=== PATIENT | male | born 1960 | race Caucasian/White ===

== ENCOUNTER 2024-06-15 07:51 | Emergency (ER) | payer MEDICARE, MEDICAID, SELFPAY ==
[2024-06-15 07:53] VITALS: BMI 23.3
[2024-06-15 08:02] VITALS: BP 114/80; PULSE 67; RESP 18; TEMP 36.6; O2SAT 97
--- NOTE | 2024-06-15 08:26 | XR_ITS ---
Examination: CT abdomen with intravenous contrast CT pelvis with intravenous contrast 2-D coronal reconstructions 2-D sagittal reconstructions Date and time of exam:June 15, 2024 1040 hours INDICATIONS: Generalized abdominal pain with diarrhea rectal pain beginning 7 weeks ago. CTDI: vol (mGy) 5.26 DLP: (mGycm) 286 Technique: Multiple axial sections of the abdomen and pelvis have been obtained. 64 slice high-resolution scanner used. 3 mm axial sections have been obtained, post intravenous injection 30 cc [id number] 2-D sagittal, coronal reconstructions obtained. Low dose protocols were performed. One or more of the following dose reduction techniques were used; automated exposure control, adjustment of the mA and/or KV according to patient size, use of iterative reconstruction technique. Findings: 11 mm left lobe liver cyst Gallbladder wall appears minimally thickened Spleen is not enlarged No pancreatic mass 21 mm indeterminate right adrenal nodule Abdominal aortic calcification no aneurysmal dilatation No renal or ureteral calculi, no hydronephrosis Normal appendix No bowel obstruction Colonic diverticulosis Transverse prostate dimension 5.1 cm No diverticulitis Urinary bladder intact Significant osteopenia with advanced disc narrowing L4-L5, L5-S1 Thickening the rectal wall, differential would include proctitis, early rectal tumor not excluded IMPRESSION: 21 mm indeterminate right adrenal nodule, not visualized on the 2012 CT examination Recommend MRI abdomen adrenal glands follow-up, pre and postcontrast to exclude primary or metastatic right adrenal gland tumor Moderate prostatomegaly Thickening of the rectal wall, differential would include early rectal tumor, clinical correlation advised
--- NOTE | 2024-06-15 08:28 | PD.EDRME ---
Rapid Medical Screening Exam E Arrival date/time: 06/15/24 07:51 64-year-old male presents to the emergency department with complaints of watery diarrhea, rectal pain that radiates into his testicles reports is feeling weak. I have greeted and performed a focused initial assessment of this patient. Initial appropriate labs ordered at this time. A comprehensive ED assessment and evaluation of the patient and analysis of all test and completion of medical decision making process will be conducted by additional ED provider. Chief Complaint: General Adult/Misc Complain Time Seen by Provider: 06/15/24 08:04 Vital signs: Vital Signs Temperature 97.9 F 06/15/24 08:02 Pulse Rate 67 06/15/24 08:02 Respiratory Rate 18 06/15/24 08:02 Blood Pressure 114/80 06/15/24 08:02 Pulse Oximetry (%) 97 06/15/24 08:02 Oxygen Delivery Method Room Air 06/15/24 08:02
[2024-06-15 08:44] LABS: Basophils # (Auto) 0.1 Thou/mm3 (0.0-0.2); Basophils % (Auto) 0 % (0-2.5); Eosinophils # (Auto) 0.1 Thou/mm3 (0.0-0.5); Eosinophils % (Auto) 0 % (0-10); Hematocrit 39.7 % (41.0-53.0); Hemoglobin 14.2 g/dL (13.5-16.0); Immature Granulocytes % (Auto) 1 % (0-0); Immature Granulocytes Auto 0.21 Thou/mm3 (0.00-0.00); Lymphocytes # (Auto) 2.2 Thou/mm3 (1.0-4.8); Lymphocytes % (Auto) 9 % (10-50); Mean Corpuscular HGB Conc 35.8 g/dl (31.0-37.0); Mean Corpuscular Hemoglobin 32.1 pg (25.0-35.0); Mean Corpuscular Volume 90 fL (80-100); Monocytes # (Auto) 1.3 Thou/mm3 (0.0-0.8); Monocytes % (Auto) 5 % (0-12); Neutrophils # (Auto) 21.1 Thou/mm3 (1.8-7.7); Neutrophils % (Auto) 85 % (37-80); Nucleated Red Blood Cell % 0 /100 WBC (0); Platelet Count 390 Thou/mm3 (140-440); RDW Standard Deviation 44.4 fL (35.1-43.9); Red Blood Count 4.43 Miln/mm3 (4.50-5.90)
[2024-06-15 09:01] LABS: Alanine Aminotransferase 20 U/L (10-49); Albumin, Serum 4.9 gm/dL (3.4-4.8); Albumin/Globulin Ratio 1.6 (1.2-2.2); Alkaline Phosphatase 183 U/L (46-116); Anion Gap 12 (7-16); Aspartate Amino Transferase 25 U/L (0-34); BUN/Creatinine Ratio 23 Ratio (12-20); Bilirubin,Total 0.7 mg/dL (0.3-1.2); Blood Urea Nitrogen 32 mg/dL (9-23); Calcium 10.5 mg/dL (8.3-10.6); Calcium (Corrected) 10.5 mg/dL (8.5-10.1); Carbon Dioxide 23.4 mMol/L (20.0-31.0); Chloride 96 mMol/L (98-107); Creatinine (Component) 1.4 mg/dL (0.6-1.3); Estimated Creatinine Clearance 46.4 mL/min (>60); Globulin 3.1 gm/dL (2.3-3.5); Glucose 129 mg/dL (74-106); Lipase 35 U/L (12-53); Osmolality,Calculated 271 (275-295); Potassium 3.5 mMol/L (3.4-5.1); Sodium 131 mMol/L (136-145); eGFR 56 See Note
[2024-06-15 09:03] VITALS: BP 94/67; PULSE 88; RESP 17; TEMP 36.5; O2SAT 100
--- NOTE | 2024-06-15 09:21 | PC.NURSE ---
Pt sent from [facility], states ====
--- NOTE | 2024-06-15 09:22 | PC.NURSE ---
Pt comes from [facility] with chronic hemorrhoid issues for about 7 months. States that the pain now radiates to the penis, to the point that he has to sit in warm water to urinate, Pt states that he did originally have constipation issues, but for several days no has had diarrhea. Also states decrease in appetite with n/v. Complains of muscle cramping as well
[2024-06-15 09:23] LABS: Prothrombin Time 10.8 Seconds (9.0-12.2)
--- NOTE | 2024-06-15 09:26 | PD.EDNV ---
Nausea/Vomit./Diarrhea-RME/HPI General Chief complaint: General Adult/Misc Complain Stated complaint: Hemorrhoids flare up Time Seen by Provider: 06/15/24 08:04 Arrival date/time: 06/15/24 07:51 RME / HPI RME / HPI Narrative: 06/15/24 07:51 64-year-old male presents to the emergency department with complaints of watery diarrhea, rectal pain that radiates into his testicles reports is feeling weak. I have greeted and performed a focused initial assessment of this patient. Initial appropriate labs ordered at this time. A comprehensive ED assessment and evaluation of the patient and analysis of all test and completion of medical decision making process will be conducted by additional ED provider. --------- Main ED Evaluation: Patient is a 64-year-old male with past medical history of hypertension, hyperlipidemia, and glaucoma who presents to the ED on 06/15/2024 due to worsening watery diarrhea, rectal pain radiating to the penis and testicles, and feeling generalized weakness for the last 2 weeks. Patient reports these issues started about 7 months ago but have been worsening and increasing in frequency. Patient also noted prior history of constipation and has a prescription for docusate but states he has not been taking it. Yesterday he had about 10 episodes of diarrhea, and sometimes he notes yellow discharge from the rectum. Patient reports the rectal pain is constant, rated about 9/10, worse with bowel movements, better with warm water baths and proctozone hemorrhoid cream. Patient also reports difficulty urinating unless he is in sitting in a warm bath but denies dysuria, frequency, or hematuria. He reports some abdominal cramping with bowel movements but the worst pain is rectal. He denies any hematochezia or melena. He reports intermittent episodes of nausea and vomiting, last episode of vomiting 2 weeks ago. He reports decrease in appetite but is unsure if he has had any weight loss. He denies any recent antibiotic usage. MD complaint: diarrhea Onset (ago): month(s) Description of Diarrhea: water and mucous Associated Abdominal Pain: No Location of pain: other (rectum) Radiation: other (penis and scrotum) Severity: severe Consistency: intermittent Relieving factors: rest and other (warm bath) Exacerbating factors: bowel movement Associated symptoms: loss of appetite, malaise, nausea/vomiting and weakness Related Data Home Medications ?Medication ?Instructions ?Recorded ?Confirmed latanoprost 0.005 % eye drops 1 drp ophthalmic (eye) QPM 03/09/18 06/23/24 timolol maleate 0.5 % eye drops 1 drp ophthalmic (eye) BID 03/09/18 08/02/18 atorvastatin 40 mg tablet 40 mg PO QDAY 06/23/24 06/23/24 brimonidine 0.15 % eye drops 1 drp ophthalmic (eye) Q8H 06/23/24 06/23/24 docusate sodium 100 mg capsule 100 mg PO QDAY 06/23/24 06/23/24 hydrochlorothiazide 25 mg tablet 25 mg PO QDAY 06/23/24 06/23/24 hydrocortisone 2.5 % topical cream 06/23/24 with perineal applicator (Proctozone-HC) losartan 100 mg tablet 100 mg PO QDAY 06/23/24 06/23/24 Previous Rx's ?Medication ?Instructions ?Recorded guaifenesin 100 mg/5 mL oral liquid 200 mg (10 mL) PO Q4H PRN cold 05/11/18 symptoms #237 mL loratadine 10 mg capsule (Claritin 10 mg PO QDAY #10 caps 05/11/18 Liqui-Gel) loperamide 2 mg capsule 2 mg PO Q6H PRN loose stool #30 06/15/24 caps Allergies Allergy/AdvReac Type Severity Reaction Status Date / Time No Known Allergies Allergy Verified 06/22/24 08:48 Review of Systems Review of Systems Systems Reviewed: All systems reviewed, normal except as documented Constitutional Constitutional: Reports chills, Reports fever(s), Reports poor appetite and Reports lethargy Past Medical History Past Medical History Comments PMH COMMENT: Past Medical History: Hypertension, hyperlipidemia, glaucoma Family History: Significant for cancers in maternal side aunts and uncles, mother from lung cancer Surgical History: Cataract removal, stent for glaucoma Social History: Current smoker 1 PPD since age 16 (48 pack years), occasional current alcohol use (one drink every couple months), denies recreational drug use Current Medications: Losartan 100 mg qday, hydrochlorothiazide 25 mg qday, atorvastatin 40 mg qday, docusate 100 mg prn, brimonidine tartrate 0.15% 1 drop q8h, latanoprost 0.005% 1 drop qday (Source: Patient medication bottles) Allergies: No known drug allergies ED Exam Narrative Physical exam: Physical Exam General: Awake and in no acute distress. Conversational and non-toxic appearing, appears older than age. HEENT: Normocephalic, atraumatic, mucous membranes moist. Exotropia of the eyes present. Patient is partially blind. Heart: Regular rate and rhythm, no murmurs. Lungs: Clear to auscultation with no wheezing or crackles. Abdomen: Soft, nondistended, nontender, positive bowel sounds. ?No guarding or rebound tenderness. /Rectal: Perineum is mildly erythematous but without firmness, fluctuance, or tenderness. There is one external hemorrhoid present in the anal opening. Normal anal spincter tone. Prostate is mildly enlarged but smooth without nodules nor tenderness. No stool, mucous, or blood was noted on exam. Neurologic: Alert and oriented x3, no gross neurological deficit, and patient able to move all 4 extremities. Extremities: No edema. Skin: No rash or ecchymoses. Course Quality Measures none Orders Category Date Time Status CT Screening NOW Care 06/15/24 08:26 Completed Consult Immigration Paralegal NOW Care 06/15/24 09:37 Completed NPO STAT Care 06/15/24 08:26 Completed Consult to Gastroenterology Stat Cons 06/15/24 15:[address] abdomen pelvis w con Stat Exams 06/15/24 08:26 Completed CBC Stat Lab 06/15/24 08:30 Completed Calprotectin, Stool* Stat Lab 06/15/24 15:53 Completed Clostridium Difficile PCR Stat Lab 06/15/24 11:30 Completed Comprehensive Metabolic Panel Stat Lab 06/15/24 08:30 Completed Lipase Stat Lab 06/15/24 08:30 Completed Magnesium Stat Lab 06/15/24 08:30 Completed Prothrombin Time with INR Stat Lab 06/15/24 08:30 Completed Stool Culture Stat Lab 06/15/24 11:30 Completed Stool for WBCs Stat Lab 06/15/24 11:30 Completed Urinalysis Stat Lab 06/15/24 11:52 Completed Urine Culture Stat Lab 06/15/24 11:52 Completed Sodium Chloride 0.9% 1000 ml [Ns] 1,000 ml Med 06/15/24 09:56 Discontinued IV 999 mls/hr Vital Signs Vital signs: Vital Signs Temperature 97.9 F 06/15/24 08:02 Pulse Rate 67 06/15/24 08:02 Respiratory Rate 18 06/15/24 08:02 Blood Pressure 114/80 06/15/24 08:02 Pulse Oximetry (%) 97 06/15/24 08:02 Oxygen Delivery Method Room Air 06/15/24 08:02 Nausea/Vomiting/Diarrhea MDM Narrative MDM Narrative:: Patient presents with a chronic to subacute chronicity of watery diarrhea and rectal pain. He endorses history of hemorrhoids and past history of using hemorrhoid ointment as prescribed by his primary care at [facility]. The pain has been worsening and spreading according to the patient to the penis and the testicles. Labs reveal leukocytosis of 25.0 with neutrophilic shift, electrolyte abnormalities including sodium 131, chloride 96, and elevated BUN 32, creatinine 1.4. Patient does not have known CKD according to the patient. Calcium also is slightly elevated at 10.5. At this point differentials may include inflammatory bowel disease, irritible bowel syndrome, malignancy, gastroenteritis, C. diff infection, Juan's gangrene, external hemorrhoids, colitis. BRITTANY may be prerenal secondary to dehydration secondary to bowel losses. A CT abdomen/pelvis with contrast is pending at this time. Update: CT showed 21 mm indeterminate right adrenal nodule, moderate prostatomegaly, thickening of the rectal wall. Patient was informed of results. Consulted with Timothy, and ultimately we decided patient could have workup and be scheduled outpatient for colonoscopy. Patient was comfortable with this plan, informed of all findings on CT, given copy of report and stated he would schedule a follow up with his primary in the next week. Patient data External records reviewed:: [facility] previous records Clinical information provided by:: patient Social determinants that could affect healthcare access:: other (specify) (patient is partially blind and cannot drive) Patient has the following chronic illnesses:: As above How is presenting disease/condition affected by chronic disease/condition?: uneffected by Evaluation data The following diagnostics were reviewed and interpreted by me:: lab results and radiology exam(s) Lab and/or radiology exams considered but not ordered:: Ordered Interpretation Summary: Labs reveal leukocytosis of 25.0 with neutrophilic shift, electrolyte abnormalities including sodium 131, chloride 96, and elevated BUN 32, creatinine 1.4. Patient does not have known CKD according to the patient. Calcium also is slightly elevated at 10.5. ------- CT abdomen with intravenous contrast CT pelvis with intravenous contrast Findings: 11 mm left lobe liver cyst Gallbladder wall appears minimally thickened Spleen is not enlarged No pancreatic mass 21 mm indeterminate right adrenal nodule Abdominal aortic calcification no aneurysmal dilatation No renal or ureteral calculi, no hydronephrosis Normal appendix No bowel obstruction Colonic diverticulosis Transverse prostate dimension 5.1 cm No diverticulitis Urinary bladder intact Significant osteopenia with advanced disc narrowing L4-L5, L5-S1 Thickening the rectal wall, differential would include proctitis, early rectal tumor not excluded IMPRESSION: 21 mm indeterminate right adrenal nodule, not visualized on the 2012 CT examination Recommend MRI abdomen adrenal glands follow-up, pre and postcontrast to exclude primary or metastatic right adrenal gland tumor Moderate prostatomegaly Thickening of the rectal wall, differential would include early rectal tumor, clinical correlation advised ------- Medications / Prescriptions Medications / Prescriptions considered but not ordered:: Given Medication administrations:: Medication Administration History Discontinued Medications Sodium Chloride (Ns) 1,000 mls @ 999 mls/hr IV .Q1H1M ONE Stop: 06/15/24 10:56 Last Infusion: 06/15/24 11:06 Dose: Infused Documented By: Admin: 06/15/24 10:05 Dose: 999 mls/hr Documented By: CS Given Consultations Consultation(s) initiated? (list below): No Consultation #1 (Physician, Specialty, Details): Gastroenterology on-call, Dr. Aguirre 12:07 Stated he was currently in with a patient, will call back 15:38 Discussed patient's presentation, examination, and findings - recommends C. diff studies, fecal calprotectin, ANCA, starting GoLytely prep for colonoscopy tomorrow. 17:[address] Aguirre, as the patient is stable and presenting issues are more chronic, he may get colonoscopy outpatient. Patient may call Dr. Aguirre's office to schedule an appointment. Diagnosis Nausea Differential Diagnosis: traveler's diarrhea, food poisoning, clostridium difficile infection and dehydration Most likely diagnosis given after review of the tests above:: Irritable bowel disease Admission Indicated Admission indicated?: not indicated Admission Request Was there a request for admission?: No Disposition Plan Disposition Plan: Discharge Discharge Attestation Discharge Attestation: The patient and all family members were given an opportunity to ask questions and understood the discharge instructions. Discharge instructions specifically effects, indications for sooner follow up or return to the emergency department, and the expected course of current diagnosis. Patient condition: Stable Discharge Plan Plan Patient Disposition: HOME (Self Care) Patient condition on transfer: Stable Prescriptions/Referrals Prescriptions/Med Rec: New loperamide 2 mg capsule 2 mg PO Q6H PRN (Reason: loose stool) Qty: 30 0RF No Action loratadine [Claritin Liqui-Gel] 10 mg capsule 10 mg PO QDAY Qty: 10 0RF guaifenesin 100 mg/5 mL liquid 200 mg PO Q4H PRN (Reason: cold symptoms) Qty: 237 0RF latanoprost 0.005 % Drops 1 drp OPHTHALMIC (EYE) QPM timolol maleate 0.5 % Drops 1 drp OPHTHALMIC (EYE) BID brimonidine 0.15 % drops 1 drp OPHTHALMIC (EYE) Q8H Patient Comments: INSTILL 1 DROP INTO BOTH EYES EVERY 8 HOURS FOR 30 DAYS hydrochlorothiazide 25 mg tablet 25 mg PO QDAY atorvastatin 40 mg tablet 40 mg PO QDAY losartan 100 mg tablet 100 mg PO QDAY docusate sodium 100 mg capsule 100 mg PO QDAY hydrocortisone [Proctozone-HC] 2.5 % cream with perineal applicator Referrals: Obdulia Aguirre MD [Physician] - In 1 week No Primary/Family,Physician [Primary Care Provider] - In 1 week Problem List Clinical Impression: Diarrhea, Pain in rectum Patient/Caregiver Discharge Instructions Discharge Activity: activity as tolerated and resume usual activities Education Materials: Low-Fiber Diet, Treating Diarrhea, Self-Care for Vomiting and Diarrhea, Anatomy of the Digestive System, ED Diarrhea, Unknown Cause Additional Instructions: You will need a colonoscopy procedure to further investigate your diarrhea and rectal pain. CT scan findings showed that there is some enlargement of your prostate, thickening of the rectum which needs to be investigated further, and a 2 cm nodule on the right adrenal gland (above the kidney) which may need further investigation as well. Please bring these results to your primary doctor. Your primary doctor should also review the results of the stool studies done here at the hospital after they have resulted in a few days. Please make an appointment for Dr. Aguirre's office: [address] [place] [address] If unable to make a direct appointment, please call your primary doctor's office and schedule an appointment as soon as possible and ask for a referral. You should also ask for a referral to see a Urologist for the problems with urinating. Print Language: Northern Irish Stand Alone Forms: Julee Award Info., Patient Portal Info Letter Attestation Attestation The patient was seen by the PGY 2. I, the supervising physician, also encountered and examined the patient and remained present during the entire ER visit. With the PGY 2 we formulated the encounter, workup, management, treatment, and medical decision making. I agree with the plan and documentation. On my encounter patient notes that he has been told he has hemorrhoids and has had intermittent diarrhea with occasional blood that he describes as nonpainful. He denies anterior abdominal pain as well. I was present also as a food and beverage attendant with the PGY 2 rectal exam where it notes little to no pain around the rectal verge area, nor with palpation of the prostate so overall clinically very well-appearing. Laboratory testing is otherwise unremarkable, but it is significant for a mildly elevated leukocytosis at 20,000, and a creatinine of 1.4. Patient has no baseline labs to compare to, he is clinically well-appearing, I do not feel that these are likely to be acute findings. As this firmness or this mass on the CT appears to be painless on exam, this raises concerns for a malignancy. I do not feel that this is a proctitis or an infectious/inflammatory process as he has minimal to almost no pain on exam. Case discussed with the GI specialist and we do agree he is appropriate for outpatient colonoscopy.
[2024-06-15] MEDS: SODIUM CHLORIDE 0.9% 1000 ML 1,000 ML 999 ML IV (10:05)
[2024-06-15 10:10] VITALS: BP 90/67; PULSE 83; RESP 21; TEMP 36.5; O2SAT 100
[2024-06-15 12:00] VITALS: BP 94/67; PULSE 79; RESP 19; TEMP 36.7; O2SAT 99
[2024-06-15 13:04] LABS: Collection Type, Urine Catheter; Squamous Epithelial Cell,Urine 0 /hpf (0-5)
[2024-06-15 13:18] LABS: Bilirubin,Urine Negative (Negative); Blood,Urine Negative (Negative); Clarity,Urine Clear (Clear/Hazy); Color,Urine Lt-Yellow (Lt Yel-Yel); Glucose, Urine Negative (Negative); Hyaline Casts,Urine < 1 /hpf (0-1); Ketones,Urine Negative (Negative); Leukocyte Esterase,Urine Negative (Negative); Nitrite,Urine Negative (Negative); Protein,Urine Negative (Neg - Trace); RBC,Urine 1 /hpf (0-3); Specific Gravity,Urine 1.011 (1.001-1.035); Urobilinogen,Urine Negative mg/dL (0.0-1.0); WBC,Urine 2 /hpf (0-5)
[2024-06-15 13:18] LABS: Stool for WBCs None Seen (Negative)
[2024-06-15 13:57] VITALS: BP 104/71; PULSE 78; RESP 20; TEMP 36.8; O2SAT 99
[2024-06-15 16:11] VITALS: BP 113/64; PULSE 68; RESP 20; TEMP 36.4; O2SAT 100
[2024-06-15 17:28] LABS: Clostridium Difficile PCR Negative (Negative)
--- NOTE | 2024-06-15 18:34 | PC.NURSE ---
Miguel called for pt to self pay per charge nurse
[2024-06-23 06:24] LABS: Calprotectin, Stool* 166 mcg/g
== END 2024-06-15 18:11 | disposition home or self-care (01) ==
PROVIDERS: Nurse Practitioner Primary Care; Student in an Organized Health Care Education/Training Program; Emergency Provider Emergency Medicine
DX: K62.89 Other specified diseases of anus and rectum (principal); E27.8 Other specified disorders of adrenal gland; K64.4 Residual hemorrhoidal skin tags; R19.7 Diarrhea, unspecified; N40.0 Benign prostatic hyperplasia without lower urinary tract symptoms; D72.829 Elevated white blood cell count, unspecified; R79.89 Other specified abnormal findings of blood chemistry; R94.4 Abnormal results of kidney function studies; E87.8 Other disorders of electrolyte and fluid balance, not elsewhere classified
CPT/HCPCS: 36415; 74177; 80053; 81001; 83690; 83735; 83993; 85025; 85610; 86021; 86036; 87015; 87045; 87046; 87086; 87205; 87493; 87899; 96360; 99285; A4649; J7030; Q9967

== ENCOUNTER 2024-06-22 08:45 | Inpatient (IN) | payer MEDICARE, MEDICAID, SELFPAY ==
[2024-06-22] VITALS (9 sets, daily range): BP systolic 97–124; BP diastolic 56–62; PULSE 70–122; RESP 16–100; TEMP 35.4–36.7; O2SAT 98–100; BMI 20.8
--- NOTE | 2024-06-22 09:05 | EDNOTE_ITS ---
ED GI Bleed RME/HPI General Chief complaint: GI Bleed Stated complaint: RECTAL MASS CAUSING SEPSIS CRITERIA PER [facility] Time Seen by Provider: 06/22/24 08:58 Arrival date/time: 06/22/24 08:45 RME / HPI RME / HPI Narrative: 64 year old male with history of hypertension, hyperlipidemia presents to the ED sent from PCP at [facility] for evaluation of rectal mass and rule out sepsis. Patient states he had a CT performed on 06/15/2024 and on follow-up appointment today was told there was rectal wall thickening and advised to come for further evaluation. Patient additionally reported diarrhea with no blood on/off for 2 months. Related Data Home Medications ?Medication ?Instructions ?Recorded ?Confirmed latanoprost 0.005 % eye drops 1 drp ophthalmic (eye) Q PM 03/09/18 08/02/18 timolol maleate 0.5 % eye drops 1 drp ophthalmic (eye) BID 03/09/18 08/02/18 Previous Rx's ?Medication ?Instructions ?Recorded guaifenesin 100 mg/5 mL oral liquid 200 mg (10 mL) PO Q4H PRN cold 05/11/18 symptoms #237 mL loratadine 10 mg capsule (Claritin 10 mg PO QDAY #10 c aps 05/11/18 Liqui-Gel) loperamide 2 mg capsule 2 mg PO Q6H PRN loose stool #30 06/15/24 caps Allergies Allergy/AdvReac Type Severity Reaction Status Date / Time No Known Allergies Allergy Verified 06/22/24 08:48 Review of Systems Review of Systems Narrative Review of Systems: Constitutional: DENIES; Fevers Eyes: DENIES; Loss of vision Head/Ear/Nose: DENIES; Loss of hearing Throat: DENIES; Dysphagia Cardiovascular: DENIES; Chest pain, dyspnea or syncope Respiratory: DENIES; Shortness of breath Gastrointestinal: SEE HPI +diarrhea, rectal pain DENIES; Rectal bleeding or melena. Genitourinary: DENIES; Dysuria (painful or difficult urination) Musculoskeletal: DENIES; Arthralgia (pain in a joint),; Skin: DENIES; Rash Neurological: DENIES; Loss of function or movement Psychiatric: DENIES; recent major life stressor, emotional problem, illicit drug use or abuse Endocrinology: DENIES; Weight change Hematologic/Lymphatic: DENIES; Abnormal bruising Allergic/Immunologic: DENIES; Urticaria (hives) Past Medical History Past Medical History CARDIAC: Positive Cardiac Disorders (HTN) and Hypertension RESPIRATORY: Positive Bronchitis GASTROINTESTINAL: Positive Gastrointestinal Disorders and Hemorrhoids ENT: Positive Cataracts and Glaucoma OTHER HISTORY: Positive Chicken Pox, Measles and Mumps Family History FAMILY HISTORY: Positive Family Cancer (Many types on mom's side) Social History SMOKING STATUS: Heavy (> 1 pack/day) ED Exam Narrative Physical exam: Physical Exam: General: The vital signs were reviewed. Patient is hypotensive and tachycardic on arrival. The patient is non-toxic, in no apparent distress and appears healthy with a patent airway, no respiratory distress and has no apparent circulatory problems. Head & Scalp: Normocephalic, atraumatic. Face: Appears normal and is without lesions, deformity. Ears: Left external pinna appears normal. Right external pinna appears normal. Eyes: The sclera is anicteric. No obvious photophobia. The Left and Right Orbit/Lid/Conjunctiva appears normal without swelling, discoloration or injection. Nose: The nose is without deformity, discharge or tenderness; Throat: Appears normal. The mucous membranes are pink and moist without exudates, redness or mass seen. The tongue appears normal. Neck: The neck is supple and no apparent mass or adenopathy. Chest: The chest wall is normal in size and symmetry and has no chest wall tenderness or crepitus. The patient displays normal ventilator effort without retractions, accessory muscle use and has adequate air movement bilaterally with no wheezes and no rales. Cardiovascular: Regular rate and rhythm; No murmurs, rubs, or gallops; Gastrointestinal: The abdomen appears normal. No obvious hernias or mass. The abdomen is soft and benign, non-distended, with no pain, no guarding and no rebound tenderness. Bowel sounds are present and normal sounding. No CVA tenderness. Genitourinary: Rectal exam was done with some minimal hematochezia and he is got an obvious posterior rectal mass probably for 4 cm in length by 2 cm wide Back/Spine: Normal Spektor nontender Extremities/Musculoskeletal/lymphatic: The bilateral upper and lower extremities are warm. There is no evidence of arterial insufficiency. There is no evidence of venous insufficiency/edema. The patient spontaneously moves bilateral upper and lower extremities with no pain and no limitation of movement. There is no apparent, injury or trauma. Skin: The skin is warm, dry and intact. No rashes. No petechia. No purpura. No abnormal bruising. The color is appropriate with no cyanosis. Mental status/Psychiatric: Mental status is appropriate for age. The patient has no apparent delusions, visual hallucinations, no apparent audible hallucinations. The patient has no apparent suicidal thoughts/ideation and no apparent homicidal thoughts/ideation. Neurological: The patient is awake, alert, interactive, cordial, cooperative and is oriented to name and situation. The patient follows commands and answers historical question with no impairment. There is no visual disturbance apparent. The pupils are equal and reactive bilaterally with normal eye movements and no diplopia The bilateral upper and lower extremities have normal strength, normal range of motion and normal functioning. The gait, station and balance appear not tested due to acuity Course Quality Measures none Orders Category Date Time Status Admit to Inpatient Status Routine Admission 06/22/24 14:45 Active Patient Condition Routine Admission 06/22/24 14:45 Ordered Insert IV NOW Care 06/22/24 09:06 Active Insert IV NOW Care 06/22/24 09:06 Active Notify provider NEEDED Care 06/22/24 14:45 Active Occult Blood,Stool (Nursing) NOW Care 06/22/24 09:12 Active Sequential Compression Device QSHIFT Care 06/22/24 14:45 Active Consult to Gastroenterology Routine Cons 06/22/24 14:51 Ordered Diet Clear Liquid Diet 06/22/24 Dinner Active XR chest 1V portable Stat Exams 06/22/24 09:06 Completed A1C [Glycohemoglobin w (eAG)] AM DRAW Lab 06/23/24 05:00 Ordered Blood Culture (Lab) Stat Lab 06/22/24 10:23 Received CBC AM DRAW Lab 06/23/24 05:00 Ordered CBC AM DRAW Lab 06/24/24 05:00 Ordered CBC AM DRAW Lab 06/25/24 05:00 Ordered CBC Stat Lab 06/22/24 09:30 Completed CEA [Carcinoembryonic Antigen] Routine Lab 06/22/24 15:55 Completed Comprehensive Metabolic Panel AM DRAW Lab 06/23/24 05:00 Ordered Comprehensive Metabolic Panel AM DRAW Lab 06/24/24 05:00 Ordered Comprehensive Metabolic Panel AM DRAW Lab 06/25/24 05:00 Ordered Comprehensive Metabolic Panel Stat Lab 06/22/24 09:30 Completed Lactate (Lactic Acid) Stat Lab 06/22/24 09:30 Completed Lipase Stat Lab 06/22/24 09:30 Completed Lipid Panel AM DRAW Lab 06/23/24 05:00 Ordered Magnesium AM DRAW Lab 06/23/24 05:00 Ordered Magnesium AM DRAW Lab 06/24/24 05:00 Ordered Magnesium AM DRAW Lab 06/25/24 05:00 Ordered Prothrombin Time with INR Stat Lab 06/22/24 09:30 Completed Thyroid Stimulating Hormone AM DRAW Lab 06/23/24 05:00 Ordered Type and Screen Stat Lab 06/22/24 10:16 Completed Urinalysis Stat Lab 06/22/24 09:55 Completed Urinalysis, C/S if Indicated Stat Lab 06/22/24 09:55 Completed Venous Blood Gas Stat Lab 06/22/24 09:30 Completed Acetaminophen Tab [Tylenol Tab] Med 06/22/24 14:45 Active 650 mg PO Q6H PRN HYDROcodone*/APAP 5/325 [Spade 5/325] Med 06/22/24 14:45 Active 1 tab PO Q4HR PRN NA ROBERTSON/NAHCO3/DANNI/PEG (Golytely) [Golytely] Med 06/22/24 14:45 Discontinued 4,000 ml PO X1 ONE Ondansetron Inj [Zofran Inj] Med 06/22/24 14:45 Active 4 mg IV Q6H PRN Pantoprazole [Protonix] Med 06/22/24 15:00 Active 40 mg PO QDAY Sodium Chloride 0.9% 1000 ml [Ns] 1,000 ml Med 06/22/24 09:15 Active IV 100 mls/hr Sodium Chloride 0.9% 1000 ml [Ns] 1,000 ml Med 06/22/24 09:06 Discontinued IV 999 mls/hr Code Status Routine Oth 06/22/24 14:45 Ordered Oxygen Delivery PRN RT 06/22/24 14:45 Active Vital Signs Vital signs: Vital Signs Temperature 97.9 F 06/22/24 09:00 Pulse Rate 122 H 06/22/24 09:00 Respiratory Rate 18 06/22/24 09:00 Blood Pressure 97/62 06/22/24 09:00 Pulse Oximetry (%) 98 06/22/24 09:00 Oxygen Delivery Method Room Air 06/22/24 09:00 Pulse ox is 98% on room air which is adequate. GI Bleed MDM Narrative MDM Narrative:: Patient is a 64-year-old gentleman who comes in sent by the clinic concerned that he might be septic. Patient arrived tachycardic and hypotensive he had some hematochezia on my rectal exam and he has an obvious rectal mass. He was in no pain. He got a liter of fluid and his vital signs normalized. His white count was 20.3 thousand. And since he was tachycardic a septic alert was called. Bicarb Absorbase CO2 was 19 slightly low BUN is bumped at 45 and creatinine is 1.9 consistent with acute kidney injury lactic acid was urinalysis came back essentially negative. Chest x-ray was unremarkable there are some chronic changes possibly some lower interstitial stuff. Because the patient initially presents as sepsis and got fluids. Because of multiple abnormalities mentioned above the hospitalist was called and they will admit the patient to start this out further hydrate him to get his kidney function hopefully to return to baseline and then Dr. Aguirre will be involved and presumably get biopsies. While the patient may have met sepsis criteria there is actually no source and I believe he is dehydration only. Therefore no antibiotics were given while in the emergency department. Vital signs normalized after 1 L so the full 30 cc/kg bolus was not given since his lactic a feliz was only 1.9. Hospitalist were aware of all this and admitted the patient Patient data External records reviewed:: [facility] previous records (I reviewed ED visit on 06/15/2024 ) Clinical information provided by:: patient Social determinants that could affect healthcare access:: none Patient has the following chronic illnesses:: hypertension, hyperlipidemia How is presenting disease/condition affected by chronic disease/condition?: uneffected by Evaluation data The following diagnostics were reviewed and interpreted by me:: lab results and radiology exam(s) Lab and/or radiology exams considered but not ordered:: None Interpretation Summary: Ordering Physician: Robert Williamson MD Date of Service: 06/22/24 Procedure(s): XR chest 1V portable Accession Number(s): [id number] cc: Robert Williamson MD; Garth Landis MD; NO PRIMARY/FAMILY,PHYSICIAN~ Examination: AP chest single view Technique one AP portable upright chest single view Exam date and time: June 22, 2024 1026 hrs. Indications: Fever today Findings: Marked accentuation interstitial markings at the lung bases Normal heart size No pulmonary edema Prominent osteopenia Impression: Basilar bronchitis versus early bibasilar bronchopneumonia, clinical correlation advised Dictated By: Garth Landis MD Signed By: <Electronically signed by Garth Landis MD in OV> 06/22/24 1038 Medications / Prescriptions Medications or Prescriptions considered but not ordered:: None Medication administrations:: Medication Administration History Acetaminophen (Acetaminophen 325 Mg Tablet) 650 mg PO Q6H PRN PRN Reason: pain and Fever >100.4 Stop: 07/22/24 14:44 Hydrocodone Bitart/Acetaminophen (Hydrocodone/Apap 5/325 Tablet) 1 tab PO Q4HR PRN PRN Reason: PAIN SCALE 4-10(Mod-Sev Stop: 06/27/24 14:44 Sodium Chloride (Ns) 1,000 mls @ 100 mls/hr IV .Q10H ERINN Stop: 07/22/24 09:14 Last Admin: 06/22/24 09:49 Dose: 100 mls/hr Documented By: SAIMA Ondansetron HCl (Ondansetron Inj 2 Mg/Ml Inj 2 Ml) 4 mg IV Q6H PRN; Protocol PRN Reason: NAUSEA OR VOMITING Stop: 07/22/24 14:44 Pantoprazole Sodium (Pantoprazole 40 Mg Tablet) 40 mg PO QDAY ERINN Stop: 07/22/24 14:59 Last Admin: 06/22/24 15:19 Dose: 40 mg Documented By: CS Discontinued Medications Sodium Chloride (Ns) 1,000 mls @ 999 mls/hr IV .Q1H1M ONE Stop: 06/22/24 10:06 Last Infusion: 06/22/24 10:49 Dose: Infused Documented By: Admin: 06/22/24 09:48 Dose: 999 mls/hr Documented By: SAIMA Nicotine (Nicotine Patch 14 Mg/24 Hr Patch.Td24) 14 mg TOP X1 ONE Stop: 06/22/24 15:14 Last Admin: 06/22/24 16:20 Dose: 14 mg Documented By: SAIMA Polyethylene Glycol/Electrolytes (Na Robertson/Nahco3/Danni/Peg (Golytely) 4,000 Ml Btl) 4,000 ml PO X1 ONE Stop: 06/22/24 14:46 Last Admin: 06/22/24 18:30 Dose: 4,000 ml Documented By: HUGO Potassium Chloride (Potassium Chloride 20 Meq Tabcr) 40 meq PO X1 ONE Stop: 06/22/24 15:09 Last Admin: 06/22/24 15:19 Dose: 40 meq Documented By: SAIMA See above Consultations Consultation(s) initiated? (list below): Yes Consultation #1 (Physician, Specialty, Details): I spoke with hospitalist team regarding admission. Discussed patients PMHx, HPI, ED course, exam findings, labs, and radiology results. The hospitalist agree to accept the patient for admission. Diagnosis GI bleed differential diagnosis: hemorrhoids, esophageal varices, Upper gastrointestinal hemorrhage, Lower gastrointestinal hemorrhage and hematochezia Most likely diagnosis given after review of the tests above:: Rectal mass Leukocytosis Admission Indicated Admission indicated?: indicated Admission Request Was there a request for admission?: Yes Admission Attestation Admission request attestation: Discussed case with [] from Hospitalist service regarding admission. Discussed patients ED course, exam findings, labs, and radiology results. The Hospitalist [agrees,declines] to accept the patient for admission. Disposition Plan Disposition Plan: Admit Critical Care Time Critical Care Time Critical Care Time: Yes Total Critical Care Time (min.): 45 Attestation: Hematochezia hypotension tachycardia which responded to fluids and normal lactic acid does not require significant fluid hydration or resuscitation. Nonetheless patient required more attention to address 2 things upfront. The high probability of sudden, clinically significant deterioration in the patient's condition required the highest level of my preparedness to intervene urgently. The services I provided to this patient were to treat and/or prevent clinically significant deterioration. Services included the following: chart data review, reviewing nursing notes and/or old charts, documentation time, insurance healthcare consultant collaboration regarding findings and treatment options, medication orders and management, direct patient care, vital sign assessments and ordering, interpreting and reviewing diagnostic studies and lab tests. Aggregate critical care time includes only time during which I was engaged in work directly related to the patient's care, as described above, whether at bedside or elsewhere in the Emergency Department. It did not include time spent performing other reported procedures or the services of residents, students, nurses or physician assistants. Discharge Plan Plan Patient Disposition: Admit Acute Care w/in Hospital Disposition Comment: Hospitalist to admit Problem List Clinical Impression: Rectal mass, Leukocytosis, Hematochezia, Acute kidney injury
[2024-06-22 09:47] LABS: Lactate (Lactic Acid) 1.9 mMol/L (0.4-2.0)
[2024-06-22 09:48] LABS: Base Excess, Venous -7 (-3-3); Basophils # (Auto) 0.1 Thou/mm3 (0.0-0.2); Basophils % (Auto) 0 % (0-2.5); Eosinophils # (Auto) 0.1 Thou/mm3 (0.0-0.5); Eosinophils % (Auto) 0 % (0-10); Hematocrit 37.9 % (41.0-53.0); Hemoglobin 13.4 g/dL (13.5-16.0); Immature Granulocytes % (Auto) 1 % (0-0); Immature Granulocytes Auto 0.22 Thou/mm3 (0.00-0.00); Lymphocytes # (Auto) 1.7 Thou/mm3 (1.0-4.8); Lymphocytes % (Auto) 9 % (10-50); Mean Corpuscular HGB Conc 35.4 g/dl (31.0-37.0); Mean Corpuscular Hemoglobin 31.8 pg (25.0-35.0); Mean Corpuscular Volume 90 fL (80-100); Monocytes # (Auto) 0.9 Thou/mm3 (0.0-0.8); Monocytes % (Auto) 5 % (0-12); Neutrophils # (Auto) 17.4 Thou/mm3 (1.8-7.7); Neutrophils % (Auto) 85 % (37-80); Nucleated Red Blood Cell % 0 /100 WBC (0); O2 Saturation, Venous 66 % (96-97); PCO2, Venous 38 mmHg (36-56); PO2, Venous 36 mmHg (15-58); Platelet Count 432 Thou/mm3 (140-440); RDW Standard Deviation 44.4 fL (35.1-43.9); Red Blood Count 4.21 Miln/mm3 (4.50-5.90); White Blood Count 20.3 Thou/mm3 (3.8-10.6); pH, Venous 7.31 (7.33-7.66)
[2024-06-22] MEDS: SODIUM CHLORIDE 0.9% 1000 ML 1,000 ML 999 ML IV (09:48)
[2024-06-22] MEDS: SODIUM CHLORIDE 0.9% 1000 ML 1,000 ML 100 ML IV ×2 (09:49→22:41)
[2024-06-22 10:04] LABS: Collection Type, Urine Catheter; Squamous Epithelial Cell,Urine 0 /hpf (0-5)
[2024-06-22 10:10] LABS: Alanine Aminotransferase 22 U/L (10-49); Albumin, Serum 4.7 gm/dL (3.4-4.8); Albumin/Globulin Ratio 1.7 (1.2-2.2); Alkaline Phosphatase 153 U/L (46-116); Anion Gap 15 (7-16); Aspartate Amino Transferase 25 U/L (0-34); BUN/Creatinine Ratio 24 Ratio (12-20); Bilirubin,Total 0.5 mg/dL (0.3-1.2); Blood Urea Nitrogen 45 mg/dL (9-23); Calcium 9.7 mg/dL (8.3-10.6); Calcium (Corrected) 9.7 mg/dL (8.5-10.1); Chloride 97 mMol/L (98-107); Creatinine (Component) 1.9 mg/dL (0.6-1.3); Globulin 2.8 gm/dL (2.3-3.5); Glucose 107 mg/dL (74-106); Lipase 38 U/L (12-53); Osmolality,Calculated 274 (275-295); Potassium 3.1 mMol/L (3.4-5.1); Sodium 131 mMol/L (136-145); Total Protein 7.5 gm/dL (5.7-8.2); eGFR 39 See Note
[2024-06-22 10:12] LABS: Bacteria,Urine Rare; Bilirubin,Urine Negative (Negative); Blood,Urine Negative (Negative); Clarity,Urine Clear (Clear/Hazy); Color,Urine Yellow (Lt Yel-Yel); Culture Indicated,Urine Not Indicated; Glucose, Urine Negative (Negative); Hyaline Casts,Urine 2 /hpf (0-1); Ketones,Urine Negative (Negative); Leukocyte Esterase,Urine Negative (Negative); Nitrite,Urine Negative (Negative); Protein,Urine Negative (Neg - Trace); RBC,Urine < 1 /hpf (0-3); Specific Gravity,Urine 1.017 (1.001-1.035); Urobilinogen,Urine Negative mg/dL (0.0-1.0); WBC,Urine 1 /hpf (0-5)
--- NOTE | 2024-06-22 14:51 | ESHP_ITS ---
<Statement entered by Mark Sharif MD - 06/24/24 07:52> I reviewed above note and agree with findings and plans. I have also personally examined the patient with medicine team and went over assessment and plan with medical team including technology internship and resident physician. <Statement entered by Paloma Lee MD - 06/22/24 16:39> I discussed with and supervised my co-resident involved in the care of this patient. I agree with the assessment and plan as documented above. Patient is a 64 year old male with PMH of HTN, chronic smoker, who presents to the ER from his PCP for diarrhea x2 months and rectal wall thickening seen on CT. In the ER, patient had a palpable mass felt in the rectum. Denies history of colonoscopy. Patient to be admitted for intractable diarrhea with rectal mass with suspicion for colorectal cancer. GI Dr. Aguirre was consulted who plans to do colonoscopy. Paloma Lee MD PGY-3 Documentation for date of: 06/22/24 HPI History of Present Illness Chief complaint: diarrhea and concern for malignancy History of present illness: 64-year-old male with past medical history of hypertension, hyperlipidemia, glaucoma, and active smoker was admitted to the hospital on 06/22/2024 after coming to the ED with complaints of diarrhea and sent by his primary care physician due to rectal wall thickening seen on abdomen CT on 06/15/2024. On assessment patient stated that he has had diarrhea for around 2 months, but has not noticed any blood. He stated that his diarrhea is yellowish and he has been having rectal pain on and off for this time as well. Patient denied any history of cancer or any history of colon cancer in his family. He also mentioned that he has never had a colonoscopy. Patient did mention that he came in last week to the ER due to similar symptoms and he stated that he was discharged and when he went to his primary care physician they told to come back to the ER since his abdomen/pelvis CT that showed that he had thickening at the rectal wall. He mentioned that he has felt weak and dizzy, but has not had any syncopal episodes throughout the symptoms as well. Otherwise patient states he smokes pack of cigarettes per day and has some mild shortness of breath with cough, but no other complaints at this time. ED course: Initially came in tachycardic, normotensive, and afebrile. Initial labs were relevant for leukocytosis (12.3), hyponatremia (131), hypokalemia (3.9), anion gap metabolic acidosis (bicarb 19), BRITTANY (BUN 45 and creatinine 1.9), and UA was positive for bacteria. Initial imaging included chest x-ray which shows some bronchitis versus bronchopneumonia. Of note patient was seen in the ER on 06/15/2024 in which she came with similar symptoms and abdomen/pelvis CT was ordered. Abdomen/pelvis CT did show patient had thickening of the rectal wall, moderate prostatomegaly, 21 mm indeterminate right adrenal nodule, and 11 mm left lobe liver cyst. PMH: As above Social Hx: Admits smoking (1 pack/day), denies any illicit drugs, social drinking FMH: Mom had lung cancer with metastasis to bones, father did not have any cancer or colon cancer Medications: States he takes some high blood pressure medication, but does not know the name will order medication reconciliation. Allergies: NKDA Review of Systems Review of Systems Narrative Review of Systems: Constitutional: Denies sweats, Denies weight loss/gain, Denies fever, Denies chills. HEENT: Denies hearing loss, Denies ear pain, Denies postnasal drip, Denies double vision, Denies blurry vision. Respiratory: Admits shortness of breath, Denies cough, Denies wheezing. Cardiovascular: Denies chest pain, Denies palpitations, Denies sudden loss of consciousness. GI: Denies blood in stool, Denies constipation, Admits diarrhea, Denies abdominal pain, Denies difficulty swallowing, Denies nausea or vomit. : Denies urinary incontinence, Denies pain while urinating, Denies increased urinary frequency. MSK: Denies joint pain, Denies joint swelling, Denies numbness. Skin: Denies rash, Denies itching, Denies easy bruising. Neuro: Denies headaches, Denies dizziness, Denies seizures. Past Medical History Past Medical History CARDIAC: Positive Cardiac Disorders (HTN) and Hypertension RESPIRATORY: Positive Bronchitis GASTROINTESTINAL: Positive Gastrointestinal Disorders and Hemorrhoids ENT: Positive Cataracts and Glaucoma OTHER HISTORY: Positive Chicken Pox, Measles and Mumps Family History FAMILY HISTORY: Positive Family Cancer (Many types on mom's side) Social History SMOKING STATUS: Heavy (> 1 pack/day) Exam Vital Signs Temp Pulse Resp BP Pulse Ox O2 Del Method 97.4 F 77 18 101/60 100 Room Air 06/22/24 14:49 06/22/24 14:49 06/22/24 14:49 06/22/24 14:49 06/22/24 14:49 06/22/24 14:49 Narrative Exam General: A/O x3, no acute distress Eyes: R Eye deviation from prior surgery, R eye loss of vision, L eye vision grossly intact. Ears: No ear pain, no ear discharge, Hearing grossly intact. Nose: No nasal discharge. Mouth/Throat: Moist mucous membranes, no redness, no lesions. Neck: Neck supple, non-tender, no cervical lymphadenopathy. Lungs: Mild wheezing, No accessory muscle use. Cardio: Normal S1/S2, regular rhythm, no murmurs, no JVD Abdomen: Soft, non-tender, no palpable masses, peristalsis present, no guarding or rebound. Extremities: Symmetrical, no significant deformities, no peripheral edema , non-tender, peripheral pulses presents. Rectal: Nodular texture Skin: No rashes, no lesions, warm to touch. Molting in DONNELL UE with cyanosis in DONNELL hands and feet. Neuro: No focal neurological deficits. motor and sensory intact Psych: Cooperative, appropriate mood and effect. Results: Labs 06/22/24 09:30 06/22/24 09:30 Labs: Short CBC 06/22/24 Range/Units 09:30 WBC 20.3 H (3.8-10.6) Thou/mm3 Hgb 13.4 L (13.5-16.0) g/dL Hct 37.9 L (41.0-53.0) % Plt Count 432 D (140-440) Thou/mm3 BMP 06/22/24 09:30 Sodium 131 L Potassium 3.1 L Chloride 97 L Carbon Dioxide 19.0 L BUN 45 H Creatinine 1.9 H Glucose 107 H Calcium 9.7 Liver Function 06/22/24 Range/Units 09:30 Total Bilirubin 0.5 (0.3-1.2) mg/dL AST 25 (0-34) U/L ALT 22 (10-49) U/L Alkaline Phosphatase 153 H (46-116) U/L Albumin 4.7 (3.4-4.8) gm/dL Urine 02/27/25 Range/Units 09:55 Urine Color Yellow (Lt Yel-Yel) Urine Clarity Clear (Clear/Hazy) Urine pH 5.0 (5.0-7.0) Ur Specific [place] 1.017 (1.001-1.035) Urine Protein Negative (Neg - Trace) Urine Glucose (UA) Negative (Negative) ABG Interpretation ABG results: 06/22/24 09:30 VBG pH 7.31 L VBG pCO2 38 VBG pO2 36 VBG Base Excess -7 L Quality Measures Quality Measures none Medications Home Medications and Allergies Home Medications ?Medication ?Instructions ?Recorded ?Confirmed ?Type latanoprost 0.005 % eye drops 1 drp ophthalmic (eye) Q PM 03/09/18 08/02/18 History timolol maleate 0.5 % eye drops 1 drp ophthalmic (eye) BID 03/09/18 08/02/18 History Allergies Allergy/AdvReac Type Severity Reaction Status Date / Time No Known Allergies Allergy Verified 06/22/24 08:48 Visit Medications Acetaminophen (Acetaminophen 325 Mg Tablet) 650 mg PO Q6H PRN PRN Reason: pain and Fever >100.4 Stop: 07/22/24 14:44 Hydrocodone Bitart/Acetaminophen (Hydrocodone/Apap 5/325 Tablet) 1 tab PO Q4HR PRN PRN Reason: PAIN SCALE 4-10(Mod-Sev Stop: 06/27/24 14:44 Sodium Chloride (Ns) 1,000 mls @ 100 mls/hr IV .Q10H [facility] Stop: 07/22/24 09:14 Last Admin: 06/22/24 09:49 Dose: 100 mls/hr Ondansetron HCl (Ondansetron Inj 2 Mg/Ml Inj 2 Ml) 4 mg IV Q6H PRN; Protocol PRN Reason: NAUSEA OR VOMITING Stop: 07/22/24 14:44 Pantoprazole Sodium (Pantoprazole 40 Mg Tablet) 40 mg PO QDAY [facility] Stop: 07/22/24 14:59 Polyethylene Glycol/Electrolytes (Na Barone/Nahco3/Levy/Peg (Golytely) 4,000 Ml Btl) 4,000 ml PO X1 ONE Stop: 06/22/24 14:46 Discontinued Medications Sodium Chloride (Ns) 1,000 mls @ 999 mls/hr IV .Q1H1M ONE Stop: 06/22/24 10:06 Last Admin: 06/22/24 09:48 Dose: 999 mls/hr Assessment & Plan Plan 64-year-old male with past medical history of hypertension, hyperlipidemia, glaucoma, and active smoker was admitted to the hospital on 06/22/2024 for intractable diarrhea and further GI workup due to concern for malignancy. #Intractable diarrhea #Rectal pain #Thickened rectal wall #Concern for malignancy #Active smoker ?Patient came in with complaints of diarrhea for the past 2 months along with on and off rectal pain ? Patient has never had a colonoscopy before ? Patient is an active smoker therefore has increased risk for malignancy ? Abdomen/pelvis CT on 06/15/2024 that showed rectal wall thickening ? On digital rectal exam patient was noticed to have nodular texture Plan: ? Started GoLytely ? CEA ordered ? Clear liquid diets -Nicotine patch ? GI consulted, appreciate recommendations ? Will continue to monitor #SIRS 2 out of 4 #Tachycardia #Leukocytosis ? Patient came in with leukocytes of 20.3 and tachycardia for heart rate 122 ? This is most likely reactive in the setting of possible malignancy ? Patient not have any fevers and there is very low suspicion for active pneumonia at this time. ?Lactic acid was within normal limits Plan: ? Will continue to monitor and decide if patient may need antibiotics. #Electrolyte imbalance #Hyponatremia #Hypokalemia ? Patient is sodium was 131 and potassium was 3.1 on admission ?Most likely in the setting of GI loss Plan: ? potassium 40 mEq x 1 ?IV fluids were given by the ER ? Will replete as necessary #High anion gap metabolic acidosis ? Anion gap 15 and bicarb 19 ? Could be due to uremia vs RTA Plan: ? Will continue monitor for now #Bacteriuria ? UA was positive for bacteria ? Patient does not have any urinary symptoms therefore will not require treatment at this time Disposition: Patient admitted [facility] for possible malignancy of colon, continue clear liquid and golytely for colonoscopy Diet: clear liquid GI prophylaxis: protonix DVT prophylaxis: SCDs Code:Full Case disclosed with Attending Dr. Sharif and My senior Dr. Lee PGY3. Ambrose Sanford PGY1
[2024-06-22] MEDS: PANTOPRAZOLE 40 MG TABLET PO (15:19)
[2024-06-22] MEDS: POTASSIUM CHLORIDE 20 mEq TABCR 40 MEQ PO (15:19)
--- NOTE | 2024-06-22 15:46 | PC.CC ---
Patient is a 64 year-old male who presents to the hospital for intractable diarrhea. Lenka BETANCOURT made [id number] contact with patient. ASW introduced self, role, and reason for visit. Patient appeared alert and oriented to self, location, and situation. Patient was pleasant and engaged in initial assessment. Patient reports he lives home alone. Patient reports his mother Jessica has and no longer has a next of kin as he has no family or friends. Patient reports he is legally blind and has been having a difficult time ambulating as he has been weak. In addition, patient has been having difficulty completing his ADLs as he has generalized weakness. Patient receives primary care at [facility] in [facility]. Upond discharge patient would like to go to a SNF as he is not able to care for himself. administrative services assistant to follow up with any discharge needs.
[2024-06-22] MEDS: NICOTINE PATCH 14 MG/24 HR PATCH.TD24 TOP (16:20)
[2024-06-22 16:52] LABS: Carcinoembryonic Antigen 156.4 ng/mL (0.0-5.0)
[2024-06-22] MEDS: NA SU/NAHCO3/KC/PEG (Golytely) 4,000 ML BTL 4000 ML PO (18:30)
[2024-06-22] MEDS: HYDROcodone/APAP 5/325 TABLET 1 TAB PO (20:08)
--- NOTE | 2024-06-22 22:46 | PD.IMCONS ---
HPI Data of Consult Requesting Physician: Mark Sharif MD Primary Care Provider: Physician No Primary/Family Consult Narrative Reason for consult: Diarrhea abnormal CTAP History of present illness: 64 years old male was sent by the primary care physician from [facility] for abnormal CT scan of the abdomen pelvis which showed rectal wall thickening as well patient's chronic persistent diarrhea for the last 2 months On my history patient has about 10-15 stools a day loose yellowish stools but no blood On chest x-ray patient also has bibasilar bronchopneumonia He also smokes Patient never had a colonoscopy Patient does have a history of essential hypertension hyperlipidemia glaucoma cc:: cc: Mark Sharif MD Review of Systems Review of Systems Systems Reviewed: All systems reviewed, normal except as documented Past Medical History Surgical History OTHER SURGICAL HX: As in the history of present illness Meds Home Medications and Allergies Home Medications ?Medication ?Instructions ?Recorded ?Confirmed ?Type latanoprost 0.005 % eye drops 1 drp ophthalmic (eye) QPM 03/09/18 08/02/18 History timolol maleate 0.5 % eye drops 1 drp ophthalmic (eye) BID 03/09/18 08/02/18 History Allergies Allergy/AdvReac Type Severity Reaction Status Date / Time No Known Allergies Allergy Verified 06/22/24 08:48 Exam Vital Signs Temp Pulse Resp BP Pulse Ox O2 Del Method 98.0 F 76 16 124/62 99 Room Air 06/22/24 18:26 06/22/24 18:26 06/22/24 18:26 06/22/24 18:26 06/22/24 18:26 06/22/24 18:26 Constitutional Comments: Alert oriented Routine Respiratory Exam Comments: Normal to auscultation Routine Abdominal Exam Comments: Soft nontender positive bowel sounds Results Labs 06/22/24 09:30 06/22/24 09:30 Labs: Short CBC 06/22/24 Range/Units 09:30 WBC 20.3 H (3.8-10.6) Thou/mm3 Hgb 13.4 L (13.5-16.0) g/dL Hct 37.9 L (41.0-53.0) % Plt Count 432 D (140-440) Thou/mm3 BMP 06/22/24 09:30 Sodium 131 L Potassium 3.1 L Chloride 97 L Carbon Dioxide 19.0 L BUN 45 H Creatinine 1.9 H Glucose 107 H Calcium 9.7 Liver Function 06/22/24 Range/Units 09:30 Total Bilirubin 0.5 (0.3-1.2) mg/dL AST 25 (0-34) U/L ALT 22 (10-49) U/L Alkaline Phosphatase 153 H (46-116) U/L Albumin 4.7 (3.4-4.8) gm/dL Urine 06/22/24 Range/Units 09:55 Urine Color Yellow (Lt Yel-Yel) Urine Clarity Clear (Clear/Hazy) Urine pH 5.0 (5.0-7.0) Ur Specific [place] 1.017 (1.001-1.035) Urine Protein Negative (Neg - Trace) Urine Glucose (UA) Negative (Negative) ABG Interpretation ABG results: 06/22/24 09:30 VBG pH 7.31 L VBG pCO2 38 VBG pO2 36 VBG Base Excess -7 L Assessment and Plan Additional Assessment & Plan Additional Plan: Chronic persistent diarrhea with abnormal CT scan of the abdomen pelvis showing thickening of the rectal wall Plan Complete diarrhea panel including culture and sensitivity Gram stain Giardia antigen and stool for C. difficile by PCR GoLytely prep Consent obtained for fiberoptic colonoscopy with possible biopsy possible therapeutic intervention under intravenous moderate sedation Will follow the patient Other medical problems include Essential hypertension Hyperlipidemia Glaucoma Thank you very much for the opportunity to participate in the care of this patient
[2024-06-23] VITALS (24 sets, daily range): BP systolic 87–141; BP diastolic 51–93; PULSE 51–79; RESP 7–99; TEMP 36.1–36.6; O2SAT 94–100
[2024-06-23 00:53] LABS: Stool for WBCs 3+ (Negative)
[2024-06-23 06:58] LABS: Basophils % (Auto) 0 % (0-2.5); Eosinophils # (Auto) 0.1 Thou/mm3 (0.0-0.5); Eosinophils % (Auto) 1 % (0-10); Hematocrit 36.1 % (41.0-53.0); Hemoglobin 12.4 g/dL (13.5-16.0); Immature Granulocytes % (Auto) 1 % (0-0); Immature Granulocytes Auto 0.13 Thou/mm3 (0.00-0.00); Lymphocytes # (Auto) 1.9 Thou/mm3 (1.0-4.8); Lymphocytes % (Auto) 14 % (10-50); Mean Corpuscular HGB Conc 34.3 g/dl (31.0-37.0); Mean Corpuscular Hemoglobin 31.9 pg (25.0-35.0); Mean Corpuscular Volume 93 fL (80-100); Monocytes # (Auto) 0.7 Thou/mm3 (0.0-0.8); Monocytes % (Auto) 5 % (0-12); Neutrophils # (Auto) 10.8 Thou/mm3 (1.8-7.7); Neutrophils % (Auto) 79 % (37-80); Nucleated Red Blood Cell % 0 /100 WBC (0); Platelet Count 412 Thou/mm3 (140-440); RDW Standard Deviation 46.4 fL (35.1-43.9); Red Blood Count 3.89 Miln/mm3 (4.50-5.90); White Blood Count 13.8 Thou/mm3 (3.8-10.6)
[2024-06-23 07:28] LABS: Alanine Aminotransferase 20 U/L (10-49); Albumin, Serum 4.3 gm/dL (3.4-4.8); Albumin/Globulin Ratio 1.7 (1.2-2.2); Alkaline Phosphatase 139 U/L (46-116); Anion Gap 12 (7-16); Aspartate Amino Transferase 25 U/L (0-34); BUN/Creatinine Ratio 29 Ratio (12-20); Bilirubin,Total 0.5 mg/dL (0.3-1.2); Blood Urea Nitrogen 26 mg/dL (9-23); C-Reactive Protein < 0.4 mg/dL (0.0-0.9); Calcium 9.4 mg/dL (8.3-10.6); Calcium (Corrected) 9.4 mg/dL (8.5-10.1); Carbon Dioxide 20.6 mMol/L (20.0-31.0); Chloride 105 mMol/L (98-107); Cholesterol 90 mg/dL (132-200); Creatinine (Component) 0.9 mg/dL (0.6-1.3); Estimated Creatinine Clearance 66.7 mL/min (>60); Globulin 2.5 gm/dL (2.3-3.5); Glucose 80 mg/dL (74-106); HDL Cholesterol 30 mg/dL (40-60); LDL Cholesterol,Calculated 44 mg/dL (0-130); Magnesium 1.9 mg/dL (1.6-2.6); Osmolality,Calculated 279 (275-295); Potassium 3.4 mMol/L (3.4-5.1); Sodium 138 mMol/L (136-145); Thyroid Stimulating Hormone 4.95 uIU/mL (0.55-4.78); Total Protein 6.8 gm/dL (5.7-8.2); Triglycerides 82 mg/dL (30-150); eGFR > 60 See Note
[2024-06-23 07:47] LABS: Glucose Estimated Average 126 mg/dL (80-131)
[2024-06-23 09:00] LABS: Free T4 (Free Thyroxine) 1.28 ng/dL (0.89-1.76)
[2024-06-23] MEDS: SODIUM CHLORIDE 0.9% 1000 ML 1,000 ML 100 ML IV (09:10)
[2024-06-23] MEDS: PANTOPRAZOLE 40 MG TABLET PO (09:10)
[2024-06-23 09:48] LABS: Clostridium Difficile PCR Negative (Negative)
--- NOTE | 2024-06-23 09:56 | ESPR_ITS ---
<Statement entered by Mark Sharif MD - 06/25/24 13:24> I reviewed above note and agree with findings and plans. I have also personally examined the patient with medicine team and went over assessment and plan with medical team including email marketing intern and resident physician. Documentation for date of: 06/23/24 Subjective Subjective Interval history: Patient is seen at bedside this morning. No overnight events. GI specialist ordered some stool studies and will do colonoscopy likely today if patient is clear. Patient's hemoglobin stable and WBCs are downtrending. Patient CEA was elevated at 156.4 and TSH was also elevated at 4.95, but free T4 WNL. Patient has no other complaint at this time. Exam Vital Signs Temp Pulse Resp BP Pulse Ox O2 Del Method 97.0 F 71 18 141/85 H 100 Room Air 06/23/24 07:42 06/23/24 07:42 06/23/24 07:42 06/23/24 07:42 06/23/24 07:42 06/23/24 07:42 Narrative Exam General: A/O x3, no acute distress Eyes: R Eye deviation from prior surgery, R eye loss of vision, L eye vision grossly intact. Ears: No ear pain, no ear discharge, Hearing grossly intact. Nose: No nasal discharge. Mouth/Throat: Moist mucous membranes, no redness, no lesions. Neck: Neck supple, non-tender, no cervical lymphadenopathy. Lungs: Mild wheezing still present, No accessory muscle use. Cardio: Normal S1/S2, regular rhythm, no murmurs, no JVD Abdomen: Soft, non-tender, no palpable masses, peristalsis present, no guarding or rebound. Extremities: Symmetrical, no significant deformities, no peripheral edema , non-tender, peripheral pulses presents. Rectal: Nodular texture Skin: No rashes, no lesions, warm to touch. Molting in DONNELL UE with cyanosis in DONNELL hands and feet noted again. Neuro: No focal neurological deficits. motor and sensory intact Psych: Cooperative, appropriate mood and effect. Objective Labs 06/23/24 05:50 06/23/24 05:50 Labs: Laboratory Results - last 24 hr 06/22/24 06/22/24 06/22/24 09:30 09:55 10:16 WBC RBC Hgb Hct MCV MCH MCHC RDW Std Deviation Plt Count Neut % (Auto) Lymph % (Auto) [place] % (Auto) Eos % (Auto) Baso % (Auto) Neut # (Auto) Lymph # (Auto) [place] # (Auto) Eos # (Auto) Baso # (Auto) Immature Gran # (Auto) Absolute Nucleated RBC Immature Gran % Nucleated RBC % PT 11.0 INR 1.0 VBG pH 7.31 L VBG pCO2 38 VBG pO2 36 VBG O2 Sat (Cas) 66 L VBG Base Excess -7 L Sodium 131 L Potassium 3.1 L Chloride 97 L Carbon Dioxide 19.0 L Anion Gap 15 BUN 45 H Creatinine 1.9 H Estim Creat Clear Calc Not Performed. eGFR 39 L BUN/Creatinine Ratio 24 H Glucose [address] Glu mg/dL Hemoglobin A1c Calculated Osmolality 274 L Lactic Acid 1.9 Calcium 9.7 Corrected Calcium 9.7 Magnesium Total Bilirubin 0.5 AST 25 ALT 22 Alkaline Phosphatase 153 H C-Reactive Prot, Quant Total Protein 7.5 Albumin 4.7 Globulin 2.8 Albumin/Globulin Ratio 1.7 Triglycerides Cholesterol LDL Cholesterol, Calc HDL Cholesterol Cholesterol/HDL Ratio Lipase 38 Carcinoembryonic Ag TSH Free T4 Ur Collection Type Catheter Urine Color Yellow Urine Clarity Clear Urine pH 5.0 Ur Specific [place] 1.017 Urine Protein Negative Urine Glucose (UA) Negative Urine Ketones Negative Urine Blood Negative Urine Nitrite Negative Urine Bilirubin Negative Urine Urobilinogen (Auto) Negative Ur Leukocyte Esterase Negative Urine RBC < 1 Urine WBC 1 Ur Squamous Epith Cells 0 Urine Bacteria Rare Hyaline Casts 2 H Ur Culture Indicated? Not Indicated Stool for White Cells Stl C. diff Tox B Gene Blood Type O Positive Antibody Screen NEGATIVE Blood Bank Wristband ID Yes 06/22/24 06/22/24 06/23/24 15:55 23:38 05:50 WBC 13.8 H D RBC 3.89 L Hgb 12.4 L Hct 36.1 L MCV 93 MCH 31.9 MCHC 34.3 RDW Std Deviation 46.4 H Plt Count 412 Neut % (Auto) 79 Lymph % (Auto) 14 [place] % (Auto) 5 Eos % (Auto) 1 Baso % (Auto) 0 Neut # (Auto) 10.8 H Lymph # (Auto) 1.9 [place] # (Auto) 0.7 Eos # (Auto) 0.1 Baso # (Auto) 0.0 Immature Gran # (Auto) 0.13 H Absolute Nucleated RBC 0.00 Immature Gran % 1 H Nucleated RBC % 0 PT INR VBG pH VBG pCO2 VBG pO2 VBG O2 Sat (Cas) VBG Base Excess Sodium 138 Potassium 3.4 Chloride 105 Carbon Dioxide 20.6 Anion Gap 12 BUN 26 H Creatinine 0.9 D Estim Creat Clear Calc 66.7 eGFR > 60 BUN/Creatinine Ratio [address] Glucose [address] Glu mg/dL 126 Hemoglobin A1c 6.0 Calculated Osmolality 279 Lactic Acid Calcium 9.4 Corrected Calcium 9.4 Magnesium 1.9 Total Bilirubin 0.5 AST 25 ALT 20 Alkaline Phosphatase 139 H C-Reactive Prot, Quant < 0.4 Total Protein 6.8 Albumin 4.3 Globulin 2.5 Albumin/Globulin Ratio 1.7 Triglycerides 82 Cholesterol 90 L LDL Cholesterol, Calc 44 HDL Cholesterol 30 L Cholesterol/HDL Ratio 3.0 L Lipase Carcinoembryonic Ag 156.4 H TSH 4.95 H Free T4 1.28 Ur Collection Type Urine Color Urine Clarity Urine pH Ur Specific [place] Urine Protein Urine Glucose (UA) Urine Ketones Urine Blood Urine Nitrite Urine Bilirubin Urine Urobilinogen (Auto) Ur Leukocyte Esterase Urine RBC Urine WBC Ur Squamous Epith Cells Urine Bacteria Hyaline Casts Ur Culture Indicated? Stool for White Cells 3+ A Stl C. diff Tox B Gene Negative Blood Type Antibody Screen Blood Bank Wristband ID ABG Interpretation ABG results: 06/22/24 09:30 VBG pH 7.31 L VBG pCO2 38 VBG pO2 36 VBG Base Excess -7 L Quality Measures Quality Measures none Assessment & Plan Assessment Current Active Medications: Generic Name Dose Route Start Last Admin Trade Name Yairq PRN Reason Stop Dose Admin Acetaminophen 650 mg 06/22/24 14:45 Acetaminophen 325 Mg Tablet PO 07/22/24 14:44 Q6H PRN pain and Fever >100.4 Hydrocodone Bitart/Acetaminophen 1 tab 06/22/24 14:45 06/22/24 20:08 Hydrocodone/Apap 5/325 Tablet PO 06/27/24 14:44 1 tab Q4HR PRN Administration PAIN SCALE 4-10(Mod-Sev Albuterol/Ipratropium 3 ml 06/23/24 08:24 Albuterol/Ipratropium (Duoneb) Rt Mamta 3 Ml Nebu INH 07/23/24 08:23 Q2HR PRN SHORTNESS OF BREATH OR WHEEZE Sodium Chloride 1,000 mls @ 100 mls/hr 02/27/25 09:15 06/23/24 09:10 Ns IV 07/22/24 09:14 100 mls/hr .Q10H ERINN Administration Ondansetron HCl 4 mg 06/22/24 14:45 Ondansetron Inj 2 Mg/Ml Inj 2 Ml IV 07/22/24 14:44 Q6H PRN NAUSEA OR VOMITING Protocol Pantoprazole Sodium 40 mg 06/22/24 15:00 06/23/24 09:10 Pantoprazole 40 Mg Tablet PO 07/22/24 14:59 40 mg QDAY ERINN Administration Plan 64-year-old male with past medical history of hypertension, hyperlipidemia, glaucoma, and active smoker was admitted to the hospital on 06/22/2024 for intractable diarrhea and further GI workup due to concern for malignancy. #Intractable diarrhea #Rectal pain #Thickened rectal wall #Concern for malignancy #Active smoker ?Patient came in with complaints of diarrhea for the past 2 months along with on and off rectal pain ? Patient has never had a colonoscopy before ? Patient is an active smoker therefore has increased risk for malignancy ? Abdomen/pelvis CT on 06/15/2024 that showed rectal wall thickening ? On digital rectal exam patient was noticed to have nodular texture ? CEA 156.4 Plan: ? Clear liquid diets - Duonebs as needed -Nicotine patch qday -Stool studies pending including C. Diff ? GI consulted, appreciate recommendations ? Will continue to monitor #SIRS 2 out of 4 #Tachycardia, resolved #Leukocytosis, improving ? Patient came in with leukocytes of 20.3 and tachycardia for heart rate 122 ? This is most likely reactive in the setting of possible malignancy ? Patient not have any fevers and there is very low suspicion for active pneumonia at this time. ?Lactic acid was within normal limits Plan: ? Will continue to monitor and decide if patient may need antibiotics. #Bacteriuria ? UA was positive for bacteria ? Patient does not have any urinary symptoms therefore will not require treatment at this time #Electrolyte imbalance #Hyponatremia, resolved #Hypokalemia, resolved #High anion gap metabolic acidosis, resolved Disposition: Pending colonoscopy, F/U on stool studies Diet: clear liquid GI prophylaxis: protonix DVT prophylaxis: SCDs Code:Full Case disclosed with Attending Dr. Chante Sanford PGY1
[2024-06-23] MEDS: NICOTINE PATCH 14 MG/24 HR PATCH.TD24 TOP (10:18)
--- NOTE | 2024-06-23 11:00 | PC.SS ---
SS met pt at bedside to provide choices of SNF: [facility], [facility], and [facility] accepted. [facility] and [facility] are considering. Per pt he would like to go to [facility]. SS updated Katja who stated rthey can accept him on Wednesday when his 3 midnights are up.
[2024-06-23] MEDS: HYDROcodone/APAP 5/325 TABLET 1 TAB PO (11:29)
[2024-06-23 12:09] LABS: Sed Rate (ESR) 22 mm/hr (0-20)
--- NOTE | 2024-06-23 13:19 | PC.SS ---
PASRR completed and downloaded, pt meets LVL 1.
--- NOTE | 2024-06-23 14:52 | PC.SS ---
RAMY received a call from TOMASZ Grace in regards to pt request for SS. SS went to meet pt at bedside with RN Student David, pt expressed concern with paying his rent. SS contacted Katja at [facility] to inquire if they would be able to accomadate helping him get to bank and pay rent by the . Per Katja they will make sure he gets his rent paid by the . SS updated pt, he expressed gratitude. SS informed him his 3 Midnights will be up Wednesday so he can DC to his choice of [facility] as long as medically clear Wednesday the .
--- NOTE | 2024-06-23 19:32 | SUR.PHASEI ---
1919: report received from OR via [facility]. report received from TOMASZ Martin. pt sleepy but arousable when called his name. no s/s of pain or discomfort. no s/s of resp. distress or discomfort.
--- NOTE | 2024-06-23 19:53 | SUR.PHASEI ---
report given to TOMASZ Thurman
--- NOTE | 2024-06-23 20:22 | SUR.PHASEI ---
1954: pt transferred back to room via [facility]. pt alert and oriented x3. no s/s of pain or discomfort. no s/s of resp. distress or discomfort.
[2024-06-23] MEDS: ATORVASTATIN CALCIUM 20 MG TABLET 40 MG PO (21:45)
[2024-06-24] VITALS (8 sets, daily range): BP systolic 97–123; BP diastolic 54–68; PULSE 58–76; RESP 17–97; TEMP 36.1–37; O2SAT 95–98; BMI 20.9
[2024-06-24] MEDS: SODIUM CHLORIDE 0.9% 1000 ML 1,000 ML 100 ML IV (01:05)
[2024-06-24 05:20] LABS: Basophils # (Auto) 0.1 Thou/mm3 (0.0-0.2); Basophils % (Auto) 0 % (0-2.5); Eosinophils # (Auto) 0.1 Thou/mm3 (0.0-0.5); Eosinophils % (Auto) 1 % (0-10); Hematocrit 31.5 % (41.0-53.0); Hemoglobin 10.6 g/dL (13.5-16.0); Immature Granulocytes % (Auto) 1 % (0-0); Immature Granulocytes Auto 0.12 Thou/mm3 (0.00-0.00); Lymphocytes % (Auto) 14 % (10-50); Mean Corpuscular HGB Conc 33.7 g/dl (31.0-37.0); Mean Corpuscular Hemoglobin 31.2 pg (25.0-35.0); Mean Corpuscular Volume 93 fL (80-100); Monocytes # (Auto) 0.8 Thou/mm3 (0.0-0.8); Monocytes % (Auto) 6 % (0-12); Neutrophils # (Auto) 11.1 Thou/mm3 (1.8-7.7); Neutrophils % (Auto) 78 % (37-80); Nucleated Red Blood Cell % 0 /100 WBC (0); Platelet Count 313 Thou/mm3 (140-440); RDW Standard Deviation 46.9 fL (35.1-43.9); White Blood Count 14.3 Thou/mm3 (3.8-10.6)
[2024-06-24] MEDS: HYDROcodone/APAP 5/325 TABLET 1 TAB PO ×2 (05:29→16:45)
[2024-06-24 06:28] LABS: Alanine Aminotransferase 14 U/L (10-49); Albumin, Serum 3.2 gm/dL (3.4-4.8); Albumin/Globulin Ratio 1.6 (1.2-2.2); Alkaline Phosphatase 105 U/L (46-116); Anion Gap 10 (7-16); Aspartate Amino Transferase 19 U/L (0-34); BUN/Creatinine Ratio 15 Ratio (12-20); Bilirubin,Total 0.4 mg/dL (0.3-1.2); Blood Urea Nitrogen 12 mg/dL (9-23); Calcium 8.5 mg/dL (8.3-10.6); Calcium (Corrected) 9.1 mg/dL (8.5-10.1); Carbon Dioxide 21.2 mMol/L (20.0-31.0); Chloride 112 mMol/L (98-107); Creatinine (Component) 0.8 mg/dL (0.6-1.3); Estimated Creatinine Clearance 75.1 mL/min (>60); Glucose 72 mg/dL (74-106); Magnesium 1.7 mg/dL (1.6-2.6); Osmolality,Calculated 283 (275-295); Potassium 3.4 mMol/L (3.4-5.1); Sodium 143 mMol/L (136-145); Total Protein 5.2 gm/dL (5.7-8.2); eGFR > 60 See Note
--- NOTE | 2024-06-24 08:07 | PC.NURSE ---
Md been notified for the pt. BP of 91/57 first reading anbd the second reading 97/58 with the HR 57. Pt. seems comfortable and eatinmg breakfast at this time. No new orders yet. will continue monitor pt.
--- NOTE | 2024-06-24 08:08 | EKG_ITS ---
[facility] Test Date: 2024-06-24 Pat Name: LILIAN NARAYAN [facility] Gender[facility] Educational Coordinator: GLEN : 1960 Requested By: Daniel Mcgowan Order Number: [id number] Reading MD: Daniel Mcgowan Measurements Intervals [place] Rate: 66 P: 74 ND: 138 QRS: 5 QRSD: 96 T: 22 QT: 393 QTc: 414 Interpretive Statements SINUS RHYTHM No previous ECG available for comparison /store/S0/[id number]/[id number]
[2024-06-24] MEDS: POTASSIUM CHLORIDE 20 mEq TABCR 40 MEQ PO (09:06)
[2024-06-24] MEDS: PANTOPRAZOLE 40 MG TABLET PO (09:06)
[2024-06-24] MEDS: NICOTINE PATCH 14 MG/24 HR PATCH.TD24 TOP (09:06)
[2024-06-24 11:51] LABS: Lactate (Lactic Acid) 1.7 mMol/L (0.4-2.0)
[2024-06-24] MEDS: SODIUM CHLORIDE 0.9% 1000 ML 1,000 ML 150 ML IV ×2 (11:52→18:26)
--- NOTE | 2024-06-24 11:54 | ESPR_ITS ---
<Statement entered by Mark Sharif MD - 06/29/24 04:06> I reviewed above note and agree with findings and plans. I have also personally examined the patient with medicine team and went over assessment and plan with medical team including regulatory intern and resident physician. <Statement entered by Delvis Bunn MD - 06/24/24 15:13> Patient was seen and examined at the bedside. Patient was mildly hypotensive and bradycardic. EKG showed sinus bradycardia. Fluid rate was increased. Colonoscopy showed rectal mass. Oncology, Dr. Adam has been consulted for further recommendations. Electrolytes were repleted. Will continue with current management. Anticipating discharge tomorrow. All labs and orders were reviewed. I saw and examined the patient, and I agree with current management stated by Dr Juan M MD,PGY1. Plan of care was discussed with the attending physician and resident physician. Disclaimer: Despite multiple revisions, due to the dictation software being used, the document bellow may not be free of grammatical errors including phonetic/typographic errors. However, this does not deter from our commitment to providing health care in the patient's best interest in mind. Dr. Gómez MD, PGY 2 Documentation for date of: 06/24/24 Subjective Subjective Interval history: Yoshi Holcomb 64-y/o M PMHx HTN, HLD, glaucoma admitted on 06/22 for rectal wall thickening seen on CT on 06/15. Diarrhea for 2 months without blood with associated rectal pain on and off. 06/24: Seen and examined on medical floors. No acute overnight events reported. Underwent colonoscopy on 06/23 that showed 1 cm rectal mass at anal verge that was biopsied. 1 polyp in transverse colon and 1 polyp in descending colon that were both resected. Polyp in ascending colon to be resected by EMR. Also noted to have mucosal ulceration and proximal descending colon that was biopsied. Otherwise, GI recommends to follow-up outpatient and to consult oncology. Spoke to patient regarding colonoscopy findings and understands current plans. Noted to be hypotensive and will monitor for more day. Started regular diet, increase IVF from 100 to 150 cc/h, and home eyedrops discontinued. Exam Vital Signs Temp Pulse Resp BP Pulse Ox O2 Del Method O2 Flow Rate 97.5 F 58 L 19 97/58 L 95 Room Air 3 06/24/24 08:00 06/24/24 08:00 06/24/24 08:00 06/24/24 08:00 06/24/24 08:00 06/24/24 08:00 06/23/24 19:05 Narrative Exam General: AOx3, no acute distress, able to speak full sentences HEENT: NC/AT, mucous membranes moist, bilateral sclera anicteric Cardiovascular: regular rate and rhythm, S1/S2 present, no murmurs appreciated Pulmonary: clear to auscultation bilaterally, no rales/rhonchi/wheezes Abdominal: soft, non-tender, non-distended, no rebound/guarding, normal bowel sounds present Musculoskeletal: normal ROM, no peripheral edema Skin: warm and dry, intact, no rashes Neuro: CN II-XII intact, no focal deficits Objective Labs 06/24/24 11:40 06/24/24 04:54 Labs: Laboratory Results - last 24 hr 06/23/24 06/24/24 05:50 04:54 WBC 14.3 H RBC 3.40 L Hgb 10.6 L Hct 31.5 L MCV 93 MCH 31.2 MCHC 33.7 RDW Std Deviation 46.9 H Plt Count 313 D Neut % (Auto) 78 Lymph % (Auto) 14 [place] % (Auto) 6 Eos % (Auto) 1 Baso % (Auto) 0 Neut # (Auto) 11.1 H Lymph # (Auto) 2.0 [place] # (Auto) 0.8 Eos # (Auto) 0.1 Baso # (Auto) 0.1 Immature Gran # (Auto) 0.12 H Absolute Nucleated RBC 0.00 Immature Gran % 1 H Nucleated RBC % 0 ESR 22 H Sodium 143 Potassium 3.4 Chloride 112 H Carbon Dioxide 21.2 Anion Gap 10 BUN 12 Creatinine 0.8 Estim Creat Clear Calc 75.1 eGFR > 60 BUN/Creatinine Ratio 15 Glucose 72 L Calculated Osmolality 283 Calcium 8.5 Corrected Calcium 9.1 Magnesium 1.7 Total Bilirubin 0.4 AST 19 ALT 14 Alkaline Phosphatase 105 D Total Protein 5.2 L Albumin 3.2 L D Globulin 2.0 L Albumin/Globulin Ratio 1.6 ABG Interpretation ABG results: 06/22/24 09:30 VBG pH 7.31 L VBG pCO2 38 VBG pO2 36 VBG Base Excess -7 L Quality Measures Quality Measures none Assessment & Plan Assessment Current Active Medications: Generic Name Dose Route Start Last Admin Trade Name Freq PRN Reason Stop Dose Admin Acetaminophen 650 mg 06/22/24 14:45 Acetaminophen 325 Mg Tablet PO 07/22/24 14:44 Q6H PRN pain and Fever >100.4 Protocol Hydrocodone Bitart/Acetaminophen 1 tab 06/22/24 14:45 06/24/24 05:29 Hydrocodone/Apap 5/325 Tablet PO 06/27/24 14:44 1 tab Q4HR PRN Administration PAIN SCALE 4-10(Mod-Sev Albuterol/Ipratropium 3 ml 06/23/24 08:24 Albuterol/Ipratropium (Duoneb) Rt Mamta 3 Ml Nebu INH 07/23/24 08:23 Q2HR PRN SHORTNESS OF BREATH OR WHEEZE Atorvastatin Calcium 40 mg 06/23/24 21:00 06/23/24 21:45 Atorvastatin Calcium 20 Mg Tablet PO 07/23/24 20:59 40 mg HS ERINN Administration Sodium Chloride 1,000 mls @ 150 mls/hr 06/24/24 11:00 06/24/24 11:52 Ns IV 07/24/24 10:59 150 mls/hr .Q6H40M ERINN Administration Nicotine 14 mg 06/23/24 10:15 06/24/24 09:06 Nicotine Patch 14 Mg/24 Hr Patch.Td24 TOP 07/23/24 10:14 14 mg QDAY ERINN Administration Ondansetron HCl 4 mg 06/22/24 14:45 Ondansetron Inj 2 Mg/Ml Inj 2 Ml IV 07/22/24 14:44 Q6H PRN NAUSEA OR VOMITING Protocol Pantoprazole Sodium 40 mg 06/22/24 15:00 06/24/24 09:06 Pantoprazole 40 Mg Tablet PO 07/22/24 14:59 40 mg QDAY ERINN Administration Plan Yoshi [employer] 64-y/o M PMHx HTN, HLD, glaucoma admitted on 06/22 for rectal wall thickening seen on CT on 06/15. Diarrhea for 2 months without blood with associated rectal pain on and off. #Intractable diarrhea #Rectal wall thickening seen on CT #Rectal mass, s/p biopsy Presents with diarrhea for 2 months with associated rectal pain. No previous colonoscopy. Current active smoker 1 pack/day. CT A/P on 02/20 showed rectal wall thickening. CEA elevated at 156.4. Colonoscopy 06/23: 1 cm rectal mass at anal verge. Mucosal ulceration in proximal descending colon (biopsied). 1 polyp in transverse colon, 1 polyp in descending colon, both resected. 1 polyp in ascending colon to be resected by EMR. ? GI consulted, appreciate recommendations ? Recommend follow-up outpatient ? Oncology consulted ? Clear liquid diet ? Stool studies: 3+ WBC, C. diff negative, giardia pending #Hypotension, asymptomatic #Bradycardia BP noted to be 90s/50s and heart rate in 50s. DC'd home eyedrops and increased IVF rate and will continue to monitor. Lactate WNL so perfusing well. ? NS at 150 mL/h ? Restarted regular diet ? DC home eye drops #Hyponatremia, resolved #Hypokalemia, resolved #Anion gap metabolic acidosis, resolved #Bacteriuria UA positive for bacteriuria but patient does not endorse symptoms and will not require treatment at this time. Hospital management: Disposition: monitor one more hospital night for hypotension and bradycardia Fluids: NS at 150 cc/hr Diet: regular diet Lines: PIV DVT prophylaxis: SCDs GI prophylaxis: pantoprazole CODE STATUS: full code ----- Plan discussed with attending physician Dr. Sharif and senior resident physician Dr. Gómez Mcgowan MD PGY-1 Internal Medicine
[2024-06-24 11:55] LABS: Basophils % (Auto) 0 % (0-2.5); Eosinophils # (Auto) 0.1 Thou/mm3 (0.0-0.5); Eosinophils % (Auto) 1 % (0-10); Hematocrit 31.7 % (41.0-53.0); Immature Granulocytes % (Auto) 1 % (0-0); Immature Granulocytes Auto 0.08 Thou/mm3 (0.00-0.00); Lymphocytes # (Auto) 2.1 Thou/mm3 (1.0-4.8); Lymphocytes % (Auto) 16 % (10-50); Mean Corpuscular HGB Conc 34.7 g/dl (31.0-37.0); Mean Corpuscular Hemoglobin 31.8 pg (25.0-35.0); Mean Corpuscular Volume 92 fL (80-100); Monocytes # (Auto) 0.7 Thou/mm3 (0.0-0.8); Monocytes % (Auto) 5 % (0-12); Neutrophils # (Auto) 10.4 Thou/mm3 (1.8-7.7); Neutrophils % (Auto) 78 % (37-80); Nucleated Red Blood Cell % 0 /100 WBC (0); Platelet Count 321 Thou/mm3 (140-440); RDW Standard Deviation 47.1 fL (35.1-43.9); Red Blood Count 3.46 Miln/mm3 (4.50-5.90); White Blood Count 13.4 Thou/mm3 (3.8-10.6)
[2024-06-24] MEDS: ATORVASTATIN CALCIUM 20 MG TABLET 40 MG PO (20:17)
--- NOTE | 2024-06-24 22:30 | ESPR_ITS ---
Documentation for date of: 06/24/24 Subjective Subjective Interval history: Patient evaluated Colonoscopy shows rectal mass which I believe is a carcinoma just below the anal verge it could be adenocarcinoma might as well be squamous cell carcinoma from the anus Histopathology will determine that I have generated a consult for Dr. Adam radiation oncologist Patient will definitely need preoperative radiation and chemotherapy As well as the mass in the right colon can be either endoscopically resected with EMR technology at a tertiary center or can have a and mass resection at the same time of colonoscopy Family is very much aware My discussion with them Patient's son works here and I have talked to him a lot Exam Vital Signs Temp Pulse Resp BP Pulse Ox O2 Del Method O2 Flow Rate 98.6 F 64 18 123/68 97 Room Air 3 06/24/24 20:00 06/24/24 21:34 06/24/24 21:34 06/24/24 20:00 06/24/24 21:34 06/24/24 20:00 06/23/24 19:05 Objective Labs 06/24/24 11:40 06/24/24 04:54 Labs: Laboratory Results - last 24 hr 06/24/24 06/24/24 04:54 11:40 WBC 14.3 H 13.4 H RBC 3.40 L 3.46 L Hgb 10.6 L 11.0 L Hct 31.5 L 31.7 L MCV 93 92 MCH 31.2 31.8 MCHC 33.7 34.7 RDW Std Deviation 46.9 H 47.1 H Plt Count 313 D 321 Neut % (Auto) 78 78 Lymph % (Auto) 14 16 [place] % (Auto) 6 5 Eos % (Auto) 1 1 Baso % (Auto) 0 0 Neut # (Auto) 11.1 H 10.4 H Lymph # (Auto) 2.0 2.1 [place] # (Auto) 0.8 0.7 Eos # (Auto) 0.1 0.1 Baso # (Auto) 0.1 0.0 Immature Gran # (Auto) 0.12 H 0.08 H Absolute Nucleated RBC 0.00 0.00 Immature Gran % 1 H 1 H Nucleated RBC % 0 0 Sodium 143 Potassium 3.4 Chloride 112 H Carbon Dioxide 21.2 Anion Gap 10 BUN 12 Creatinine 0.8 Estim Creat Clear Calc 75.1 eGFR > 60 BUN/Creatinine Ratio 15 Glucose 72 L Calculated Osmolality 283 Lactic Acid 1.7 Calcium 8.5 Corrected Calcium 9.1 Magnesium 1.7 Total Bilirubin 0.4 AST 19 ALT 14 Alkaline Phosphatase 105 D Total Protein 5.2 L Albumin 3.2 L D Globulin 2.0 L Albumin/Globulin Ratio 1.6 Impressions Impression: 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 Adam radiation oncologist to consult ABG Interpretation ABG results: 06/22/24 09:30 VBG pH 7.31 L VBG pCO2 38 VBG pO2 36 VBG Base Excess -7 L Assessment & Plan A&P Narrative Chronic persistent diarrhea with abnormal CT scan of the abdomen pelvis showing thickening of the rectal wall Plan Complete diarrhea panel including culture and sensitivity Gram stain Giardia antigen and stool for C. difficile by PCR GoLytely prep Consent obtained for fiberoptic colonoscopy with possible biopsy possible therapeutic intervention under intravenous moderate sedation Will follow the patient Other medical problems include Essential hypertension Hyperlipidemia Glaucoma Thank you very much for the opportunity to participate in the care of this patient Time Spent With Patient Time: Total time spent is greater than 50% in coordination of care (as documented) at patient's floor/unit and/or counseling patient:
[2024-06-25] VITALS (8 sets, daily range): BP systolic 112–149; BP diastolic 62–79; PULSE 61–91; RESP 16–97; TEMP 36.2–36.6; O2SAT 96–99
[2024-06-25] MEDS: SODIUM CHLORIDE 0.9% 1000 ML 1,000 ML 150 ML IV ×2 (00:57→08:02)
[2024-06-25] MEDS: HYDROcodone/APAP 5/325 TABLET 1 TAB PO ×3 (03:50→22:29)
[2024-06-25 05:41] LABS: Alanine Aminotransferase 12 U/L (10-49); Albumin, Serum 3.2 gm/dL (3.4-4.8); Albumin/Globulin Ratio 1.7 (1.2-2.2); Alkaline Phosphatase 104 U/L (46-116); Anion Gap 7 (7-16); Aspartate Amino Transferase 12 U/L (0-34); BUN/Creatinine Ratio 13 Ratio (12-20); Bilirubin,Total 0.2 mg/dL (0.3-1.2); Blood Urea Nitrogen 10 mg/dL (9-23); Calcium 8.1 mg/dL (8.3-10.6); Calcium (Corrected) 8.7 mg/dL (8.5-10.1); Carbon Dioxide 22.6 mMol/L (20.0-31.0); Chloride 113 mMol/L (98-107); Creatinine (Component) 0.8 mg/dL (0.6-1.3); Estimated Creatinine Clearance 75.1 mL/min (>60); Globulin 1.9 gm/dL (2.3-3.5); Glucose 93 mg/dL (74-106); Magnesium 1.3 mg/dL (1.6-2.6); Osmolality,Calculated 283 (275-295); Sodium 143 mMol/L (136-145); Total Protein 5.1 gm/dL (5.7-8.2); eGFR > 60 See Note
[2024-06-25 05:55] LABS: Basophils % (Auto) 0 % (0-2.5); Eosinophils # (Auto) 0.2 Thou/mm3 (0.0-0.5); Eosinophils % (Auto) 1 % (0-10); Hematocrit 31.8 % (41.0-53.0); Hemoglobin 10.6 g/dL (13.5-16.0); Immature Granulocytes % (Auto) 1 % (0-0); Immature Granulocytes Auto 0.07 Thou/mm3 (0.00-0.00); Lymphocytes # (Auto) 2.3 Thou/mm3 (1.0-4.8); Lymphocytes % (Auto) 18 % (10-50); Mean Corpuscular HGB Conc 33.3 g/dl (31.0-37.0); Mean Corpuscular Hemoglobin 31.9 pg (25.0-35.0); Mean Corpuscular Volume 96 fL (80-100); Monocytes # (Auto) 0.7 Thou/mm3 (0.0-0.8); Monocytes % (Auto) 6 % (0-12); Neutrophils # (Auto) 9.5 Thou/mm3 (1.8-7.7); Neutrophils % (Auto) 74 % (37-80); Nucleated Red Blood Cell % 0 /100 WBC (0); Platelet Count 320 Thou/mm3 (140-440); RDW Standard Deviation 49.8 fL (35.1-43.9); Red Blood Count 3.32 Miln/mm3 (4.50-5.90); White Blood Count 12.8 Thou/mm3 (3.8-10.6)
[2024-06-25] MEDS: NICOTINE PATCH 14 MG/24 HR PATCH.TD24 TOP (08:02)
[2024-06-25] MEDS: PANTOPRAZOLE 40 MG TABLET PO (08:03)
[2024-06-25] MEDS: Magnesium Sulfate 4 GM Ivpb 4 GM/50 ML BAG IV (09:08)
--- NOTE | 2024-06-25 09:40 | PD.RESDS ---
Planned Discharge Date 06/25/24 DS: Providers Provider Date of admission: 06/22/24 15:00 Primary care physician: Physician No Primary/Family Admitting Provider: Mark Sharif MD Attending Provider on Admission: Mark Sharif MD Consults: 06/22/24 14:51 Consult to Gastroenterology Routine Comment: Consulting Provider: Obdulia Aguirre 06/22/24 18:30 Health Equity Referral - Knowledge Deficit Routine Comment: Positive screening for knowledge deficit needs. [facility]ity Referral - Nutrition Routine Comment: Positive screening for nutrition needs. [facility]ity Referral - Transportation Routine Comment: Positive screening for transportation needs. [facility]ity Referral - Utilities Routine Comment: Positive screening for utility assistance needs. 06/24/24 07:43 Consult to Oncology Routine Comment: Consulting Provider: Jose Roberto Adam 06/24/24 22:43 Consult to Oncology Routine Comment: Consulting Provider: Jose Roberto Adam Attending Provider on DC: Yosef Ruelas MD Discharging Provider: Yosef Ruelas MD Hospital Course Hospital Course Hospital course: Patient evaluated Colonoscopy shows rectal mass which I believe is a carcinoma just below the anal verge it could be adenocarcinoma might as well be squamous cell carcinoma from the anus Histopathology will determine that I have generated a consult for Dr. Adam radiation oncologist Patient will definitely need preoperative radiation and chemotherapy As well as the mass in the right colon can be either endoscopically resected with EMR technology at a tertiary center or can have a and mass resection at the same time of colonoscopy Family is very much aware My discussion with them Patient's son works here and I have talked to him a lot Time Spent with Patient Time attestation: Total time spent providing and/or coordinating discharge services: Exam Vital Signs Temp Pulse Resp BP Pulse Ox O2 Del Method O2 Flow Rate 97.1 F 66 18 135/79 H 99 Room Air 3 06/25/24 08:00 06/25/24 08:00 06/25/24 08:00 06/25/24 08:00 06/25/24 08:00 06/25/24 08:00 06/23/24 19:05 Discharge Plan Plan Disposition Comment: Hospitalist to admit Prescriptions/Referrals Prescriptions/Med Rec: No Action loratadine [Claritin Liqui-Gel] 10 mg capsule 10 mg PO QDAY Qty: 10 0RF guaifenesin 100 mg/5 mL liquid 200 mg PO Q4H PRN (Reason: cold symptoms) Qty: 237 0RF latanoprost 0.005 % Drops 1 drp OPHTHALMIC (EYE) QPM timolol maleate 0.5 % Drops 1 drp OPHTHALMIC (EYE) BID brimonidine 0.15 % drops 1 drp OPHTHALMIC (EYE) Q8H Patient Comments: INSTILL 1 DROP INTO BOTH EYES EVERY 8 HOURS FOR 30 DAYS hydrochlorothiazide 25 mg tablet 25 mg PO QDAY atorvastatin 40 mg tablet 40 mg PO QDAY losartan 100 mg tablet 100 mg PO QDAY docusate sodium 100 mg capsule 100 mg PO QDAY hydrocortisone [Proctozone-HC] 2.5 % cream with perineal applicator loperamide 2 mg capsule 2 mg PO Q6H PRN (Reason: loose stool) Qty: 30 0RF Referrals: No Primary/Family,Physician [Primary Care Provider] - Patient/Caregiver Discharge Instructions Print Language: Ivorian Discharge Order Discharge Orders: Discharge (Routine); Ordered 06/25/24 Ordered By: Yosef Ruelas
--- NOTE | 2024-06-25 10:40 | ESPR_ITS ---
<Statement entered by Mark Sharif MD - 07/01/24 21:46> I reviewed above note and agree with findings and plans. I have also personally examined the patient with medicine team and went over assessment and plan with medical team including real estate internship and resident physician. Documentation for date of: 06/25/24 Subjective Subjective Interval history: Patient seen and examined at bedside this morning. Vitals stable, labs reviewed. WBC continues to downtrend, hemoglobin stable. CHEM panel significant for magnesium 1.3 which was repleted. Discussed with patient importance of oncology evaluation, likely on 06/26 morning. Patient agrees to stay. He also stated that he felt he had some prostate issues, therefore added Flomax. Etienne clamping trial was ordered and patient was able to void on his own, therefore Etienne was removed. Exam Vital Signs Temp Pulse Resp BP Pulse Ox O2 Del Method O2 Flow Rate 97.1 F 68 16 135/79 H 97 Room Air 3 06/25/24 08:00 06/25/24 10:38 06/25/24 10:38 06/25/24 08:00 06/25/24 10:38 06/25/24 08:00 06/23/24 19:05 Narrative Exam Gen: AAOx3, resting comfortably, pleasant to speak with, answers Qs appropriately HEENT: NCAT, PERRLA, EOMI, MMM, anicteric CVS: normal S1, S2. RRR. No MRG. Distal pulses palpable Resp: CTA B/L. No rhonchi, rales, crackles or wheezing Abd: soft, non-tender, non-distended. BS+ in all 4 quadrants : Etienne, urine without any clots/hematuria MSK: Good ROM in BUE & BLE. No edema or rash. Neuro: CN II-XII grossly intact. No focal deficits appreciated Objective Labs 06/25/24 04:35 06/25/24 04:35 Labs: Laboratory Results - last 24 hr 06/24/24 06/25/24 11:40 04:35 WBC 13.4 H 12.8 H RBC 3.46 L 3.32 L Hgb 11.0 L 10.6 L Hct 31.7 L 31.8 L MCV 92 96 MCH 31.8 31.9 MCHC 34.7 33.3 RDW Std Deviation 47.1 H 49.8 H Plt Count 321 320 Neut % (Auto) 78 74 Lymph % (Auto) 16 18 [place] % (Auto) 5 6 Eos % (Auto) 1 1 Baso % (Auto) 0 0 Neut # (Auto) 10.4 H 9.5 H Lymph # (Auto) 2.1 2.3 [place] # (Auto) 0.7 0.7 Eos # (Auto) 0.1 0.2 Baso # (Auto) 0.0 0.0 Immature Gran # (Auto) 0.08 H 0.07 H Absolute Nucleated RBC 0.00 0.00 Immature Gran % 1 H 1 H Nucleated RBC % 0 0 Sodium 143 Potassium 4.0 D Chloride 113 H Carbon Dioxide 22.6 Anion Gap 7 BUN 10 Creatinine 0.8 Estim Creat Clear Calc 75.1 eGFR > 60 BUN/Creatinine Ratio 13 Glucose 93 Calculated Osmolality 283 Lactic Acid 1.7 Calcium 8.1 L Corrected Calcium 8.7 Magnesium 1.3 L Total Bilirubin 0.2 L AST 12 ALT 12 Alkaline Phosphatase 104 Total Protein 5.1 L Albumin 3.2 L Globulin 1.9 L Albumin/Globulin Ratio 1.7 ABG Interpretation ABG results: 06/22/24 09:30 VBG pH 7.31 L VBG pCO2 38 VBG pO2 36 VBG Base Excess -7 L Quality Measures Quality Measures VTE prophylaxis (SCDs) Assessment & Plan Assessment Current Active Medications: Generic Name Dose Route Start Last Admin Trade Name Freq PRN Reason Stop Dose Admin Acetaminophen 650 mg 06/22/24 14:45 Acetaminophen 325 Mg Tablet PO 07/22/24 14:44 Q6H PRN pain and Fever >100.4 Protocol Hydrocodone Bitart/Acetaminophen 1 tab 06/22/24 14:45 06/25/24 03:50 Hydrocodone/Apap 5/325 Tablet PO 06/27/24 14:44 1 tab Q4HR PRN Administration PAIN SCALE 4-10(Mod-Sev Albuterol/Ipratropium 3 ml 06/23/24 08:24 Albuterol/Ipratropium (Duoneb) Rt Mamta 3 Ml Nebu INH 07/23/24 08:23 Q2HR PRN SHORTNESS OF BREATH OR WHEEZE Atorvastatin Calcium 40 mg 06/23/24 21:00 06/24/24 20:17 Atorvastatin Calcium 20 Mg Tablet PO 07/23/24 20:59 40 mg HS ERINN Administration Sodium Chloride 1,000 mls @ 150 mls/hr 06/24/24 11:00 06/25/24 08:02 Ns IV 07/24/24 10:59 150 mls/hr .Q6H40M ERINN Administration Magnesium Sulfate 4 gm in 50 mls @ 12.5 mls/hr 06/25/24 08:46 06/25/24 09:08 Magnesium Sulfate Ivpb IV 06/25/24 12:45 12.5 mls/hr X1 ONE Administration Nicotine 14 mg 06/23/24 10:15 06/25/24 08:02 Nicotine Patch 14 Mg/24 Hr Patch.Td24 TOP 07/23/24 10:14 14 mg QDAY ERINN Administration Ondansetron HCl 4 mg 06/22/24 14:45 Ondansetron Inj 2 Mg/Ml Inj 2 Ml IV 07/22/24 14:44 Q6H PRN NAUSEA OR VOMITING Protocol Pantoprazole Sodium 40 mg 06/22/24 15:00 06/25/24 08:03 Pantoprazole 40 Mg Tablet PO 07/22/24 14:59 40 mg QDAY ERINN Administration Plan Patient is a 64-year-old male with HTN, HLD, glaucoma, and a current smoker who was admitted for rectal wall thickening, as seen on CT scan from 06/15/2024. Patient additionally reported diarrhea x 2 months associated with intermittent rectal pain. He underwent a colonoscopy which revealed a 1 cm rectal mass at anal verge along with a few polyps that were resected. 1 polyp in his ascending colon was not able to be resected, and per GI, will likely need to be removed at a tertiary center. Additionally, CEA was elevated at 156. He is pending oncology consult. Anticipate discharge in 24 hours. #Intractable diarrhea, improved #Rectal wall thickening seen on CT #Rectal mass, s/p biopsy #Concern for colon cancer Presents with diarrhea for 2 months with associated rectal pain. No previous colonoscopy. Current active smoker 1 pack/day. CT A/P on 06/15 showed rectal wall thickening. CEA elevated at 156.4. Colonoscopy 06/23: 1 cm rectal mass at anal verge. Mucosal ulceration in proximal descending colon (biopsied). 1 polyp in transverse colon, 1 polyp in descending colon, both resected. 1 polyp in ascending colon to be resected by EMR. ? GI consulted, appreciate recommendations: 1 polyp in ascending colon to be resected by EMR ? Recommend follow-up outpatient ? Oncology consulted, appreciate recs ? Stool studies: 3+ WBC, calprotectin 166, C. diff negative, giardia pending #Current smoker At least 1 pack/day Patient would like to quit, and has not felt cravings while using nicotine patch Will DC with NRT #Concern for BPH Patient endorses having difficulty urinating/LUTS Will start patient on Flomax and have him follow-up with PCP outpatient for further workup Patient was able to void with Etienne clamped after being treated with Flomax Will continue to monitor blood pressure at this time #Hypotension, resolved #Bradycardia, resolved #Hypertension On 06/24: Patient was noted to be hypotensive & bradycardic, with SBP in 90s, HR in 50s => patient was given IV fluids and diet advanced to regular diet, with improvement in vital signs 06/25: IV fluids discontinued as VSS => continue to monitor vital signs as patient is now on Flomax #HLD Continue home atorvastatin #Bacteriuria UA positive for bacteriuria but patient does not endorse symptoms and will not require treatment at this time. #Electrolyte abnormalities #Hypomagnesemia #Hyponatremia, resolved #Hypokalemia, resolved #Anion gap metabolic acidosis, resolved Replete magnesium 4 g Hospital management: Disposition: Pending oncology consult; anticipate DC to SNF on 06/26 Diet: regular diet Lines: PIV DVT prophylaxis: SCDs GI prophylaxis: pantoprazole CODE STATUS: full code Patient seen and care discussed with my attending Dr. Sharif. Yosef Ruelas MD PGY-3
--- NOTE | 2024-06-25 11:08 | PC.SS ---
SS spoke to RNTo in regards to pt DC today to [facility]. Per To pt still has hickey cath and she needs to speak to in regards to FC. SS on standby to set up transport due to FC.
[2024-06-25] MEDS: TAMSULOSIN HCL 0.4 MG CAPSULE PO (11:40)
--- NOTE | 2024-06-25 15:21 | PD.IMPROG ---
Documentation for date of: 06/25/24 Subjective Subjective Interval history: Patient evaluated discussed in detail his diagnosis include the possibility of preoperative chemo and radiation followed by abdominal. Dissection and permanent colostomy he is amenable to it the only issue is large polyp/mass in the right colon Which I will address before surgical intervention I placed a consult yesterday for him to be evaluated by radiation oncologist Dr. Adam Exam Vital Signs Temp Pulse Resp BP Pulse Ox O2 Del Method O2 Flow Rate 97.6 F 62 18 149/79 H 98 Room Air 3 06/25/24 12:00 06/25/24 12:00 06/25/24 12:00 06/25/24 12:00 06/25/24 12:00 06/25/24 12:00 06/23/24 19:05 Objective Labs 06/25/24 04:35 06/25/24 04:35 Labs: Laboratory Results - last 24 hr 06/25/24 04:35 WBC 12.8 H RBC 3.32 L Hgb 10.6 L Hct 31.8 L MCV 96 MCH 31.9 MCHC 33.3 RDW Std Deviation 49.8 H Plt Count 320 Neut % (Auto) 74 Lymph % (Auto) 18 [place] % (Auto) 6 Eos % (Auto) 1 Baso % (Auto) 0 Neut # (Auto) 9.5 H Lymph # (Auto) 2.3 [place] # (Auto) 0.7 Eos # (Auto) 0.2 Baso # (Auto) 0.0 Immature Gran # (Auto) 0.07 H Absolute Nucleated RBC 0.00 Immature Gran % 1 H Nucleated RBC % 0 Sodium 143 Potassium 4.0 D Chloride 113 H Carbon Dioxide 22.6 Anion Gap 7 BUN 10 Creatinine 0.8 Estim Creat Clear Calc 75.1 eGFR > 60 BUN/Creatinine Ratio 13 Glucose 93 Calculated Osmolality 283 Calcium 8.1 L Corrected Calcium 8.7 Magnesium 1.3 L Total Bilirubin 0.2 L AST 12 ALT 12 Alkaline Phosphatase 104 Total Protein 5.1 L Albumin 3.2 L Globulin 1.9 L Albumin/Globulin Ratio 1.7 Impressions Impression: Anorectal mass squamous versus adenocarcinoma biopsies pending Multiple polyps endoscopically resected Large polyp/mass in the ascending colon Continue current management ABG Interpretation ABG results: 06/22/24 09:30 VBG pH 7.31 L VBG pCO2 38 VBG pO2 36 VBG Base Excess -7 L Assessment & Plan A&P Narrative Chronic persistent diarrhea with abnormal CT scan of the abdomen pelvis showing thickening of the rectal wall Plan Complete diarrhea panel including culture and sensitivity Gram stain Giardia antigen and stool for C. difficile by PCR GoLytely prep Consent obtained for fiberoptic colonoscopy with possible biopsy possible therapeutic intervention under intravenous moderate sedation Will follow the patient Other medical problems include Essential hypertension Hyperlipidemia Glaucoma Thank you very much for the opportunity to participate in the care of this patient Time Spent With Patient Time: Total time spent is greater than 50% in coordination of care (as documented) at patient's floor/unit and/or counseling patient:
[2024-06-25] MEDS: ACETAMINOPHEN 325 MG TABLET 650 MG PO (20:06)
[2024-06-25] MEDS: ATORVASTATIN CALCIUM 20 MG TABLET 40 MG PO (20:06)
[2024-06-26] VITALS (7 sets, daily range): BP systolic 106–162; BP diastolic 55–88; PULSE 61–77; RESP 16–94; TEMP 36.3–36.7; O2SAT 94–99
[2024-06-26] MEDS: HYDROcodone/APAP 5/325 TABLET 1 TAB PO ×2 (04:26→10:55)
[2024-06-26 07:07] LABS: Giardia Result NOT DETECTED
--- NOTE | 2024-06-26 07:36 | ESCONSULT_ITS ---
HPI Data of Consult Requesting Physician: Mark Sharif MD Primary Care Provider: Physician No Primary/Family Consult Narrative Reason for consult: Likely CA involving rectal region. History of present illness: Patient is a 64-year-old gentleman experiencing diarrhea being followed by [facility] where CT scan also revealed on 06/15/2024 thickening of the rectal wall and 21 mm right adrenal nodule. Chest x-ray revealed basilar bronchitis versus early bibasilar bronchopneumonia. Underwent colonoscopy performed by Dr. Aguirre on 06/23/2024 upon admission revealing rectal mass 1 cm from the anal verge, described to be extending from [address] position all the way up to 9:00 quite large and firm. Mucosal ulceration proximal ascending colon which was also biopsied and one 25 mm polyp in the proximal ascending colon which is large and stuck in left alone as it had to be resected by EMR. 1 large polyps in the transverse colon and another in descending colon removed and resected with biopsies performed. Multiple additional polyps were also left alone. Patient referred for oncological consultation. CEA was considerably elevated at 156 on 06/22/2024. Receiving supportive care for electrolyte abnormalities. darrhea now improved. Patient now referred for oncological consultation. cc:: cc: Mark Sharif MD Past Medical History Family History OTHER FAMILY HX: Many types and mother side Social History SOCIAL: History of heavy smoking and still smokes 1 pack a day Past Medical History Comments PMH COMMENT: Hypertension bronchitis GI disorders and hemorrhoids cataracts glaucoma chickenpox Meds Home Medications and Allergies Home Medications ?Medication ?Instructions ?Recorded ?Confirmed ?Type latanoprost 0.005 % eye drops 1 drp ophthalmic (eye) Q PM 03/09/18 06/23/24 History timolol maleate 0.5 % eye drops 1 drp ophthalmic (eye) BID 03/09/18 08/02/18 History atorvastatin 40 mg tablet 40 mg PO QDAY 06/23/2406/23 History brimonidine 0.15 % eye drops 1 drp ophthalmic (eye) Q8 H 06/23/24 06/23/24 History docusate sodium 100 mg capsule 100 mg PO QDAY 06/23/24 06/23/24 History hydrochlorothiazide 25 mg tablet 25 mg PO QDAY 5 06/23/24 History hydrocortisone 2.5 % topical cream 06/23/24 History with perineal applicator (Proctozone-HC) losartan 100 mg tablet 100 mg PO QDAY 06/23/2405/28 History Allergies Allergy/AdvReac Type Severity Reaction Status Date / Time No Known Allergies Allergy Verified 06/22/24 08:48 Exam Vital Signs Temp Pulse Resp BP Pulse Ox O2 Del Method O2 Flow Rate 97.4 F 68 18 107/56 L 96 Room Air 3 06/26/24 04:00 06/26/24 04:00 06/26/24 04:00 06/26/24 04:00 06/26/24 04:00 06/26/24 04:00 06/23/24 19:05 Narrative Exam Tired appearing gentleman in no acute distress Results Labs 06/25/24 04:35 06/25/24 04:35 ABG Interpretation ABG results: 06/22/24 09:30 VBG pH 7.31 L VBG pCO2 38 VBG pO2 36 VBG Base Excess -7 L Assessment and Plan Additional Assessment & Plan Additional Plan: 1. Likely rectal malignancy biopsy result pending. Additional polyps removed and biopsy results also pending. 2. Colonoscopy revealing multiple polyps, including large mass in the right colon which may need removal at time of surgery or at a tertiary center. 3. Very high CEA which may suggest distant mets, staging workup including PET scan will be scheduled following discharge. 4. Clinically improving with supportive care for bowel symptoms electrolyte imbalances. 5. Thank you for allow me to evaluate this patient
[2024-06-26] MEDS: PANTOPRAZOLE 40 MG TABLET PO (08:01)
[2024-06-26] MEDS: TAMSULOSIN HCL 0.4 MG CAPSULE PO (08:01)
[2024-06-26] MEDS: NICOTINE PATCH 14 MG/24 HR PATCH.TD24 TOP (08:01)
--- NOTE | 2024-06-26 10:56 | ESDS_ITS ---
<Statement entered by Mark Sharif MD - 07/01/24 21:50> I reviewed above note and agree with findings and plans. I have also personally examined the patient with medicine team and went over assessment and plan with medical team including inclusion intern and resident physician. <Statement entered by Delvis Bunn MD - 06/26/24 11:08> I saw and examined the patient, and I agree with current management stated by Dr Juan M MD,PGY1. Plan of care was discussed with the attending physician and resident physician. Disclaimer: Despite multiple revisions, due to the dictation software being used, the document bellow may not be free of grammatical errors including phonetic/typographic errors. However, this does not deter from our commitment to providing health care in the patient's best interest in mind. Dr. Oni MD, PGY 2 Planned Discharge Date 06/26/24 DS: Providers Provider Date of admission: 06/22/24 15:00 Primary care physician: Physician No Primary/Family Admitting Provider: Mark Sharif MD Attending Provider on Admission: Mark Sharif MD Consults: 06/22/24 14:51 Consult to Gastroenterology Routine Comment: Consulting Provider: Obdulia Aguirre 06/22/24 18:30 Health Equity Referral - Knowledge Deficit Routine Comment: Positive screening for knowledge deficit needs. Health Equity Referral - Nutrition Routine Comment: Positive screening for nutrition needs. Health Equity Referral - Transportation Routine Comment: Positive screening for transportation needs. Health Equity Referral - Utilities Routine Comment: Positive screening for utility assistance needs. 06/24/24 07:43 Consult to Oncology Routine Comment: Consulting Provider: Jose Roberto Adam 06/24/24 22:43 Consult to Oncology Routine Comment: Consulting Provider: Jose Roberto Adam Attending Provider on DC: Mark Sharif MD Discharging Provider: Mark Sharif MD DS: Diagnosis Problem List Completed Was Problem List Reviewed/Reconciled?: Yes Hospital Course Hospital Course Hospital course: Rebecca Holcomb is a 64-year-old male with a past medical history of hypertension, hyperlipidemia, glaucoma, and is a current smoker who was admitted on 06/22 for rectal wall thickening seen on CT obtained on 06/15. Also endorsed intractable diarrhea for 2 months with associated rectal pain. During hospitalization, underwent colonoscopy revealed a 1 cm rectal mass at the anal verge that was biopsied as well as polyps that were resected. 1 polyp in ascending colon was not able to be resected and per GI will likely need to be resected at tertiary center. CEA noted to be elevated at 156. Thus oncology consulted who saw patient prior to discharge. Otherwise, patient noted to have low blood pressure and to be bradycardic and so IVF rate increased, that restarted, and eyedrops DC'd and vitals stabilized. Therefore patient deemed stable for discharge and instructed to follow-up with GI and oncology for further workup. Diagnoses during admission: #Intractable diarrhea, improved #Rectal wall thickening seen on CT #Rectal mass, s/p biopsy #Concern for colon cancer #Current smoker #Concern for BPH #Hypotension, resolved #Bradycardia, resolved #Hypertension #HLD #Asymptomatic bacteriuria #Hypomagnesemia #Hyponatremia, resolved #Hypokalemia, resolved #Anion gap metabolic acidosis, resolved Discharge instructions: - Start taking tamsulosin 0.4 mg daily for BPH - Start taking pantoprazole 40 mg daily - Continue nicotine patches for smoking cessation support - Stop taking hydrochlorothiazide upon discharge and follow-up with PCP - Hold on taking brimonidine eyedrops due to possible low blood pressure and heart rate and follow-up with PCP - Otherwise continue taking all other home medications as prescribed - Follow-up with Dr. Adam outpatient - Follow-up biopsy results with Dr. Aguirre - Follow-up with PCP within 1 week of discharge. If there are no appointments available, you can follow at the [facility]. Please call [phone] to make an appointment. - Return to ED if symptoms worsen or recur Time Spent with Patient Time attestation: Total time spent providing and/or coordinating discharge services: Exam Vital Signs Temp Pulse Resp BP Pulse Ox O2 Del Method O2 Flow Rate 97.5 F 77 16 141/79 H 97 Room Air 3 06/26/24 08:00 06/26/24 08:00 06/26/24 08:00 06/26/24 08:00 06/26/24 08:00 06/26/24 08:00 06/23/24 19:05 Narrative Exam General: AOx3, no acute distress, able to speak full sentences HEENT: NC/AT, mucous membranes moist, bilateral sclera anicteric Cardiovascular: regular rate and rhythm, S1/S2 present, no murmurs appreciated Pulmonary: clear to auscultation bilaterally, no rales/rhonchi/wheezes Abdominal: soft, non-tender, non-distended, no rebound/guarding, normal bowel sounds present Musculoskeletal: normal ROM, no peripheral edema Skin: warm and dry, intact, no rashes Neuro: CN II-XII intact, no focal deficits Discharge Plan Plan Patient Disposition: Xfer Skilled Nsg Fac (SNF) Disposition Comment: [facility] Patient condition on transfer: Stable Care Plan Goals: - Start taking tamsulosin 0.4 mg daily for BPH - Start taking pantoprazole 40 mg daily - Continue nicotine patches for smoking cessation support - Stop taking hydrochlorothiazide upon discharge and follow-up with PCP - Hold on taking brimonidine eyedrops due to possible low blood pressure and heart rate and follow-up with PCP - Otherwise continue taking all other home medications as prescribed - Follow-up with Dr. Adam outpatient - Follow-up biopsy results with Dr. Aguirre - Follow-up with PCP within 1 week of discharge. If there are no appointments available, you can follow at the [facility]. Please call [phone] to make an appointment. - Return to ED if symptoms worsen or recur Prescriptions/Referrals Prescriptions/Med Rec: New tamsulosin 0.4 mg Capsule 0.4 mg PO QDAY Qty: 60 0RF pantoprazole 40 mg Tablet,Delayed Release (Dr/Ec) 40 mg PO QDAY Qty: 60 0RF nicotine 14 mg/24 hr Patch 24 Hour 14 mg top QDAY Qty: 7 0RF Continued loratadine [Claritin Liqui-Gel] 10 mg capsule 10 mg PO QDAY Qty: 10 0RF guaifenesin 100 mg/5 mL liquid 200 mg PO Q4H PRN (Reason: cold symptoms) Qty: 237 0RF latanoprost 0.005 % Drops 1 drp OPHTHALMIC (EYE) QPM timolol maleate 0.5 % Drops 1 drp OPHTHALMIC (EYE) BID atorvastatin 40 mg tablet 40 mg PO QDAY docusate sodium 100 mg capsule 100 mg PO QDAY hydrocortisone [Proctozone-HC] 2.5 % cream with perineal applicator losartan 100 mg tablet 100 mg PO QDAY Qty: 90 0RF Rx Instructions: Hold if SBP below 100 and DBP below 60 mmHg loperamide 2 mg capsule 2 mg PO Q6H PRN (Reason: loose stool) Qty: 30 0RF Held brimonidine 0.15 % drops 1 drp OPHTHALMIC (EYE) Q8H Hold Instructions: Resume on 06/26/24. Hold until you see your PCP Patient Comments: INSTILL 1 DROP INTO BOTH EYES EVERY 8 HOURS FOR 30 DAYS Discontinued hydrochlorothiazide 25 mg tablet 25 mg PO QDAY Referrals: Jose Roberto Adam MD [Physician] - No Primary/Family,Physician [Primary Care Provider] - Patient/Caregiver Discharge Instructions Print Language: Amharic Stand Alone Forms: [employer]ulee Award Info., Patient Portal Info Letter Discharge Order Discharge Orders: Discharge (Routine); Ordered 06/26/24 Ordered By: Yosef Ruelas Quality Discharge Quality Measures VTE prophylaxis
--- NOTE | 2024-06-26 12:56 | PC.NURSE ---
Notified Dr Bunn of pts current bp 162/81-66. Pt comfortable norco given earlier for pain and under control. No complains of chest pain at this time will cont with MDs new orders.
[2024-06-26] MEDS: LOSARTAN POTASSIUM 25 MG TABLET 50 MG PO (12:59)
--- NOTE | 2024-06-26 13:03 | PC.SS ---
Addendum entered by Sarika Rodriguez 06/26/24 13:45: SS follow up note; [facility] contacted SS with ETA for 1600. SS notified patient's nurse, Dariana and patient as well. SS updated Katja from [facility]. Original Note: SS follow up note; SS contacted [facility] however informed SS they are not able to find patient in their system. SS contacted [facility] services to set up transportation, they informed SS that they would contact SS with ETA.
[2024-06-26] MEDS: ACETAMINOPHEN 325 MG TABLET 650 MG PO (14:02)
--- NOTE | 2024-06-26 15:16 | PC.NURSE ---
Report given to Brenda CHAUDHRY at [facility].
--- NOTE | 2024-06-26 15:52 | PD.IMPROG ---
Documentation for date of: 06/26/24 Subjective Subjective Interval history: patient evaluated by the oncology team he will be followed as an outpatient. I discussed the matter with the patient personally Exam Vital Signs Temp Pulse Resp BP Pulse Ox O2 Del Method O2 Flow Rate 97.5 F 70 21 H 131/66 H 94 L Room Air 3 06/26/24 12:00 06/26/24 13:55 06/26/24 13:55 06/26/24 13:55 06/26/24 13:55 06/26/24 12:30 06/23/24 19:05 Objective Labs 06/25/24 04:35 06/25/24 04:35 Labs: Laboratory Results - last 24 hr 06/22/24 23:38 Stl Giardia Antigen NOT DETECTED Impressions Impression: Anorectal carcinoma right colonic polyp versus mass removal of multiple polyps outpatient follow-up ABG Interpretation ABG results: 06/22/24 09:30 VBG pH 7.31 L VBG pCO2 38 VBG pO2 36 VBG Base Excess -7 L Assessment & Plan A&P Narrative 1. Likely rectal malignancy biopsy result pending. Additional polyps removed and biopsy results also pending. 2. Colonoscopy revealing multiple polyps, including large mass in the right colon which may need removal at time of surgery or at a tertiary center. 3. Very high CEA which may suggest distant mets, staging workup including PET scan will be scheduled following discharge. 4. Clinically improving with supportive care for bowel symptoms electrolyte imbalances. 5. Thank you for allow me to evaluate this patient Time Spent With Patient Time: Total time spent is greater than 50% in coordination of care (as documented) at patient's floor/unit and/or counseling patient:
--- NOTE | 2024-06-26 16:08 | PC.NURSE ---
Pt transpoted by [facility] by [facility]. pt aaox4 and stable.
[2024-06-30 06:29] LABS: ANCA Screen NEGATIVE (NEGATIVE); Myeloperoxidase Ab <1.0 AI (<1.0); Proteinase-3 Ab <1.0 AI (<1.0)
== END 2024-06-26 16:08 | disposition skilled nursing facility (03) | DRG 375 ==
LOC: SERX 14:20 → SERHOLD 15:01 → S3SX 18:01
PROVIDERS: Specialist; Admitting Provider Internal Medicine; Emergency Provider Emergency Medicine; Visit Provider Internal Medicine
PROC: 0DJD8ZZ Inspection of Lower Intestinal Tract, Via Natural or Artificial Opening Endoscopic (ICD-10-PCS; CPT 45378; principal; 2024-06-23 16:30)
DX: C21.8 Malignant neoplasm of overlapping sites of rectum, anus and anal canal (principal); E87.1 Hypo-osmolality and hyponatremia; K63.3 Ulcer of intestine; E87.20 Acidosis, unspecified; N17.9 Acute kidney failure, unspecified; K63.5 Polyp of colon; E78.5 Hyperlipidemia, unspecified; J40 Bronchitis, not specified as acute or chronic; I10 Essential (primary) hypertension; F17.210 Nicotine dependence, cigarettes, uncomplicated; N40.0 Benign prostatic hyperplasia without lower urinary tract symptoms; H40.9 Unspecified glaucoma; E87.6 Hypokalemia; K76.89 Other specified diseases of liver; R00.1 Bradycardia, unspecified; R82.71 Bacteriuria; E83.42 Hypomagnesemia; I95.9 Hypotension, unspecified; E27.8 Other specified disorders of adrenal gland; Z79.899 Other long term (current) drug therapy; Z80.1 Family history of malignant neoplasm of trachea, bronchus and lung; Z80.8 Family history of malignant neoplasm of other organs or systems
CPT/HCPCS: 36415; 71045; 80053; 80061; 81001; 82378; 82803; 83036; 83605; 83690; 83735; 84439; 84443; 85025; 85610; 85652; 86021; 86036; 86140; 86850; 86900; 86901; 87015; 87040; 87045; 87046; 87205; 87329; 87493; 87899; 93005; 96360; 99291; A4649; J1200; J2250; J3010; J3475; J7030; A9270

== ENCOUNTER 2024-07-12 08:34 | Outpatient (RCR) | payer MEDICARE, MEDICAID, SELFPAY ==
--- NOTE | 2024-07-12 10:04 | CTCFLWUP_ITS ---
Danyel Huerta [facility] [address] [place], [place] [address] FOLLOW-UP NOTE Date: 07/12/2024 MR#: [id number] Name: LILIAN NARAYAN : Dx: C20 malignant neoplasm of rectum Identification. Patient admitted with rectal pain and diarrhea found to have colorectal CA during hospital stay of 2 weeks ago.. Please see consult of 06/26/2024. Abdominal pelvis CT of 06/15/2024 revealed a 21 mm indeterminate right adrenal nodule as well as thickened rectal wall. Endoscopy performed by Dr. Aguirre 06/23/2024 revealed rectal mass 1 cm from the anal verge, described to be 7 cm fixed biopsied revealing invasive adenocarcinoma well-differentiated. Polyps removed from the right colon transverse colon descending colon negative for dysplasia or malignancy. There was a 25 mm polyp in proximal ascending colon stuck to the ascending colon left alone to have this resected by EMR. There was no loss of expression in all 4 mismatch repair proteins. CEA was considerably elevated at 156. Moderate elevation of alk phos at 183 later normalized with hydration and rest of LFTs unremarkable. As I see patient today he appears well but complaining of rectal pain with [place] 5 every 6 not helping him enough. Denies lower GI bleeding or constipation. A#1. Invasive adenocarcinoma rectal region 1 cm from anal verge. A#2. May have distant mets as there is a right adrenal nodule and CEA is elevated at 156. A#3. Will get PET scan MRI of the pelvis for staging purposes A#4. Increase pain medication from [place] 5 to [place] 10 every 6 as needed. A#5. Port placement for the needed chemo A#6. Referral to medical oncologist Dr. Madrid A#7. Has follow-up with Dr. Aguirre and myself. A#8. Currently residing in snf facility which may be be challenging in terms of orders and treatment. 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 Electronically signed by: Jose Roberto Adam M.D. 07/12/2024 10:02 AM
== END 2024-07-24 23:59 | disposition home or self-care (01) ==
LOC: SCTC 08:34
PROVIDERS: Referring Provider Radiology Therapeutic Radiology; Visit Provider Radiology Therapeutic Radiology
DX: C20 Malignant neoplasm of rectum (principal); E27.8 Other specified disorders of adrenal gland; G89.3 Neoplasm related pain (acute) (chronic)
CPT/HCPCS: 99213; G0463

== ENCOUNTER → 2024-08-15 | Outpatient (CLI) | payer MEDICARE, MEDICAID, SELFPAY ==
--- NOTE | 2024-08-15 13:15 | XR_ITS ---
EXAMINATION: PET/CT FUSION SKULL TO THIGH EXAM DATE AND TIME: August 15, [address] abdomen pelvis June 15, 2024 CT chest 01/07/2012 INDICATIONS: Diagnosis rectal cancer, staging prior to treatment CTDI:vol (mGy) 4.70 DLP: (mGycm) 128.89 PROCEDURE: 15.7 mCi FDG was administered intravenously To allow for distribution and uptake of radiotracer, the patient was allowed to rest quietly in a shielded room. Imaging was performed on an integrated 16-slice PET/CT scanner, with scanning from the skull base to the mid thigh. Serum blood glucose at the time of the injection was measured 90 mg/dL. CT scanning was performed without oral or intravenous contrast material. FINDINGS: Head and Neck: 24 mm hypermetabolic area in the laryngeal region on the right side Chest: 2 mm non hypermetabolic pulmonary nodule right lower lobe image 101 6 mm pulmonary nodule Hypermetabolic left lower lobe image 104. Abdomen and Pelvis: 10 mm hypermetabolic focus upper right lobe of the liver axial image 119 Weakly hypermetabolic right adrenal mass 28 mm Hypermetabolic fourth and fifth sacral segments Musculoskeletal: Marrow uptake is within normal range. IMPRESSION: Metastatic pulmonary nodules, recommend high-resolution CT chest without contrast follow-up 10 mm hypermetabolic focus right lobe of the liver, recommend MRI abdomen follow-up pre and postcontrast Osseous metastatic disease involving fourth and fifth sacral segments, consider whole body bone scan follow-up 24 mm hypermetabolic laryngeal region, recommend CT soft tissue neck post intravenous contrast follow-up
== END | disposition home or self-care (01) ==
PROVIDERS: PCP Hospitalist; Referring Provider Radiology Therapeutic Radiology; Visit Provider Radiology Therapeutic Radiology
DX: C78.00 Secondary malignant neoplasm of unspecified lung (principal); C79.51 Secondary malignant neoplasm of bone; C20 Malignant neoplasm of rectum
CPT/HCPCS: 78815; A9552

== ENCOUNTER 2024-08-16 08:46 | Outpatient (RCR) | payer MEDICARE, MEDICAID, SELFPAY ==
--- NOTE | 2024-08-16 14:04 | CTCCONSULT_ITS ---
Patient: LILIAN NARAYAN : 1960 MR#: [id number] Page 2 of 2 CONSULTATION NOTE DATE OF CONSULTATION: 08/16/2024 NAME: LILIAN NARAYAN ACCOUNT: [id number] : 1960 AGE: 64 REFERRING PHYSICIAN: Jose Roberto Adam MD PRIMARY PHYSICIAN: Yury Madrid MD REASON FOR VISIT: New diagnosis of rectal cancer ONCOLOGY HISTORY: DIAGNOSIS: Malignant neoplasm of rectum [ICD10] C20 DATE OF DIAGNOSIS: STAGE/TNM: TREATMENT HISTORY: Care?Plan Start?Date Cycle Day Intent HISTORY OF PRESENT ILLNESS: The patient is a 64-year-old male with rectal cancer presenting for initial oncology evaluation and treatment planning. He reports symptom onset approximately 9 months ago and has not yet received any cancer-specific treatment. The patient describes significant discomfort from hemorrhoids, which he states are pretty bad with pain but no bleeding. He mentions a sensation of the hemorrhoids going up inside my penis, though the physician clarifies this is likely related to prostate enlargement rather than cancer spread. The patient is currently taking Flomax 0.4 mg for urinary symptoms associated with his prostate. The patient recently developed shingles while staying at a rehabilitation facility, which resulted in a brief quarantine. He has completed the prescribed medication for shingles and reports that they are okay now. The patient's rectal cancer symptoms have significantly impacted his quality of life, stating, It made my life so miserable. He expresses a strong desire to get rid of it. Regarding his smoking history, the patient reports he started smoking at age 15 and quit 2 months ago. He denies any breathing problems, COPD, or use of inhalers. The patient is currently receiving physical therapy at a long term. He has not undergone any surgical interventions for his rectal cancer, such as a colectomy. A port placement is scheduled for Wednesday, with plans to initiate chemotherapy and radiation therapy in the coming week. Medical History - Rectal cancer diagnosed approximately 9 months ago - Shingles (recent episode, resolved) - Benign prostatic hyperplasia (BPH) Medications and Supplements - Flomax 0.4 mg - Helps with urination - Shingles medication - Completed course Social History - Substance Use: Former smoker, started at age 15 and quit 2 months ago (49-year smoking history) - Living Situation: Currently staying at a rehab facility Review of Systems Skin: Positive for shingles (resolved). HEENT: Positive for throat lesion. Gastrointestinal: Positive for hemorrhoids with pain, negative for rectal bleeding. Genitourinary: Positive for sensation of hemorrhoids extending into penis. Respiratory: Negative for breathing problems. OTHER MEDICAL HISTORY/CONDITIONS: Rectal cancer - dx 06/23/24 HTN Hyperlipidemia BPH Glaucoma - very limited vision Eye surgery for glaucoma - 7 yrs ago Umbilical hernia - as child FAMILY HISTORY: Mother:?UNKNOWN SOCIAL HISTORY: Occupational?History:?DISABLED?- Education?Level:?Completed 10th grade Marital?Status:?Single Tobacco Use:?Quit - 2 months ago - smoked 1-2 PDD for 20yrs ETOH?Use:?Socially?-?rarely Drug?Note:?Denies Social?History?Note:?LIVES?IN?SNF MEDICATIONS: 1. atorvastatin - 40 mg Daily 2. brimonidine-timolol - 1 drops Every 8 Hours 3. Flomax - 0.4 mg Daily 4. latanoprost - 1 drops Every day before sleep 5. loratadine - 10 mg 1 tab Daily 6. losartan - 100 mg 1 tab Daily 7. Lyrica - 50 mg 1 Capsule Every 8 Hours 8. melatonin - 3 mg 1 tab Every day before sleep 9. nicotine - 7 mg/24hr 1 Patch Daily 10. Troy - 5 mg As directed 11. oxyCODONE - 7.5 mg 1 Every 6 Hours 12. Protonix - 40 mg Daily 13. tamsulosin - 0.4 mg 1 Capsule Daily 14. timolol maleate - 1 drops Twice a Day 15. Tylenol - 325 mg 2 tab Every 6 Hours Medications Last Reconciled by Susan Lange RN on 08/16/2024 ALLERGIES: No Known Drug Allergies REVIEW OF SYSTEMS: A complete 14-point review of systems was performed and is negative except as noted in interval history. PHYSICAL EXAMINATION: VITAL SIGNS: Temperature?95.9, B/P?127/71, Height?64?inches, Oxygen?Saturation?96% Weight?145?lbs PAIN: 5 - Between moderate and severe pain ECOG Performance Status: 2 - Symptomatic; ambulatory; capable of self-care; >50% of waking hrs. not in bed GENERAL APPEARANCE: Appears well, in no apparent distress, appropriately interactive. HEENT: Normocephalic, no temporal wasting, normal conjunctiva, no scleral icterus, normal hearing, lips without lesions, neck normal range of motion. CARDIOVASCULAR: Not assessed. PULMONARY: Normal respiratory effort, no respiratory distress or use of accessory muscles, speaking in full sentences, no tachypnea. EXTREMITIES: No pedal edema or cyanosis. SKIN: Normal skin appearance. NEUROLOGIC: Alert and oriented x4. PSHYCHIATRIC: Appropriate affect, mood normal, behavior normal, intact thought and speech. Physical Examination General: Patient observed in person. Genitourinary: Penis examined, no visible growth noted. No mass noted outside the anus Laboratory, Imaging, and Diagnostic Test Results - PET CT scan (08/15/2024): - Lung nodules present - Small liver lesion identified - Abnormality noted in throat LABORATORY DATA: I have personally reviewed and interpreted each of the patient?s relevant lab tests, abnormal findings are below: Date ASSESSMENT/PLAN: 64-year-old male with rectal cancer presenting for initial oncology evaluation and treatment planning, with recent history of shingles and long-term smoking history. Rectal Cancer Assessment: Patient diagnosed with rectal cancer approximately 9 months ago, presenting for initial oncology evaluation and treatment planning. Recent PET CT scan reveals lung nodules, a small liver lesion, and a throat lesion, suggesting possible metastatic disease. Given the patient's extensive smoking history (started at age 15, quit 2 months ago), there is a concern for potential laryngeal cancer as well. The rectal cancer is causing significant discomfort, including hemorrhoids, but has not invaded the penis despite the patient's sensation. Treatment approach will depend on the extent of disease spread. Plan: - Initiate neoadjuvant chemotherapy and radiation therapy if cancer is localized, or chemotherapy alone if widely metastatic - Port placement scheduled for Wednesday - Start treatment within 7-10 days - Schedule chemo education appointment with nursing staff - Perform baseline laboratory tests today - Prescribe medication to prevent recurrence of shingles during chemotherapy - Monitor treatment response: - Assess for disappearance of lung nodules, liver lesion, and throat lesion - Track tumor markers and other relevant lab values - Follow up in 4-6 weeks after treatment initiation - Refer for evaluation of potential laryngeal cancer -Will start on FOLFOX to decrease the size of the tumor history of Shingles Assessment: Patient recently completed treatment for shingles while in a rehabilitation facility. Currently asymptomatic. Plan: - Prescribe prophylactic medication to prevent shingles recurrence during chemotherapy Benign Prostatic Hyperplasia (BPH) Assessment: Patient reports urinary symptoms attributed to an enlarged prostate. Currently managed with Flomax (tamsulosin) 0.4 mg. Plan: - Continue Flomax (tamsulosin) 0.4 mg as prescribed Smoking History Assessment: Patient has an extensive smoking history of 49 years, having started at age 15 and quit 2 months ago at age 64. No current respiratory symptoms or known COPD. 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 I spent a total of 50 minutes on this patient?s care on the day of their visit excluding time spent related to any billed procedures. This time includes time spent with the patient as well as time spent documenting in the medical record, reviewing patients records and tests, obtaining history, placing orders, communicating with other healthcare professionals, counseling the patient, family or caregiver, and/or care coordination for the diagnoses above. Electronically Signed by: Yury Madrid MD T: 2:01 PM CC: Jose Roberto?Kia? PCP: Yury Madrid Referring: Jose Roberto Adam This document was completed utilizing speech recognition software. Grammatical errors, random word insertions, pronoun errors, and incomplete sentences are an occasional consequence of this system due to software limitations, ambient noise, and hardware issues. Any formal questions or concerns about the content, text or information contained within the body of this dictation should be directly addressed to the provider for clarification.
== END 2024-08-23 23:59 | disposition home or self-care (01) ==
LOC: SCTC 08:46
PROVIDERS: PCP Hospitalist; Referring Provider Radiology Therapeutic Radiology; Visit Provider Internal Medicine Hematology & Oncology
DX: C20 Malignant neoplasm of rectum (principal); R91.8 Other nonspecific abnormal finding of lung field; K76.89 Other specified diseases of liver; K76.9 Liver disease, unspecified; J39.2 Other diseases of pharynx; Z87.891 Personal history of nicotine dependence; N40.0 Benign prostatic hyperplasia without lower urinary tract symptoms
CPT/HCPCS: 36415; 80053; 82378; 85025; 99213; G0463

== ENCOUNTER → 2024-08-16 | Outpatient (CLI) | payer MEDICARE, MEDICAID, SELFPAY ==
[2024-08-16 14:30] LABS: Basophils # (Auto) 0.1 Thou/mm3 (0.0-0.2); Basophils % (Auto) 0 % (0-2.5); Eosinophils # (Auto) 0.3 Thou/mm3 (0.0-0.5); Eosinophils % (Auto) 2 % (0-10); Hematocrit 35.7 % (41.0-53.0); Hemoglobin 11.8 g/dL (13.5-16.0); Immature Granulocytes % (Auto) 0 % (0-0); Immature Granulocytes Auto 0.05 Thou/mm3 (0.00-0.00); Lymphocytes # (Auto) 1.9 Thou/mm3 (1.0-4.8); Lymphocytes % (Auto) 16 % (10-50); Mean Corpuscular HGB Conc 33.1 g/dl (31.0-37.0); Mean Corpuscular Volume 97 fL (80-100); Monocytes # (Auto) 0.9 Thou/mm3 (0.0-0.8); Monocytes % (Auto) 7 % (0-12); Neutrophils # (Auto) 8.7 Thou/mm3 (1.8-7.7); Neutrophils % (Auto) 74 % (37-80); Nucleated Red Blood Cell % 0 /100 WBC (0); Platelet Count 304 Thou/mm3 (140-440); RDW Standard Deviation 47.4 fL (35.1-43.9); Red Blood Count 3.69 Miln/mm3 (4.50-5.90); White Blood Count 11.8 Thou/mm3 (3.8-10.6)
[2024-08-16 14:59] LABS: Alanine Aminotransferase 24 U/L (10-49); Albumin, Serum 4.2 gm/dL (3.4-4.8); Albumin/Globulin Ratio 1.6 (1.2-2.2); Alkaline Phosphatase 115 U/L (46-116); Anion Gap 7 (7-16); Aspartate Amino Transferase 21 U/L (0-34); BUN/Creatinine Ratio 14 Ratio (12-20); Bilirubin,Total 0.4 mg/dL (0.3-1.2); Blood Urea Nitrogen 17 mg/dL (9-23); Carbon Dioxide 25.7 mMol/L (20.0-31.0); Chloride 108 mMol/L (98-107); Creatinine (Component) 1.2 mg/dL (0.6-1.3); Globulin 2.7 gm/dL (2.3-3.5); Glucose 108 mg/dL (74-106); Osmolality,Calculated 283 (275-295); Potassium 4.3 mMol/L (3.4-5.1); Sodium 141 mMol/L (136-145); Total Protein 6.9 gm/dL (5.7-8.2); eGFR > 60 See Note
[2024-08-16 15:49] LABS: Carcinoembryonic Antigen 169.1 ng/mL (0.0-5.0)
== END | disposition home or self-care (01) ==
LOC: SCTH 13:46
PROVIDERS: Referring Provider Internal Medicine Hematology & Oncology; Visit Provider Internal Medicine Hematology & Oncology
DX: C20 Malignant neoplasm of rectum (principal)
CPT/HCPCS: 36415; 80053; 82378; 85025

== ENCOUNTER 2024-08-18 09:05 | Day surgery (SDC) | payer MEDICARE, MEDICAID, SELFPAY ==
[2024-08-17 08:30] VITALS: BMI 23.1
[2024-08-17 09:30] LABS: Basophils % (Auto) 0 % (0-2.5); Eosinophils # (Auto) 0.3 Thou/mm3 (0.0-0.5); Eosinophils % (Auto) 3 % (0-10); Hematocrit 35.2 % (41.0-53.0); Hemoglobin 11.6 g/dL (13.5-16.0); Immature Granulocytes % (Auto) 1 % (0-0); Immature Granulocytes Auto 0.05 Thou/mm3 (0.00-0.00); Lymphocytes % (Auto) 21 % (10-50); Mean Corpuscular Hemoglobin 31.6 pg (25.0-35.0); Mean Corpuscular Volume 96 fL (80-100); Monocytes # (Auto) 0.9 Thou/mm3 (0.0-0.8); Monocytes % (Auto) 10 % (0-12); Neutrophils # (Auto) 6.2 Thou/mm3 (1.8-7.7); Neutrophils % (Auto) 66 % (37-80); Nucleated Red Blood Cell % 0 /100 WBC (0); Platelet Count 284 Thou/mm3 (140-440); RDW Standard Deviation 47.3 fL (35.1-43.9); Red Blood Count 3.67 Miln/mm3 (4.50-5.90); White Blood Count 9.4 Thou/mm3 (3.8-10.6)
[2024-08-17 09:38] LABS: Alanine Aminotransferase 27 U/L (10-49); Albumin, Serum 4.4 gm/dL (3.4-4.8); Albumin/Globulin Ratio 1.8 (1.2-2.2); Alkaline Phosphatase 111 U/L (46-116); Anion Gap 8 (7-16); Aspartate Amino Transferase 23 U/L (0-34); BUN/Creatinine Ratio 19 Ratio (12-20); Bilirubin,Total 0.5 mg/dL (0.3-1.2); Blood Urea Nitrogen 17 mg/dL (9-23); Calcium 9.3 mg/dL (8.3-10.6); Calcium (Corrected) 9.3 mg/dL (8.5-10.1); Carbon Dioxide 25.4 mMol/L (20.0-31.0); Chloride 103 mMol/L (98-107); Creatinine (Component) 0.9 mg/dL (0.6-1.3); Estimated Creatinine Clearance 74.8 mL/min (>60); Globulin 2.5 gm/dL (2.3-3.5); Glucose 63 mg/dL (74-106); Osmolality,Calculated 271 (275-295); Partial Thromboplastin Time 24.8 Seconds (22.0-36.0); Potassium 3.9 mMol/L (3.4-5.1); Prothrombin Time 10.8 Seconds (9.0-12.2); Sodium 136 mMol/L (136-145); Total Protein 6.9 gm/dL (5.7-8.2); eGFR > 60 See Note
--- NOTE | 2024-08-17 14:11 | SUR.PREOP ---
Pt just recovered from shingles to right lower back down to the buttock, area is pink and dry, no open areas. Info shared with Radha IVAN and Dr Craft.
--- NOTE | 2024-08-17 14:13 | SUR.PREOP ---
Instructions given to Michelle CHAUDHRY at [facility], pt to keep NPO after MN, take HTN meds with a sip of water, pt to come in at 0930. Instructions also given about HCG bath.
[2024-08-18] VITALS (9 sets, daily range): BP systolic 134–173; BP diastolic 67–96; PULSE 63–82; RESP 13–18; TEMP 36.2–37.1; O2SAT 95–100; BMI 24.3
--- NOTE | 2024-08-18 11:30 | XR_ITS ---
Examination: AP chest single view Technique one AP portable supine chest single view Exam date and time: August 18, 2024 1454 hours Comparison June 22, 2024 INDICATIONS: Port-A-Cath placement today FINDINGS: Left subclavian Port-A-Cath tip right atrium No pneumothorax Normal heart size IMPRESSION: Left subclavian Port-A-Cath tip right atrium
--- NOTE | 2024-08-18 15:22 | XR_ITS ---
Examination: AP chest single view TECHNIQUE: AP portable semiupright chest single view Exam date and time: August 18, 2024 1625 hours INDICATIONS: Postop Port-A-Cath insertion FINDINGS: Left subclavian Port-A-Cath tip SVC satisfactory position No pneumothorax Normal heart size IMPRESSION: Left subclavian Port-A-Cath with tip satisfactory position SVC
--- NOTE | 2024-08-18 15:24 | ESOP_ITS ---
Date of Procedure 08/18/24 Pre Op Diagnosis Carcinoma of the rectum requiring chemoradiation Stricture of veins Post Op Diagnosis Same Procedure Insertion of a Port-A-Cath using ultrasound guidance through the left subclavian vein Findings Patient was found to have a left subclavian vein which was patent and was used for low-profile port placement Procedure Description After the patient was brought to the operating room he was placed in supine position. Site-Rite ultrasound was used to identify the left subclavian vein and I chose this for insertion of the Port-A-Cath. After the patient's chest and neck were prepped with chloreprep solution and draped I used a mini stick to get into the left subclavian vein. Then I passed a small guidewire measuring 0.018 inch in diameter into the vein. Then this was switched over to a catheter to accommodate larger guidewire measuring 0.035 inches in diameter which was basically a J-wire. Then I used a 9 Monegasque valved vessel dilator over the guidewire which was then pulled out. Then I introduced a 8 Monegasque polyurethane catheter from the [employer] and positioned it on the distal part of the superior vena cava. An x-ray was obtained to confirm the position of the tip. The tip was about 23 cm from the entry site. Then I made a small pocket 5 cm's below the entry site on the left chest below the clavicle to accommodate the port after injecting local anesthesia with 1% Xylocaine. Then I tunneled the polyurethane catheter from the entry site to this pocket in the chest wall and I connected it to low-profile Dignity port from [employer] using a catheter lock. Excellent blood return was obtained at the end of the procedure and this was flushed with heparinized saline. Then the port was attached to the chest wall muscle using 0 Ethibond sutures. Subcutaneous tissues was closed with 3-0 chromic and the skin by 5-0 nylon stitches. Dressing was applied with Adaptic and 4 x 4 and the patient tolerated the procedure well and left operating room in stable condition. Anesthesia other Pathology / specimen None Estimated Blood Loss 20 Surgeon Lakhwinder Suarez MD Surgical Staff Operation Date: 08/18/24 11:30 <No data on this case meets the specified criteria>
--- NOTE | 2024-08-18 15:24 | SUR.PHASEI ---
pt received from OR in recovery bay 1. pt asleep but responds to voice, breathing unlabored on oxymask 6l. v/s stable. pt dressing to left upper chest cdi. report received from Chava Betts and Garth MURRY.
--- NOTE | 2024-08-18 15:48 | SUR.PHASEI ---
pt able to tolerate oral fluids without difficulty swallowing or nasuea/vomiting.
--- NOTE | 2024-08-18 17:08 | SUR.PHASEII ---
pt awake and alert, breathing unlabored on room air. v/s stable. pt dressing to left upper chest cdi. d/c instructions/report given to Skinny nurse at [facility] over telephone, all questions answered. pt d/c via wheelchair with all belongings.
== END 2024-08-18 17:08 | disposition home or self-care (01) ==
PROVIDERS: Family Provider Surgery; PCP Hospitalist; Referring Provider Surgery; Visit Provider Surgery
PROC: (CPT 36561; principal; 2024-08-18 11:30)
DX: C20 Malignant neoplasm of rectum (principal); I87.1 Compression of vein; I10 Essential (primary) hypertension; E78.5 Hyperlipidemia, unspecified; Z87.891 Personal history of nicotine dependence
CPT/HCPCS: 36561; 76937; 36415; 71046; 80053; 85025; 85610; 85730; A4217; A4649; C1788; C1894; J2250; J2405; J2704; J3010; J7999

== ENCOUNTER → 2024-08-23 | Outpatient (CLI) | payer MEDICARE, MEDICAID, SELFPAY ==
--- NOTE | 2024-08-23 09:00 | XR_ITS ---
Examination: MRI pelvis with intravenous contrast TECHNIQUE: Axial coronal sagittal MR images pelvis post intravenous ministration 13 cc gadolinium INDICATION: Rectal pain 9 months, diagnosis malignant neoplasm rectum Exam date and time: August 23, 2024 0905 hours Comparison PET/CT scan August 15, 2024 FINDINGS: Enhancing soft tissue rectal mass, beginning 6.7 cm from the anus Wall thickening of tumor mass in the rectum anteriorly measuring up to 13 mm Tumor in this region appears to extend outside the serosal lining of the rectum Small subcentimeter right perirectal lymph nodes No prostatomegaly Normal seminal vesicles Fat plane is obliterated between the anterior margin of the rectum and the prostate There is enhancement in the presacral region sagittal image 19 measuring up to 4 mm in thickness There is abnormal enhancement involving the third fourth sacral segments IMPRESSION: Enhancing soft tissue rectal mass beginning 6.7 cm from the anus Wall thickening of the tumor mass in the rectum anterior wall measuring up to 13 mm Rectal tumor appears to extend outside the serosal lining of the rectum Small subcentimeter right perirectal lymph nodes Fat plane is obliterated between the inner margin of the rectum and the prostate Mild enhancement in the presacral region Osseous metastatic disease third and fourth sacral segments
== END | disposition home or self-care (01) ==
LOC: SMRI 08:33
PROVIDERS: PCP Hospitalist; Referring Provider Radiology Therapeutic Radiology; Visit Provider Radiology Therapeutic Radiology
DX: C20 Malignant neoplasm of rectum (principal); C79.51 Secondary malignant neoplasm of bone
CPT/HCPCS: 72196; A9579

== ENCOUNTER 2024-09-08 09:07 | Outpatient (RCR) | payer MEDICARE, MEDICAID, SELFPAY | END 2024-09-23 23:59 | disposition home or self-care (01) | LOC: SCTC 09:07 | PROVIDERS: PCP Hospitalist; Referring Provider Hospitalist; Visit Provider Internal Medicine Hematology & Oncology | DX: C20 Malignant neoplasm of rectum (principal) ==

== ENCOUNTER 2024-09-20 12:56 | Inpatient (IN) | payer MEDICARE, MEDICAID, SELFPAY ==
[2024-09-20 12:59] VITALS: PULSE 90; RESP 20; O2SAT 95
[2024-09-20 13:06] VITALS: BMI 23.3
--- NOTE | 2024-09-20 13:08 | PD.EDADULT ---
ED General RME/HPI General Chief complaint: General Adult/Misc Complain Stated complaint: CHILLS Time Seen by Provider: 09/20/24 13:00 Source: patient Arrival date/time: 09/20/24 12:56 Mode of arrival: EMS Limitations: altered mental status RME / HPI RME / HPI narrative: 64-year-old male presents to the ED via EMS with a complaint of being out of touch with reality . He states he is staying at a rehab facility here in the area. He has a past medical history of rectal cancer and substance abuse. Related Data Home Medications ?Medication ?Instructions ?Recorded ?Confirmed latanoprost 0.005 % eye drops 1 drp ophthalmic (eye) QPM 03/09/18 08/18/24 timolol maleate 0.5 % eye drops 1 drp ophthalmic (eye) BID 03/09/18 08/18/24 atorvastatin 40 mg tablet 40 mg PO QDAY 06/23/24 08/18/24 brimonidine 0.15 % eye drops 1 drp ophthalmic (eye) Q8H 06/23/24 08/18/24 docusate sodium 100 mg capsule 100 mg PO QDAY 06/23/24 08/18/24 hydrocortisone 2.5 % topical cream 06/23/24 with perineal applicator (Proctozone-HC) melatonin 3 mg capsule 3 mg PO HS 08/17/24 08/18/24 oxycodone 10 mg/0.5 mL oral 7.5 mg PO Q6H PRN pain 08/17/24 08/18/24 syringe (FOR ORAL USE ONLY) pregabalin 50 mg capsule (Lyrica) 50 mg PO Q8H PRN pain 08/17/24 08/18/24 Previous Rx's ?Medication ?Instructions ?Recorded guaifenesin 100 mg/5 mL oral liquid 200 mg (10 mL) PO Q4H PRN cold 05/11/18 symptoms #237 mL loratadine 10 mg capsule (Claritin 10 mg PO QDAY #10 caps 05/11/18 Liqui-Gel) loperamide 2 mg capsule 2 mg PO Q6H PRN loose stool #30 06/15/24 caps losartan 100 mg tablet 100 mg PO QDAY #90 tabs 06/26/24 nicotine 14 mg/24 hr daily 14 mg top QDAY #7 ea 06/26/24 transdermal patch pantoprazole 40 mg tablet,delayed 40 mg PO QDAY #60 tabs 06/26/24 release tamsulosin 0.4 mg capsule 0.4 mg PO QDAY #60 caps 06/26/24 Allergies Allergy/AdvReac Type Severity Reaction Status Date / Time No Known Allergies Allergy Verified 08/18/24 09:51 Review of Systems Review of Systems Systems Reviewed: All systems reviewed, normal except as documented Past Medical History Past Medical History NEUROLOGIC: Negative Neurological Disorders or Seizures CARDIAC: Positive Cardiac Disorders, Hypercholesterolemia and Hypertension; Negative Congestive Heart Failure RESPIRATORY: Positive Bronchitis; Negative Chronic Obstructive Pulmonary Disease (COPD) or Asthma GASTROINTESTINAL: Positive Gastrointestinal Disorders, Colorectal Cancer and Hemorrhoids GENITOURINARY: Positive Benign Prostatic Hyperplasia; Negative Genitourinary Disorders or Renal Disease MUSCULOSKELETAL: Negative Musculoskeletal Disorders ENT: Positive Cataracts, Glaucoma and Blind (right , left blurry) ENDOCRINE: Negative Endocrine Disorders, Diabetes Mellitus Type 1 or Diabetes Mellitus Type 2 HEMATOLOGIC: Negative Blood Disorders or Sickle Cell Disease OTHER HISTORY: Positive Shingles (recent right buttock, slightly red and dried, was treated), Chicken Pox, Measles, Mumps, Cancer and Colorectal Cancer; Negative Autoimmune Disease, Blood Transfusions, Blood Transfusion Reaction or Anesthesia Reactions Family History FAMILY HISTORY: Positive Family Cancer; Negative Family Psychiatric Problems, Family Respiratory Disorders, Family Cardiac Disorders, Family Gastrointestinal Problems, Family Surgery or Family Anesthesia Reaction Surgical History SURGICAL: Positive Eye Surgery (stents for glaucoma) Social History SMOKING STATUS: Former smoker SECOND HAND EXPOSURE: No ED Exam General Limitations: Present altered mental status General appearance: Present in no apparent distress Head Head exam: Present atraumatic and normocephalic Eye Eye exam: Present normal appearance; Absent scleral icterus or conjunctival injection Neck Neck exam: Present normal inspection Chest Chest inspection: Present normal inspection Respiratory Respiratory exam: Present normal lung sounds bilaterally; Absent respiratory distress Cardiovascular Cardiovascular exam: Present regular rate and irregular rhythm Abdominal Exam Abdominal exam: Present soft, distention and other; Absent tenderness, guarding or rebound Rectal Exam Rectal exam: Present deferred Extremities Exam Extremities exam: Present normal inspection Back Exam Back exam: Present normal inspection; Absent tenderness Neurological Exam Neurological exam: Present alert Psychiatric Psychiatric exam: Present depressed and flat affect Skin Skin exam: Present warm, dry, intact and normal color Course Course Course Narrative: 64-year-old male presents to the ED via EMS with a complaint of being out of touch with reality . He states he is staying at a rehab facility here in the area. He has a past medical history of rectal cancer and substance abuse. Initial temperature 102.7. Patient was given Tylenol 1 g p.o. CBC reveals a white count of 19.4, low H&H of 11.1/32.9 with normal platelets. ANC 16.3. Chemistry panel is essentially normal with the exception of a glucose of 119 and calcium of 8.4. LFTs and renal function are normal as well as amylase and lipase. Blood alcohol level is less than 3.0. Ammonia level is less than 10 and Troponin is less than 0.020. Lactic acid is normal at 2.0 Urinalysis reveals turbid yellow urine with 1+ protein, 1+ blood, positive leukocyte esterase, negative nitrates, 2 RBCs, 189 WBCs and rare bacteria. Drug screen is positive for opiates. EKG reveals atrial fibrillation at a rate of 87, negative STEMI. Chest x-ray is negative for acute process. CT chest abdomen and pelvis: IMPRESSION: Numerous bilateral metastatic pulmonary nodules. Right upper lobe pneumonia. Bilateral adrenal metastatic masses. No bowel obstruction. Rectal tumor mass measuring up to 20 mm in thickness posterior wall of the rectum and extending proximal to distal 7 cm. Osseous metastatic disease with bony erosion involving the fifth sacral segment and first coccygeal segment Orders Category Date Time Status CT Screening NOW Care 09/20/24 17:[address] Screening NOW Care 09/20/24 18:[address] Screening X1 Care 09/20/24 17:42 Active EKG (ED ONLY) *Do not use* NOW Care 09/20/24 13:10 Completed EKG (ED ONLY) *Do not use* NOW Care 09/20/24 18:09 Active IV [Insert IV] NOW Care 09/20/24 13:14 Active In and Out Catheter X1 Care 09/20/24 18:09 Completed NPO STAT Care 09/20/24 13:[address] chest abdomen pelvis w Stat Exams 09/20/24 18:[address] head/brain wo con Stat Exams 09/20/24 13:10 Completed EKG (ED Only) Stat Exams 09/20/24 13:10 Draft EKG (ED Only) Stat Exams 09/20/24 18:09 Draft XR chest 1V portable Stat Exams 09/20/24 13:10 Completed Alcohol, Blood Medical Stat Lab 09/20/24 13:38 Completed Ammonia Stat Lab 09/20/24 13:38 Completed Amylase Stat Lab 09/20/24 13:38 Completed Blood Culture (Lab) Stat Lab 09/20/24 13:43 Received CBC Stat Lab 09/20/24 13:38 Completed CRP [C-Reactive Protein] Stat Lab 09/20/24 19:10 Completed Comprehensive Metabolic Panel Stat Lab 09/20/24 13:38 Completed Drug Screen,Urine Stat Lab 09/20/24 20:10 Completed ESR [Sed Rate (ESR)] Stat Lab 09/20/24 19:10 Completed Lactic Acid [Lactate (Lactic Acid)] Stat Lab 09/20/24 13:38 Completed Lipase Stat Lab 09/20/24 13:38 Completed Procalcitonin Stat Lab 09/20/24 19:10 Completed Troponin I Stat Lab 09/20/24 13:38 Completed Troponin I Stat Lab 09/20/24 19:10 Completed Urinalysis Stat Lab 09/20/24 20:10 Ordered Urinalysis Stat Lab 09/20/24 20:12 Completed Urine Culture Stat Lab 09/20/24 20:10 Received Acetaminophen Tab [Tylenol ES Tab] Med 09/20/24 13:39 Discontinued 1,000 mg PO X1 ONE Vital Signs Vital signs: Vital Signs Temperature 102.7 F H 09/20/24 13:09 Pulse Rate 90 09/20/24 13:09 Respiratory Rate 20 09/20/24 13:09 Blood Pressure 103/63 09/20/24 13:09 Pulse Oximetry (%) 98 09/20/24 13:09 Oxygen Delivery Method Room Air 09/20/24 13:09 Discharge Plan Plan Patient Disposition: Admit Acute Care w/in Hospital Prescriptions/Referrals Prescriptions/Med Rec: No Action Claritin Liqui-Gel 10 mg capsule 10 mg PO QDAY Qty: 10 0RF guaifenesin 100 mg/5 mL liquid 200 mg PO Q4H PRN (Reason: cold symptoms) Qty: 237 0RF latanoprost 0.005 % Drops 1 drp OPHTHALMIC (EYE) QPM timolol maleate 0.5 % Drops 1 drp OPHTHALMIC (EYE) BID brimonidine 0.15 % drops 1 drp OPHTHALMIC (EYE) Q8H Patient Comments: INSTILL 1 DROP INTO BOTH EYES EVERY 8 HOURS FOR 30 DAYS atorvastatin 40 mg tablet 40 mg PO QDAY docusate sodium 100 mg capsule 100 mg PO QDAY hydrocortisone [Proctozone-HC] 2.5 % cream with perineal applicator tamsulosin 0.4 mg Capsule 0.4 mg PO QDAY Qty: 60 0RF pantoprazole 40 mg Tablet,Delayed Release (Dr/Ec) 40 mg PO QDAY Qty: 60 0RF nicotine 14 mg/24 hr Patch 24 Hour 14 mg top QDAY Qty: 7 0RF losartan 100 mg tablet 100 mg PO QDAY Qty: 90 0RF Rx Instructions: Hold if SBP below 100 and DBP below 60 mmHg pregabalin [Lyrica] 50 mg capsule 50 mg PO Q8H PRN (Reason: pain) melatonin 3 mg capsule 3 mg PO HS oxycodone 10 mg/0.5 mL syringe 7.5 mg PO Q6H PRN (Reason: pain) loperamide 2 mg capsule 2 mg PO Q6H PRN (Reason: loose stool) Qty: 30 0RF Referrals: No Primary/Family,Physician [Primary Care Provider] - In 1 week Problem List Clinical Impression: Community acquired pneumonia, Pyelonephritis, Metastatic cancer Patient/Caregiver Discharge Instructions Print Language: Romansh Stand Alone Forms: [employer] Award Info., Patient Portal Info Letter PA/GENERATION ENGINEERING TECHNOLOGIST Supervising Physician PA/GENERATION ENGINEERING TECHNOLOGIST Supervising Physician: Dr Kia LYONS Imaging Radiology reports / interpretation(s): XR CHEST: FINDINGS: Mild prominence left ventricle No lobar pneumonia or pulmonary edema Left subclavian Port-A-Cath tip right atrium IMPRESSION: No pneumonia identified HEAD CT: Findings: No significant ventricular enlargement. Intra-axial or extra-axial hemorrhage density is not seen. No mass effect or midline shift Basal cisterns are not remarkable. Fourth ventricle is midline. Cranial vault intact. Impression: Negative for acute hemorrhage, mass effect or midline shift Advise clinical correlation follow-up accordingly CT Chest/Abd/Pelvis: Findings: No thoracic aortic aneurysm dilatation No pulmonary artery emboli on this non-CTA study 14 mm right tracheobronchial lymph node 13 mm subcarinal lymph node Numerous bilateral metastatic pulmonary nodules ranging in size from 2 to 15 mm Right upper lobe pneumonia Minimal bilateral pleural disease Retrocardiac gastric hernia 12 mm left lobe liver lesion Contracted gallbladder Spleen not enlarged No pancreatic mass Left adrenal nodule 19 mm, right adrenal mass 30 mm No hydronephrosis Aorta normal size No bowel obstruction No pericecal inflammatory change Normal seminal vesicles Transverse prostate dimension 5.5 cm Diffuse abnormal thickening of the rectal wall especially posteriorly, sagittal image 93, measuring up to 20 mm in thickness and extending proximal to distal 7 cm Bony erosion involving the fifth sacral segment and first coccygeal segment IMPRESSION: Numerous bilateral metastatic pulmonary nodules Right upper lobe pneumonia Bilateral adrenal metastatic masses No bowel obstruction Rectal tumor mass measuring up to 20 mm in thickness posterior wall of the rectum and extending proximal to distal 7 cm Osseous metastatic disease with bony erosion involving the fifth sacral segment and first coccygeal segment Medication Administration(s) Medication Administration History Discontinued Medications Acetaminophen (Acetaminophen 500 Mg Tablet) 1,000 mg PO X1 ONE Stop: 09/20/24 13:40 Last Admin: 09/20/24 13:59 Dose: 1,000 mg Documented By: HAIDER Diagnosis Most likely dx, and/or detailed dx discussion: Pyelonephritis, Pneumonia Dispositon Disposition: Admit
[2024-09-20 13:09] VITALS: BP 103/63; PULSE 90; RESP 20; TEMP 39.3; O2SAT 98
--- NOTE | 2024-09-20 13:10 | EKG_ITS ---
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
--- NOTE | 2024-09-20 13:10 | XR_ITS ---
Examination: AP chest single view Technique one AP portable semiupright chest single view Date and time: September 12, 2024 1355 hours Comparison August 18, 2024 INDICATIONS: Sepsis alert today. FINDINGS: Mild prominence left ventricle No lobar pneumonia or pulmonary edema Left subclavian Port-A-Cath tip right atrium IMPRESSION: No pneumonia identified
--- NOTE | 2024-09-20 13:10 | XR_ITS ---
Examination: CT brain head without contrast. 2-D sagittal coronal reconstructions Date and time of exam:September 20, 2024 1346 hours INDICATIONS: Altered mental status today CTDI: vol (mGy):51 DLP: (mGycm):1082 Technique: Multiple CT axial sections of the brain have been obtained, 5 mm slice thickness. Contrast has not been administered. 2-D sagittal, coronal reconstructions have been obtained Low dose protocols were performed. One or more of the following dose reduction techniques were used; automated exposure control, adjustment of the mA and/or KV according to patient size, use of iterative reconstruction technique. Findings: No significant ventricular enlargement. Intra-axial or extra-axial hemorrhage density is not seen. No mass effect or midline shift Basal cisterns are not remarkable. Fourth ventricle is midline. Cranial vault intact. Impression: Negative for acute hemorrhage, mass effect or midline shift Advise clinical correlation follow-up accordingly
--- NOTE | 2024-09-20 13:43 | PC.NURSE ---
PT TAKEN TO CT.
[2024-09-20 13:51] LABS: Basophils # (Auto) 0.1 Thou/mm3 (0.0-0.2); Basophils % (Auto) 0 % (0-2.5); Eosinophils # (Auto) 0.2 Thou/mm3 (0.0-0.5); Eosinophils % (Auto) 1 % (0-10); Hematocrit 32.9 % (41.0-53.0); Hemoglobin 11.1 g/dL (13.5-16.0); Immature Granulocytes % (Auto) 1 % (0-0); Immature Granulocytes Auto 0.16 Thou/mm3 (0.00-0.00); Lymphocytes # (Auto) 1.2 Thou/mm3 (1.0-4.8); Lymphocytes % (Auto) 6 % (10-50); Mean Corpuscular HGB Conc 33.7 g/dl (31.0-37.0); Mean Corpuscular Hemoglobin 30.5 pg (25.0-35.0); Mean Corpuscular Volume 90 fL (80-100); Monocytes # (Auto) 1.4 Thou/mm3 (0.0-0.8); Monocytes % (Auto) 7 % (0-12); Neutrophils # (Auto) 16.3 Thou/mm3 (1.8-7.7); Neutrophils % (Auto) 84 % (37-80); Nucleated Red Blood Cell % 0 /100 WBC (0); Platelet Count 211 Thou/mm3 (140-440); RDW Standard Deviation 41.6 fL (35.1-43.9); Red Blood Count 3.64 Miln/mm3 (4.50-5.90); White Blood Count 19.4 Thou/mm3 (3.8-10.6)
[2024-09-20 13:59] VITALS: TEMP 39.3
[2024-09-20] MEDS: ACETAMINOPHEN 500 MG TABLET 1000 MG PO (13:59)
[2024-09-20 14:25] LABS: Alanine Aminotransferase 16 U/L (10-49); Albumin/Globulin Ratio 1.7 (1.2-2.2); Alcohol, Blood Medical < 3.0 mg/dL (0-10.0); Amylase 39 U/L (30-118); Anion Gap 10 (7-16); Aspartate Amino Transferase 24 U/L (0-34); BUN/Creatinine Ratio 20 Ratio (12-20); Bilirubin,Total 0.6 mg/dL (0.3-1.2); Blood Urea Nitrogen 20 mg/dL (9-23); Calcium 8.4 mg/dL (8.3-10.6); Calcium (Corrected) 8.4 mg/dL (8.5-10.1); Carbon Dioxide 24.8 mMol/L (20.0-31.0); Chloride 102 mMol/L (98-107); Estimated Creatinine Clearance 67.3 mL/min (>60); Globulin 2.3 gm/dL (2.3-3.5); Glucose 119 mg/dL (74-106); Lipase 22 U/L (12-53); Osmolality,Calculated 277 (275-295); Potassium 4.9 mMol/L (3.4-5.1); Sodium 137 mMol/L (136-145); Total Protein 6.3 gm/dL (5.7-8.2); Troponin I < 0.020 ng/mL (0.0-0.045); eGFR > 60 See Note
[2024-09-20 14:37] LABS: Alkaline Phosphatase 113 U/L (46-116)
[2024-09-20 14:52] LABS: Ammonia < 10 uMol/L (11-32)
[2024-09-20 16:00] VITALS: BP 117/81; PULSE 79; RESP 18; TEMP 37.2; O2SAT 97
--- NOTE | 2024-09-20 18:03 | XR_ITS ---
Examination: CT chest with intravenous contrast CT abdomen with intravenous contrast CT pelvis with intravenous contrast 2-D coronal and sagittal reconstructions Exam date time: September 20, 2024, [address] scan August 15, 2024 INDICATIONS: Rectal cancer diagnosis 2 months ago with rectal mass pain fever and leukocytosis today CTDI: vol (mGy) : 12.87 DLP: (mGycm): 582 Technique: Multiple axial images of the chest, abdomen and pelvis with intravenous contrast, 3.0 mm slice thickness. Images obtained post intravenous injection Isovue 370 60 cc. 2-D sagittal and coronal reconstructions. Low dose protocols were performed. One or more of the following dose reduction techniques were used; automated exposure control, adjustment of the mA and/or KV according to patient size, use of iterative reconstruction technique. Findings: No thoracic aortic aneurysm dilatation No pulmonary artery emboli on this non-CTA study 14 mm right tracheobronchial lymph node 13 mm subcarinal lymph node Numerous bilateral metastatic pulmonary nodules ranging in size from 2 to 15 mm Right upper lobe pneumonia Minimal bilateral pleural disease Retrocardiac gastric hernia 12 mm left lobe liver lesion Contracted gallbladder Spleen not enlarged No pancreatic mass Left adrenal nodule 19 mm, right adrenal mass 30 mm No hydronephrosis Aorta normal size No bowel obstruction No pericecal inflammatory change Normal seminal vesicles Transverse prostate dimension 5.5 cm Diffuse abnormal thickening of the rectal wall especially posteriorly, sagittal image 93, measuring up to 20 mm in thickness and extending proximal to distal 7 cm Bony erosion involving the fifth sacral segment and first coccygeal segment IMPRESSION: Numerous bilateral metastatic pulmonary nodules Right upper lobe pneumonia Bilateral adrenal metastatic masses No bowel obstruction Rectal tumor mass measuring up to 20 mm in thickness posterior wall of the rectum and extending proximal to distal 7 cm Osseous metastatic disease with bony erosion involving the fifth sacral segment and first coccygeal segment
--- NOTE | 2024-09-20 18:09 | EKG_ITS ---
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
[2024-09-20 19:30] LABS: Sed Rate (ESR) 51 mm/hr (0-20)
--- NOTE | 2024-09-20 19:30 | PC.NURSE ---
Denture Model Maker assumes care of patient at this time. Pt is A/O x 3 with no reports of pain or acute distress at this time. Bed in low position and locked with side rails up x 2 with call light in reach of patient.
[2024-09-20 20:16] LABS: C-Reactive Protein 23.2 mg/dL (0.0-0.9); Procalcitonin 0.63 ng/ml (0.0-0.49); Troponin I < 0.020 ng/mL (0.0-0.045)
[2024-09-20 20:21] LABS: Bacteria,Urine Rare; Bilirubin,Urine Negative (Negative); Blood,Urine 1+ (Negative); Clarity,Urine Turbid (Clear/Hazy); Collection Type, Urine Catheter; Color,Urine Yellow (Lt Yel-Yel); Glucose, Urine Negative (Negative); Ketones,Urine Negative (Negative); Leukocyte Esterase,Urine Positive (Negative); Nitrite,Urine Negative (Negative); PH,Urine 5.5 (5.0-7.0); Protein,Urine 1+ (Neg - Trace); RBC,Urine 2 /hpf (0-3); Specific Gravity,Urine 1.023 (1.001-1.035); Squamous Epithelial Cell,Urine < 1 /hpf (0-5); WBC,Urine 189 /hpf (0-5)
[2024-09-20 20:59] VITALS: BP 116/65; PULSE 84; TEMP 38.3; O2SAT 96
--- NOTE | 2024-09-20 21:02 | PC.NURSE ---
Pt remains A/O x 3 with noted generalized weakness, pt states he has hx of rectal CA. Pt reports no acute distress at this time, bed in low position and locked with side rails up x 2 with call light in reach
[2024-09-20 21:11] LABS: Amphetamine/Methamp Scrn,U Negative (Negative); Barbiturate Screen,Urine Negative (Negative); Benzodiazepines Screen,Urine Negative (Negative); Benzoylecgonine Screen, Ur Negative (Negative); Fentanyl Screen,Urine Negative (Negative); Opiate Screen,Urine Positive (Negative); THC Screen,Urine Negative (Negative)
--- NOTE | 2024-09-20 23:33 | PD.RESHP ---
Documentation for date of: 09/20/24 HPI History of Present Illness Chief complaint: not feeling well History of present illness: Yoshi Holcomb is 64 yr male with PMH of Rectal cancer, BPH, smoking history, hypertension, hyperlipidemia, glaucoma who is presenting to ED due to generalized symptoms of feeling unwell . Patient was brought in by ambulance. Currently resides in a rehab facility. Stated that since past couple days he has been feeling some lethargy, decreased appetite, generalized symptoms of feeling unwell. Endorses dry cough. In regards to rectal cancer, patient has established care with oncology Dr. Paz and Dr. Adam. Surgery Dr. Forbes placed Port-A-Cath through left subclavian completed on 07/2024. Patient is aware of prognosis with knowledge of metastases to lungs, liver. He denies any chest pain, abdominal pain, blood in the stool, dysuria. Does endorse some constipation with last bowel movement past 2 days. Otherwise has normal bowel movements. In ED, vitals significant for temperature 102.7, other vital stable. Patient has leukocytosis WBC 19. Hemoglobin stable around 11. CMP unremarkable. Elevated CRP 23, troponins negative, elevated Pro-Salvador 0.63. UA reflecting UTI with positive leukocyte esterase, WBC 189. Imaging including CT head unremarkable, chest x-ray negative for underlying pathology. CT A/P showed numerous bilateral metastatic pulmonary nodules, right upper lobe pneumonia, adrenal masses bilaterally, negative SBO, rectal tumor mass measuring [address] Forbes was consulted due to rectal mass. Stated that he is aware of the mass and will evaluate patient. Patient to be admitted for IV antibiotics in setting of pneumonia. PMH: As noted above PSH: Portacatheter placement Family history: Unknown Social: Unemployed, homeless, extensive smoking history for past 20 years 1 pack/day. States that he quit 2 months ago. Denies drinking, denies illicit drug use. Meds: Atorvastatin, Flomax 0.4 mg, loratadine 10 mg, losartan 100 mg, Lyrica 50 mg, melatonin, Gilberts 5 mg as needed, Tylenol. Allergies: NKDA Review of Systems Review of Systems Systems Reviewed: All systems reviewed, normal except as documented Exam Vital Signs Temp Pulse Resp BP Pulse Ox O2 Del Method 101 F H 84 18 116/65 96 Room Air 09/20/24 20:59 09/20/24 20:59 09/20/24 16:00 09/20/24 20:59 09/20/24 20:59 09/20/24 20:59 Narrative Exam General: Male, unkempt, No acute distress, cooperative HEENT: NCAT, No JVD noted. Mucosa dry, poor oral hygiene. Pupils are equal and reactive to light bilaterally Cardiovascular: Normal S1 and S2. Regular rate and rhythm. Respiratory: no wheezing or crackles Abdomen: Soft, nontender, not distended, normal bowel sounds. Skin: Warm to touch, dry, no rashes noted, Port a cath in left upper chest Musculoskeletal: No gross injuries. Able to move all 4 extremities. No pitting edema Neuro: Alert and oriented x3. No focal neuro deficits. Psych: Normal affect and mood Results: Labs 09/20/24 13:38 09/20/24 13:38 Labs: Short CBC 09/20/24 Range/Units 13:38 WBC 19.4 H (3.8-10.6) Thou/mm3 Hgb 11.1 L (13.5-16.0) g/dL Hct 32.9 L (41.0-53.0) % Plt Count 211 D (140-440) Thou/mm3 BMP 09/20/24 13:38 Sodium 137 Potassium 4.9 Chloride 102 Carbon Dioxide 24.8 BUN 20 Creatinine 1.0 Glucose 119 H Calcium 8.4 Cardiac Enzymes 09/20/24 09/20/24 Range/Units 13:38 19:10 Troponin I < 0.020 < 0.020 (0.0-0.045) ng/mL Liver Function 09/20/24 Range/Units 13:38 Total Bilirubin 0.6 (0.3-1.2) mg/dL AST 24 (0-34) U/L ALT 16 (10-49) U/L Alkaline Phosphatase 113 (46-116) U/L Albumin 4.0 (3.4-4.8) gm/dL Urine 09/20/24 Range/Units 20:12 Urine Color Yellow (Lt Yel-Yel) Urine Clarity Turbid A (Clear/Hazy) Urine pH 5.5 (5.0-7.0) Ur Specific [place] 1.023 (1.001-1.035) Urine Protein 1+ A (Neg - Trace) Urine Glucose (UA) Negative (Negative) Quality Measures Quality Measures VTE prophylaxis Medications Home Medications and Allergies Home Medications ?Medication ?Instructions ?Recorded ?Confirmed ?Type latanoprost 0.005 % eye drops 1 drp ophthalmic (eye) QPM 03/09/18 08/18/24 History timolol maleate 0.5 % eye drops 1 drp ophthalmic (eye) BID 03/09/18 08/18/24 History atorvastatin 40 mg tablet 40 mg PO QDAY 06/23/24 08/18/24 History brimonidine 0.15 % eye drops 1 drp ophthalmic (eye) Q8H 06/23/24 08/18/24 History docusate sodium 100 mg capsule 100 mg PO QDAY 06/23/24 08/18/24 History hydrocortisone 2.5 % topical cream 06/23/24 History with perineal applicator (Proctozone-HC) melatonin 3 mg capsule 3 mg PO HS 08/17/24 08/18/24 History oxycodone 10 mg/0.5 mL oral 7.5 mg PO Q6H PRN pain 08/17/24 08/18/24 History syringe (FOR ORAL USE ONLY) pregabalin 50 mg capsule (Lyrica) 50 mg PO Q8H PRN pain 08/17/24 08/18/24 History Allergies Allergy/AdvReac Type Severity Reaction Status Date / Time No Known Allergies Allergy Verified 08/18/24 09:51 Visit Medications Acetaminophen (Acetaminophen 325 Mg Tablet) 650 mg PO Q6H PRN PRN Reason: Fever >100.3 or pain Stop: 10/20/24 23:26 Enoxaparin Sodium (Enoxaparin Sod Inj 40 Mg/0.4 Ml Syringe) 40 mg SC QDAY ERINN Stop: 10/05/24 08:59 Ondansetron HCl (Ondansetron Inj 2 Mg/Ml Inj 2 Ml) 4 mg IVP Q6H PRN; Protocol PRN Reason: NAUSEA OR VOMITING Stop: 10/20/24 23:26 Sennosides (Senna Tablet) 1 tab PO QDAY ERINN; Protocol Stop: 10/21/24 08:59 Discontinued Medications Acetaminophen (Acetaminophen 500 Mg Tablet) 1,000 mg PO X1 ONE Stop: 09/20/24 13:40 Last Admin: 09/20/24 13:59 Dose: 1,000 mg Assessment & Plan Plan Yoshi Holcomb is 64 yr male with PMH of Rectal cancer, BPH, smoking history, hypertension, hyperlipidemia, glaucoma who is presenting to ED due to generalized symptoms of feeling unwell . Patient was brought in by ambulance. Currently resides in a rehab facility. Surgery Dr. Forbes was consulted due to rectal mass. Stated that he is aware of the mass and will evaluate patient. Patient to be admitted for IV antibiotics in setting of pneumonia. #CAP #Leukocytosis Infection vs reactive to underlying cancer Leukocytosis 19, temperature 102.7, HR 90, RR 20. Found to have 2 or more SIRS criteria and was evaluated for sepsis. However, based upon further work-up, sepsis was ruled out. CT A/P showed numerous bilateral metastatic pulmonary nodules, right upper lobe pneumonia. CURB 65--1 -IV ceftriaxone 1g daily -IV azithromycin 500mg daily -blood cultures pending -duonebs PRN #Hx rectal cancer With mets to lungs, liver, adrenals as seen on imgaging. Rectal mass measuring 20mm. Last bowel movement 2 days ago, states otherwise they are regular. No blood in the stool. -consulted Dr. Forbes, appreciate recs -Start clear liquid diet. Advance as tolerated -Bowel regimen senna daily -Patient to follow-up outpatient with oncology. Stated that he will be pursuing for treatment with chemotherapy. #Normocytic anemia Hb 11, MCV 90 Most likely chronic in setting of patient's cancer. - Day team to consider full anemia workup - Follow-up outpatient #Hx BPH Denying any symptoms of dysuria, frequency, urgency. UA positive leukocyte esterase, WBC 189. ? Appears that patient takes Flomax - Resume once med rec completed #Hx HTN Takes losartan 100 mg daily, atorvastatin 40 mg daily per chart review - Resume once med rec completed Health maintenance: Dispo: med surg, IV abx PNA FEN: clear liquid DVT prophylaxis: Lovenox CODE STATUS: Full code The patient's management plan was discussed with my attending physician Dr. Santoro. Katherine Veliz, PGY-1 Attending Provider Attestation/Addendum I have examined the patient, reviewed labs and imaging findings, discussed the case with the resident(s), and reviewed entered orders. I agree with the plan of care as outlined in this note, with these additional summaries/recommendations: After examination of the patient and review of the clinical data, I feel that this patient needs admission to the hospital for further treatment and evaluation. Patient is a 64-year-old male with a medical history of metastatic rectal cancer, BPH, history of shingles, hyperlipidemia, primary hypertension, GERD, and chronic pain who presents to [facility] emergency department on 09/20/2024 with original chief complaint of altered mental status. Patient seen at bedside. He was originally suspected of having acute encephalopathy in the emergency department although he appears at baseline mental status during my evaluation in the emergency room and is alert and oriented x 3 and answering questions appropriately. CT head negative for acute hemorrhage, mass effect or midline shift. Patient underwent chest/abdomen/pelvis CT which was significant for numerous bilateral metastatic pulmonary nodules, right upper lobe pneumonia, bilateral adrenal metastatic masses, rectal tumor mass measuring up to 20 mm in thickness posterior wall of the rectum and extending proximal to distal 7 cm, and Osseous metastatic disease with bony erosion involving the fifth sacral segment and first coccygeal segment. Patient diagnosed with community-acquired pneumonia and will be admitted to the hospital under observation given that he has severe leukocytosis, elevated procalcitonin, unrelenting fever, and immunocompromise state from underlying malignancy. Possible fever is more related to underlying malignancy versus pneumonia. Tylenol as needed for fever. Start IV antibiotics. Repeat hematology panel in AM. If patient continues to improve then he can likely be discharged in the next 24 to 48 hours. Patient unfortunately has underlying metastatic rectal cancer and prognosis is guarded. He is advised to continue to follow-up at oncology center although he does appear to have some interest in maybe pursuing hospice outpatient. Patient updated on the plan and in agreement. All questions answered to satisfaction. Repeat hematology and chemistry panel in AM. Please see residents note for additional details and management. Dr. Maude MD
[2024-09-21] VITALS (8 sets, daily range): BP systolic 101–138; BP diastolic 61–75; PULSE 63–81; RESP 16–96; TEMP 36.3–36.9; O2SAT 95–97; BMI 23.2
[2024-09-21 00:22] LABS: COVID-19 Antigen (In-House) Negative (Negative)
[2024-09-21] MEDS: cefTRIAXone/D5w 1gm IV premix 1 GM/50 ML BAG IV ×2 (01:20→22:21)
[2024-09-21] MEDS: AZITHROMYCIN INJ 500 MG in SODIUM CHLORIDE 0.9% 250 ML 250 ML 250 MG IV (02:08)
--- NOTE | 2024-09-21 03:44 | PC.NURSE ---
REPORT CALLED TO WILL-RN
[2024-09-21] MEDS: oxyCODONE/APAP 5/325 TABLET 2 TAB PO ×3 (04:37→17:24)
[2024-09-21 06:53] LABS: Basophils % (Auto) 0 % (0-2.5); Eosinophils # (Auto) 0.2 Thou/mm3 (0.0-0.5); Eosinophils % (Auto) 2 % (0-10); Hematocrit 29.4 % (41.0-53.0); Hemoglobin 9.9 g/dL (13.5-16.0); Immature Granulocytes % (Auto) 1 % (0-0); Immature Granulocytes Auto 0.09 Thou/mm3 (0.00-0.00); Lymphocytes % (Auto) 9 % (10-50); Mean Corpuscular HGB Conc 33.7 g/dl (31.0-37.0); Mean Corpuscular Hemoglobin 30.7 pg (25.0-35.0); Mean Corpuscular Volume 91 fL (80-100); Monocytes # (Auto) 1.1 Thou/mm3 (0.0-0.8); Monocytes % (Auto) 10 % (0-12); Neutrophils # (Auto) 9.3 Thou/mm3 (1.8-7.7); Neutrophils % (Auto) 79 % (37-80); Nucleated Red Blood Cell % 0 /100 WBC (0); Platelet Count 198 Thou/mm3 (140-440); RDW Standard Deviation 42.1 fL (35.1-43.9); Red Blood Count 3.23 Miln/mm3 (4.50-5.90); White Blood Count 11.7 Thou/mm3 (3.8-10.6)
[2024-09-21 07:14] LABS: Alanine Aminotransferase 13 U/L (10-49); Albumin, Serum 3.6 gm/dL (3.4-4.8); Albumin/Globulin Ratio 1.6 (1.2-2.2); Alkaline Phosphatase 93 U/L (46-116); Anion Gap 10 (7-16); Aspartate Amino Transferase 21 U/L (0-34); BUN/Creatinine Ratio 20 Ratio (12-20); Bilirubin,Total 0.5 mg/dL (0.3-1.2); Blood Urea Nitrogen 16 mg/dL (9-23); Calcium 8.2 mg/dL (8.3-10.6); Calcium (Corrected) 8.5 mg/dL (8.5-10.1); Carbon Dioxide 22.9 mMol/L (20.0-31.0); Chloride 105 mMol/L (98-107); Creatinine (Component) 0.8 mg/dL (0.6-1.3); Estimated Creatinine Clearance 84.2 mL/min (>60); Globulin 2.3 gm/dL (2.3-3.5); Glucose 117 mg/dL (74-106); Magnesium 2.1 mg/dL (1.6-2.6); Osmolality,Calculated 277 (275-295); Phosphorous 3.1 mg/dL (2.4-5.1); Sodium 138 mMol/L (136-145); Total Protein 5.9 gm/dL (5.7-8.2); eGFR > 60 See Note
[2024-09-21] MEDS: SENNA TABLET 1 TAB PO (08:08)
[2024-09-21] MEDS: ENOXAPARIN SOD INJ 40 MG/0.4 ML SYRINGE SC (08:08)
--- NOTE | 2024-09-21 09:08 | ESCONSULT_ITS ---
HPI Data of Consult Requesting Physician: Asher Santoro MD Primary Care Provider: Physician No Primary/Family Consult Narrative Reason for consult: Stage IV colorectal cancer History of present illness: Patient is a 64-year-old gentleman resident of [facility], with diagnosis of stage IV colorectal cancer with lung mets, liver mets, bone mets. Patient followed at the cancer treatment center and Dr. Paz has scheduled FOLFOX chemo beginning next month. Patient has been experiencing malaise cough, chest abdomen pelvis 09/20/2024 revealed numerous bilateral pulmonary nodules right upper lobe pneumonia along with rectal mass and bone mets.Labs 09/20/2024 shows WBC 19.4 hemoglobin 11.1 platelets 211. Antibiotics started and this a.m. 11.7 WBC. Patient referred for oncological consultation. cc:: cc: Asher Santoro MD Past Medical History Social History SOCIAL: History of heavy smoking still smokes 1 pack/day resident of [facility]. Past Medical History Comments PMH COMMENT: History of hypertension GI disorders bronchitis cataracts glaucoma chickenpox shingles Meds Home Medications and Allergies Home Medications ?Medication ?Instructions ?Recorded ?Confirmed ?Type latanoprost 0.005 % eye drops 1 drp ophthalmic (eye) Q PM 03/09/18 09/21/24 History timolol maleate 0.5 % eye drops 1 drp ophthalmic (eye) BID 03/09/18 09/21/24 History atorvastatin 40 mg tablet 40 mg PO QDAY 06/23/2409/21 History brimonidine 0.15 % eye drops 1 drp ophthalmic (eye) Q8 H 06/23/24 09/21/24 History docusate sodium 100 mg capsule 100 mg PO QDAY 06/23/24 09/21/24 History hydrocortisone 2.5 % topical cream 1 applic topical BI D 06/23/24 09/21/24 History with perineal applicator (Proctozone-HC) melatonin 3 mg capsule 3 mg PO HS 08/17/24 09/21/24 History oxycodone 10 mg/0.5 mL oral 7.5 mg PO Q6H PRN pain 09/21/24 History syringe (FOR ORAL USE ONLY) pregabalin 50 mg capsule (Lyrica) 50 mg PO Q8H PRN birgit n 08/17/24 09/21/24 History Allergies Allergy/AdvReac Type Severity Reaction Status Date / Time No Known Allergies Allergy Verified 08/18/24 09:51 Exam Vital Signs Temp Pulse Resp BP Pulse Ox O2 Del Method 97.3 F 64 18 101/62 96 Room Air 09/21/24 08:00 09/21/24 08:00 09/21/24 08:00 09/21/24 08:00 09/21/24 08:00 09/21/24 08:00 Narrative Exam Appearing comfortable lying in no acute distress Results Labs 09/21/24 06:35 09/21/24 06:35 Labs: Short CBC 09/20/24 09/21/24 Range/Units 13:38 06:35 WBC 19.4 H 11.7 H D (3.8-10.6) Thou/mm3 Hgb 11.1 L 9.9 L (13.5-16.0) g/dL Hct 32.9 L 29.4 L (41.0-53.0) % Plt Count 211 D 198 (140-440) Thou/mm3 BMP 09/20/24 09/21/24 13:38 06:35 Sodium 137 138 Potassium 4.9 4.0 D Chloride 102 105 Carbon Dioxide 24.8 22.9 BUN 20 16 Creatinine 1.0 0.8 Glucose 119 H 117 H Calcium 8.4 8.2 L Cardiac Enzymes 09/20/24 09/20/24 Range/Units 13:38 19:10 Troponin I < 0.020 < 0.020 (0.0-0.045) ng/mL Liver Function 09/20/24 09/21/24 Range/Units 13:38 06:35 Total Bilirubin 0.6 0.5 (0.3-1.2) mg/dL AST 24 21 (0-34) U/L ALT 16 13 (10-49) U/L Alkaline Phosphatase 113 93 D (46-116) U/L Albumin 4.0 3.6 (3.4-4.8) gm/dL Urine 09/20/24 Range/Units 20:12 Urine Color Yellow (Lt Yel-Yel) Urine Clarity Turbid A (Clear/Hazy) Urine pH 5.5 (5.0-7.0) Ur Specific [place] 1.023 (1.001-1.035) Urine Protein 1+ A (Neg - Trace) Urine Glucose (UA) Negative (Negative) Assessment and Plan Additional Assessment & Plan Additional Plan: 1. Stage IV colorectal cancer, lung mets abdominal mets bone mets 2. Scheduled for chemo with Dr. Julius GODFREYFOX beginning next month. 3. Admitted with leukocytosis right upper lobe pneumonia. Clinically appears to be improving. 4. Will follow patient upon discharge. Thank you for allowing me to evaluate this patient.
--- NOTE | 2024-09-21 10:34 | PD.SURCONS ---
HPI Consult details Consult date: 09/21/24 Reason for consultation narrative: ER physician requested consult on this patient who has rectal tumor. I do not know what my role would be as a surgeon in this case History of present illness: Patient has a documented rectal cancer for which she underwent insertion of a Port-A-Cath and awaiting chemoradiation Meds Home Medications and Allergies Home Medications ?Medication ?Instructions ?Recorded ?Confirmed ?Type latanoprost 0.005 % eye drops 1 drp ophthalmic (eye) QPM 03/09/18 09/21/24 History timolol maleate 0.5 % eye drops 1 drp ophthalmic (eye) BID 03/09/18 09/21/24 History atorvastatin 40 mg tablet 40 mg PO QDAY 06/23/24 09/21/24 History brimonidine 0.15 % eye drops 1 drp ophthalmic (eye) Q8H 06/23/24 09/21/24 History docusate sodium 100 mg capsule 100 mg PO QDAY 06/23/24 09/21/24 History hydrocortisone 2.5 % topical cream 1 applic topical BID 06/23/24 09/21/24 History with perineal applicator (Proctozone-HC) melatonin 3 mg capsule 3 mg PO HS 08/17/24 09/21/24 History oxycodone 10 mg/0.5 mL oral 7.5 mg PO Q6H PRN pain 08/17/24 09/21/24 History syringe (FOR ORAL USE ONLY) pregabalin 50 mg capsule (Lyrica) 50 mg PO Q8H PRN pain 08/17/24 09/21/24 History Allergies Allergy/AdvReac Type Severity Reaction Status Date / Time No Known Allergies Allergy Verified 08/18/24 09:51 Exam Vital Signs Temp Pulse Resp BP Pulse Ox O2 Del Method 97.3 F 64 18 101/62 96 Room Air 09/21/24 08:00 09/21/24 08:00 09/21/24 08:00 09/21/24 08:00 09/21/24 08:00 09/21/24 08:00 Assessment & Plan Additional Assessment Additional comments: Impression: Patient seems to have metastatic rectal cancer and he does not want any further therapy Plan Plan: We shall discuss with the patient about further treatment. It seems he does not want any radiation or chemo therapy. I have no role to play in his care at this time
--- NOTE | 2024-09-21 11:09 | PC.SS ---
Addendum entered by Maria Del Carmen Garcias 09/21/24 12:19: SS received call from Katja at [facility] who explained they (Katja and Contact Center Manager form [facility]) met with pt at bedside. Katja from [facility] explained pt is requesting to return to [facility] and they will start Pallative Care Services at [facility]. Pt is requesting to continue with rehab at [facility] to build strength and eventually return home. Original Note: Pt is from [facility]. SS was informed by physician pt is requesting Hospice Services. Pt is alert/oriented. SS met with pt who confirmed he is requesting Hospice and does not have preference for Hospice Agencies. SS spoke to Katja from [facility] who explained pt recently got permacath placed and was starting his first treatment next week. Per Katja, they can start pt on Hospice Services at their facility if pt decides not to continue with chemo treatment. Katja from [facility] is going to talk to pt at bedside. Pt is aware.
[2024-09-21] MEDS: NICOTINE PATCH 14 MG/24 HR PATCH.TD24 TOP (11:32)
--- NOTE | 2024-09-21 12:27 | PC.SS ---
SS met with pt regarding his d/c plan. Pt is blind. Pt was admitted fro Pneumonia. Pt is from [facility] and will return upon dc. Pt confirmed demographic and contact information is correct on his facesheet. 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 Pt refused to name an emergency contact. SS explained the importance of having an emergency contact and pt kept stating he does not have any family or friends. SS called Katja at [facility] who confirmed pt is his own responsible green party. Pt transfers with assistance into wheelchair. Pt requires assistance with ADLs. D/C Plan: Return to [facility] Next of Kin: Self
--- NOTE | 2024-09-21 15:39 | ESPR_ITS ---
Documentation for date of: 09/21/24 Subjective Subjective Interval history: Patient seen and examined at bedside this a.m. Complained of 9/10 constant rectal pain with radiation to his legs. Vitals within normal limits. Hb 9.9, WBC 11.7, PLT 198, ESR 51, CRP 23.2 and procalcitonin 0.63. CMP within normal limits. Currently on ceftriaxone and azithromycin IV for pneumonia. Discussed the option of hospice with the patient and he says that when he returns to his rehab facility he will initiate palliative care. CODE STATUS was discussed with patient and he wants to be switched to limited code with no intubation or artificial measures. Radiation oncologist, Dr. Adam was consulted for pain control recommendations Exam Vital Signs Temp Pulse Resp BP Pulse Ox O2 Del Method 97.8 F 79 18 138/70 H 97 Room Air 09/21/24 12:00 09/21/24 12:00 09/21/24 12:00 09/21/24 12:00 09/21/24 12:00 09/21/24 12:00 Narrative Exam General: Male, unkempt, No acute distress, cooperative. Cachectic, bitemporal wasting. HEENT: NCAT, No JVD noted. Mucosa dry, poor oral hygiene. Pupils are equal and reactive to light bilaterally Cardiovascular: Normal S1 and S2. Regular rate and rhythm. Respiratory: no wheezing or crackles Abdomen: Soft, nontender, not distended, normal bowel sounds. Skin: Warm to touch, dry, no rashes noted, Port a cath in left upper chest Musculoskeletal: No gross injuries. Able to move all 4 extremities. No pitting edema Neuro: Alert and oriented x3. No focal neuro deficits. Psych: Normal affect and mood Objective Labs 09/22/24 05:17 09/22/24 05:17 Labs: Laboratory Results - last 24 hr 09/20/24 09/20/24 09/20/24 19:10 20:10 20:12 WBC RBC Hgb Hct MCV MCH MCHC RDW Std Deviation Plt Count Neut % (Auto) Lymph % (Auto) Butts % (Auto) Eos % (Auto) Baso % (Auto) Neut # (Auto) Lymph # (Auto) Butts # (Auto) Eos # (Auto) Baso # (Auto) Immature Gran # (Auto) Absolute Nucleated RBC Immature Gran % Nucleated RBC % ESR 51 H Sodium Potassium Chloride Carbon Dioxide Anion Gap BUN Creatinine Estim Creat Clear Calc eGFR BUN/Creatinine Ratio Glucose Calculated Osmolality Calcium Corrected Calcium Phosphorus Magnesium Total Bilirubin AST ALT Alkaline Phosphatase Troponin I < 0.020 C-Reactive Prot, Quant 23.2 H Total Protein Albumin Globulin Albumin/Globulin Ratio Procalcitonin 0.63 H Ur Collection Type Catheter Urine Color Yellow Urine Clarity Turbid A Urine pH 5.5 Ur Specific [place] 1.023 Urine Protein 1+ A Urine Glucose (UA) Negative Urine Ketones Negative Urine Blood 1+ A Urine Nitrite Negative Urine Bilirubin Negative Urine Urobilinogen (Auto) 3.0 Ur Leukocyte Esterase Positive Urine RBC 2 Urine WBC 189 H Ur Squamous Epith Cells < 1 Urine Bacteria Rare Urine Opiates Screen Positive A Urine Fentanyl Screen Negative Ur Barbiturates Screen Negative U Amphetamin/Meth Scrn Negative U Benzodiazepines Scrn Negative U Cocaine Metab Screen Negative U Marijuana (THC) Screen Negative SARS-CoV-2 Ag (Rapid) 09/20/24 09/21/24 23:54 06:35 WBC 11.7 H D RBC 3.23 L Hgb 9.9 L Hct 29.4 L MCV 91 MCH 30.7 MCHC 33.7 RDW Std Deviation 42.1 Plt Count 198 Neut % (Auto) 79 Lymph % (Auto) 9 L Butts % (Auto) 10 Eos % (Auto) 2 Baso % (Auto) 0 Neut # (Auto) 9.3 H Lymph # (Auto) 1.0 Butts # (Auto) 1.1 H Eos # (Auto) 0.2 Baso # (Auto) 0.0 Immature Gran # (Auto) 0.09 H Absolute Nucleated RBC 0.00 Immature Gran % 1 H Nucleated RBC % 0 ESR Sodium 138 Potassium 4.0 D Chloride 105 Carbon Dioxide 22.9 Anion Gap 10 BUN 16 Creatinine 0.8 Estim Creat Clear Calc 84.2 eGFR > 60 BUN/Creatinine Ratio 20 Glucose 117 H Calculated Osmolality 277 Calcium 8.2 L Corrected Calcium 8.5 Phosphorus 3.1 Magnesium 2.1 Total Bilirubin 0.5 AST 21 ALT 13 Alkaline Phosphatase 93 D Troponin I C-Reactive Prot, Quant Total Protein 5.9 Albumin 3.6 Globulin 2.3 Albumin/Globulin Ratio 1.6 Procalcitonin Ur Collection Type Urine Color Urine Clarity Urine pH Ur Specific [place] Urine Protein Urine Glucose (UA) Urine Ketones Urine Blood Urine Nitrite Urine Bilirubin Urine Urobilinogen (Auto) Ur Leukocyte Esterase Urine RBC Urine WBC Ur Squamous Epith Cells Urine Bacteria Urine Opiates Screen Urine Fentanyl Screen Ur Barbiturates Screen U Amphetamin/Meth Scrn U Benzodiazepines Scrn U Cocaine Metab Screen U Marijuana (THC) Screen SARS-CoV-2 Ag (Rapid) Negative Quality Measures Quality Measures VTE prophylaxis Assessment & Plan Assessment Current Active Medications: Generic Name Dose Route Start Last Admin Trade Name Freq PRN Reason Stop Dose Admin Acetaminophen 650 mg 09/21/24 03:53 Acetaminophen 325 Mg Tablet PO 10/20/24 23:26 Q6H PRN PAIN SCALE 1-3 (mild Enoxaparin Sodium 40 mg 09/21/24 09:00 09/21/24 08:08 Enoxaparin Sod Inj 40 Mg/0.4 Ml Syringe SC 10/05/24 08:59 40 mg QDAY ERINN Administration Guaifenesin 200 mg 09/21/24 11:20 Guaifenesin Syrup 200 Mg/10 Ml Udc PO 10/21/24 11:19 Q4H PRN cold symptoms Protocol Ceftriaxone Sodium/Dextrose 1 gm in 50 mls @ 100 mls/hr 09/21/24 21:00 Rocephin/D5w 1gm Iv Premix IV 09/28/24 20:59 QDAY@2100 [facility] Latanoprost 1 drop 09/21/24 21:00 Latanoprost Op Mamta 0.005% 2.5 Ml Btl BOTH EYES 10/21/24 20:59 QPM [facility] Morphine Sulfate 2 mg 09/21/24 09:55 Morphine Sulf Inj 10 Mg/Ml Vial IVP 09/26/24 09:54 Q4HR PRN BREAKTHROUGH PAIN Nicotine 14 mg 09/21/24 11:30 09/21/24 11:32 Nicotine Patch 14 Mg/24 Hr Patch.Td24 TOP 10/21/24 11:29 14 mg QDAY ERINN Administration Home Medication- 1 drop 09/21/24 11:30 09/21/24 11:33 Please Speak With BOTH EYES 10/21/24 11:29 Not Given Patient Caregiver To Q8H ERINN Have Rx Brought To [facility] Ondansetron HCl 4 mg 09/20/24 23:27 Ondansetron Inj 2 Mg/Ml Inj 2 Ml IVP 10/20/24 23:26 Q6H PRN NAUSEA OR VOMITING Protocol Oxycodone/Acetaminophen 2 tab 09/21/24 04:00 05/29/25 11:32 Oxycodone/Apap 5/325 Tablet PO 09/26/24 03:59 2 tab Q6HR ERINN Administration Pregabalin 50 mg 09/21/24 14:00 09/21/24 15:22 Pregabalin 50 Mg Capsule PO 10/21/24 13:59 Not Given TID ERINN Sennosides 1 tab 09/21/24 09:00 09/21/24 08:08 Senna Tablet PO 10/21/24 08:59 1 tab QDAY ERINN Administration Protocol Plan Yoshi Holcomb is 64 yr male with PMH of Rectal cancer, BPH, smoking history, hypertension, hyperlipidemia, glaucoma who is presenting to ED due to generalized symptoms of feeling unwell . Patient was brought in by ambulance. Currently resides in a rehab facility. Surgery Dr. Forbes was consulted due to rectal mass. Stated that he is aware of the mass and will evaluate patient. Patient to be admitted for IV antibiotics in setting of pneumonia. #CAP #Leukocytosis Infection vs reactive to underlying cancer Leukocytosis 19, temperature 102.7, HR 90, RR 20. Found to have 2 or more SIRS criteria and was evaluated for sepsis. However, based upon further work-up, sepsis was ruled out. CT A/P showed numerous bilateral metastatic pulmonary nodules, right upper lobe pneumonia. CURB 65--1 Plan: - Continue IV ceftriaxone 1g daily started on [09/20? - Continue IV azithromycin 500mg daily started on [09/20? - Pending blood and sputum cultures pending - duonebs PRN #Hx rectal cancer With mets to lungs, liver, adrenals as seen on imgaging. Rectal mass measuring 20mm. Last bowel movement 2 days ago, states otherwise they are regular. No blood in the stool. Patient seen and examined at bedside this a.m. Complained of 9/10 constant rectal pain with radiation to his legs. Vitals within normal limits. Hb 9.9, WBC 11.7, PLT 198, ESR 51, CRP 23.2 and procalcitonin 0.63. CMP within normal limits. Currently on ceftriaxone and azithromycin IV for pneumonia. Discussed the option of hospice with the patient and he says that when he returns to his rehab facility he will initiate palliative care. CODE STATUS was discussed with patient and he wants to be switched to limited code with no intubation or artificial measures. Radiation oncologist, Dr. Adam was consulted for pain control recommendations Plan: ? Will keep patient overnight for treatment of pneumonia. ? Will discharge to his rehab facility tomorrow to follow-up for palliative care. ? At this time patient does not wish for any chemo or radiotherapy as per his wishes ? Radiation oncology Dr. Adam consulted. Appreciate recommendations #Normocytic anemia Hb 11, MCV 90 Most likely chronic in setting of patient's cancer. - Day team to consider full anemia workup - Follow-up outpatient #Hx BPH Denying any symptoms of dysuria, frequency, urgency. UA positive leukocyte esterase, WBC 189. ? Appears that patient takes Flomax - Resume once med rec completed #Hx HTN Takes losartan 100 mg daily, atorvastatin 40 mg daily per chart review - Resume once med rec completed #History of glaucoma Plan: ? Home eyedrops, latanoprost resumed. Health maintenance: Dispo: med surg, IV abx PNA FEN: clear liquid DVT prophylaxis: Lovenox CODE STATUS: Limited code. No intubation Plan of care discussed with Attending Dr. Chang and PGY2 Dr. Ian Coleman MD PGY 1 Disclaimer: This note was dictated by speech recognition. Minor errors in bead inspector may be present due to voice recognition software. Attending Provider Attestation/Addendum I reviewed labs, imaging, EKG, home medications and prior available records. Face to face evaluation was performed by me. I have personally examined the patient and discussed assessment and plan with the IM team. I reviewed the resident note and agree with the plan with exceptions as below. Sepsis secondary to right upper lobe pneumonia Acute hypoxic respiratory failure Rectal cancer with metastases Pulmonary metastasis Essential hypertension BPH Continue ceftriaxone/azithromycin Management of pain as needed Discussed with patient and social secretary: He is interested in going home with hospice. Will discharge back to his rehab facility after adequate pain management. They will provide palliative care to their and can transition to home with hospice
--- NOTE | 2024-09-21 15:46 | EVENTNT_ITS ---
Documentation for date of: 09/21/24 Event Note Event Note: Discussed with patient's risks versus benefits of full code including chest compressions, possible intubation and life preserving measures via artificial means. At this time patient only wishes to have chest compressions. Plan: ? Switch patient's CODE STATUS to limited code, no intubation. Plan of care discussed with Attending Dr. Chang and PGY2 Dr. Ian Coleman MD PGY 1 Disclaimer: This note was dictated by speech recognition. Minor errors in forest pathology associate professor may be present due to voice recognition software.
[2024-09-21] MEDS: PREGABALIN 50 MG CAPSULE PO ×2 (17:25→22:00)
[2024-09-21] MEDS: LATANOPROST OP SOL 0.005% 2.5 ML BTL 1 DROP BOTH EYES (22:01)
[2024-09-22] VITALS: BP 129/76; PULSE 76; RESP 20; TEMP 36.8; O2SAT 96
[2024-09-22] MEDS: oxyCODONE/APAP 5/325 TABLET 2 TAB PO ×4 (00:15→17:57)
[2024-09-22 04:00] VITALS: BP 118/51; PULSE 67; RESP 20; TEMP 36.6; O2SAT 94
[2024-09-22] MEDS: PREGABALIN 50 MG CAPSULE PO ×2 (06:09→17:57)
[2024-09-22 06:28] LABS: Basophils % (Auto) 1 % (0-2.5); Eosinophils # (Auto) 0.1 Thou/mm3 (0.0-0.5); Eosinophils % (Auto) 2 % (0-10); Hemoglobin 10.5 g/dL (13.5-16.0); Immature Granulocytes % (Auto) 2 % (0-0); Immature Granulocytes Auto 0.13 Thou/mm3 (0.00-0.00); Lymphocytes # (Auto) 1.1 Thou/mm3 (1.0-4.8); Lymphocytes % (Auto) 19 % (10-50); Mean Corpuscular HGB Conc 33.9 g/dl (31.0-37.0); Mean Corpuscular Hemoglobin 30.3 pg (25.0-35.0); Mean Corpuscular Volume 89 fL (80-100); Monocytes # (Auto) 0.6 Thou/mm3 (0.0-0.8); Monocytes % (Auto) 10 % (0-12); Neutrophils # (Auto) 3.9 Thou/mm3 (1.8-7.7); Neutrophils % (Auto) 66 % (37-80); Nucleated Red Blood Cell % 0 /100 WBC (0); Platelet Count 195 Thou/mm3 (140-440); RDW Standard Deviation 41.2 fL (35.1-43.9); Red Blood Count 3.47 Miln/mm3 (4.50-5.90); White Blood Count 5.9 Thou/mm3 (3.8-10.6)
[2024-09-22 06:41] LABS: Alanine Aminotransferase 18 U/L (10-49); Albumin, Serum 3.7 gm/dL (3.4-4.8); Albumin/Globulin Ratio 1.5 (1.2-2.2); Alkaline Phosphatase 97 U/L (46-116); Anion Gap 10 (7-16); Aspartate Amino Transferase 28 U/L (0-34); BUN/Creatinine Ratio 16 Ratio (12-20); Bilirubin,Total 0.4 mg/dL (0.3-1.2); Blood Urea Nitrogen 13 mg/dL (9-23); Calcium 8.9 mg/dL (8.3-10.6); Calcium (Corrected) 9.1 mg/dL (8.5-10.1); Chloride 103 mMol/L (98-107); Creatinine (Component) 0.8 mg/dL (0.6-1.3); Estimated Creatinine Clearance 84.2 mL/min (>60); Globulin 2.5 gm/dL (2.3-3.5); Glucose 115 mg/dL (74-106); Osmolality,Calculated 276 (275-295); Potassium 4.1 mMol/L (3.4-5.1); Sodium 138 mMol/L (136-145); Total Protein 6.2 gm/dL (5.7-8.2); eGFR > 60 See Note
[2024-09-22 08:00] VITALS: BP 108/59; PULSE 71; RESP 17; TEMP 37; O2SAT 93
[2024-09-22 12:00] VITALS: BP 122/62; PULSE 72; RESP 17; TEMP 36.9; O2SAT 96
--- NOTE | 2024-09-22 12:31 | PC.SS ---
[facility] using [employer].
--- NOTE | 2024-09-22 14:08 | PD.RESDS ---
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 Patient was brought in by ambulance. Currently resides in a rehab facility. Surgery Dr. Forbes was consulted due to rectal mass. Stated that he is aware of the mass and will evaluate patient. On CT A/P right upper lobe pneumonia was seen. Patient to be admitted for IV antibiotics in setting of pneumonia. With regards to patient's pneumonia he was treated with ceftriaxone and azithromycin IV from [09/20 - 09/22. Blood cultures grew GNR in 1 bottle, likely contaminant and urine culture also grew GNR. With regards to his rectal cancer, patient says that he wishes for palliative care when he goes back to [facility]. He was evaluated inpatient by radiation oncologist Dr. Adam for recommendations about pain control, patient was also given the option of palliative radiotherapy if he wishes. All patient's labs are now returning to his baseline. Patient is now clinically stable and fit for discharge to rehab with palliative care. Discharge diagnoses: 1. Community-acquired pneumonia?resolving 2. Leukocytosis?resolved 3. Metastatic rectal cancer?chronic 4. Normocytic anemia?chronic 5. History of BPH 6. Primary hypertension?chronic 7. Glaucoma?chronic Discharge plan: ? We have put a hold on your hydrocortisone cream. Do not take until you see your primary doctor ? We have put a hold on your blood pressure medication losartan. Your blood pressures have been within normal range while in the hospital. ? We have started you on an antibiotic amoxicillin for the infection in your urine and your pneumonia. Take 1 tablet twice a day for the next 7 days. ? We have started you on an antibiotic azithromycin for your pneumonia. Take 1 tablet once a day for the next 2 days. ? Continue the rest of your home medication as before ? If you wish you can follow-up with Dr. Adam, radiation oncologist and Dr. Paz, heme oncologist as outpatient. - Follow up with your primary care physician within 1 week of discharge. If you do not have a primary care physician, please follow up with the [facility] Residents clinic ([phone]) ? If you experience any new, worsening or persistent symptoms either call your primary doctor, or dial 911 or present to the emergency department. We are grateful to be able to participate in Mr. Holcomb's care. We wish him the best. Plan of care discussed with Attending Dr. Charlene Coleman MD PGY 1 Disclaimer: This note was dictated by speech recognition. Minor errors in call center support representative may be present due to voice recognition software. Time Spent with Patient Time attestation: Total time spent providing and/or coordinating discharge services: Time spent: Greater than 30 minutes (38) Exam Vital Signs Temp Pulse Resp BP Pulse Ox O2 Del Method 98.4 F 72 17 122/62 96 Room Air 09/22/24 12:09/22/24 12:09/22/24 12:09/22/24 12:09/22/24 12:09/22/24 12:00 Narrative Exam General: Male, unkempt, No acute distress, cooperative. Cachectic, bitemporal wasting. HEENT: NCAT, No JVD noted. Mucosa dry, poor oral hygiene. Pupils are equal and reactive to light bilaterally Cardiovascular: Normal S1 and S2. Regular rate and rhythm. Respiratory: no wheezing or crackles Abdomen: Soft, nontender, not distended, normal bowel sounds. Skin: Warm to touch, dry, no rashes noted, Port a cath in left upper chest Musculoskeletal: No gross injuries. Able to move all 4 extremities. No pitting edema Neuro: Alert and oriented x3. No focal neuro deficits. Psych: Normal affect and mood Discharge Plan Plan Patient Disposition: Xfer Skilled Nsg Fac (SNF) Disposition Comment: [facility] with palliative care Care Plan Goals: ? We have put a hold on your hydrocortisone cream. Do not take until you see your primary doctor ? We have put a hold on your blood pressure medication losartan. Your blood pressures have been within normal range while in the hospital. ? We have started you on an antibiotic amoxicillin for the infection in your urine and your pneumonia. Take 1 tablet twice a day for the next 7 days. ? We have started you on an antibiotic azithromycin for your pneumonia. Take 1 tablet once a day for the next 2 days. ? Continue the rest of your home medication as before ? Continue palliative care at [facility] ? If you wish you can follow-up with Dr. Adam, radiation oncologist and Dr. Paz, heme oncologist as outpatient. - Follow up with your primary care physician within 1 week of discharge. If you do not have a primary care physician, please follow up with the [facility] Residents clinic ([phone]) ? If you experience any new, worsening or persistent symptoms either call your palliative care doctor. Prescriptions/Referrals Prescriptions/Med Rec: New amoxicillin-pot clavulanate 875-125 mg tablet 1 tab PO BID 7 Days Qty: 14 0RF azithromycin 500 mg tablet 500 mg PO QDAY 2 Days Qty: 2 0RF Rx Instructions: start on day 2 of therapy Continued Claritin Liqui-Gel 10 mg capsule 10 mg PO QDAY Qty: 10 0RF guaifenesin 100 mg/5 mL liquid 200 mg PO Q4H PRN (Reason: cold symptoms) Qty: 237 0RF latanoprost 0.005 % Drops 1 drp OPHTHALMIC (EYE) QPM timolol maleate 0.5 % Drops 1 drp OPHTHALMIC (EYE) BID brimonidine 0.15 % drops 1 drp OPHTHALMIC (EYE) Q8H Patient Comments: INSTILL 1 DROP INTO BOTH EYES EVERY 8 HOURS FOR 30 DAYS atorvastatin 40 mg tablet 40 mg PO QDAY docusate sodium 100 mg capsule 100 mg PO QDAY tamsulosin 0.4 mg Capsule 0.4 mg PO QDAY Qty: 60 0RF pantoprazole 40 mg Tablet,Delayed Release (Dr/Ec) 40 mg PO QDAY Qty: 60 0RF nicotine 14 mg/24 hr Patch 24 Hour 14 mg top QDAY Qty: 7 0RF pregabalin [Lyrica] 50 mg capsule 50 mg PO Q8H PRN (Reason: pain) oxycodone 10 mg/0.5 mL syringe 7.5 mg PO Q6H PRN (Reason: pain) loperamide 2 mg capsule 2 mg PO Q6H PRN (Reason: loose stool) Qty: 30 0RF Changed melatonin 3 mg capsule 3 mg PO PRN PRN (Reason: sleep) Qty: 30 0RF Held hydrocortisone [Proctozone-HC] 2.5 % cream with perineal applicator 1 applic topical BID Hold Instructions: Hold until you see your primary doctor losartan 100 mg tablet 100 mg PO QDAY Qty: 90 0RF Hold Instructions: Hold until you see your primary doctor. your blood pressure in hospital were normal Rx Instructions: Hold if SBP below 100 and DBP below 60 mmHg Referrals: Yury Madrid MD [Physician] - Jose Roberto Adam MD [Physician] - No Primary/Family,Physician [Primary Care Provider] - Patient/Caregiver Discharge Instructions Education Materials: What Is Palliative Care?, Urinary Tract Infections in Men, Understanding Urinary Tract ..., ED Pneumonia (Adult) Print Language: Occitan Stand Alone Forms: [employer]ulee Award Info., Patient Portal Info Letter Discharge Order Discharge Orders: Discharge (Routine); Ordered 09/22/24 Ordered By: Jasvir Coleman Quality Discharge Quality Measures VTE prophylaxis Attestestation MD Attestation I reviewed labs, imaging, EKG, home medications and prior available records. Face to face evaluation was performed by me. I have personally examined the patient and discussed assessment and plan with the IM team. I reviewed the resident note and agree with the plan with exceptions as below. Sepsis secondary to right upper lobe pneumonia Acute hypoxic respiratory failure Rectal cancer with metastases Pulmonary metastasis Essential hypertension BPH Continue p.o. Augmentin Urine culture is showing gram-negative rods. Blood culture is showing gram-positive cocci in 1/2 bottles. Discussed with patient: He wants to go hospice and does not want to wait in the hospital pending full results. He agrees to be discharged on empiric treatment as he wants to be more comfortable and hospice status Management of pain as needed He has a poor prognosis from his advanced malignancy Discussed with patient and social services counselor: He is interested in going home with hospice. Will discharge back to his rehab facility with palliative services. May change to home with hospice after Time spent is 40 minutes. More than 50% of the time was spent on patient education and coordination of care.
--- NOTE | 2024-09-22 15:09 | PC.SS ---
SS spoke to Jessica from [email or web address] [phone] to setup transportation but was unsuccessful. Per Jessica from [email or web address], she is not trained with patient's health insurance and is out of her scope of practice. Jessica attempted to contact 2 different representatives but they were also not trained. Jessica transferred SS back to automated system. SS was able to setup gurney transportation with Milena from [email or web address] [phone] [facility]. Ref# [id number]. Per Milena, estimated time is 3 hours for transportation but she will make note pt is ready at 5pm. SS has requested [facility] for transport. Per Milena, [facility] is not guaranteed. has provided Milena with the phone# [phone] nurses station. has sent patient's facesheet and Ambulance form to [facility] using [employer] SS spoke to Michelle from [facility] who has placed pt on will call list until they have been contacted by [email or web address]. Michelle is aware transportation time is for 5pm to [facility]. Bedside nurse, Erin is aware. Pt is aware. Katja from [facility] is aware. Rebecca ANGEL is aware and SS provided her with [facility]'s phone# and ref# [id number]. SNF packet is prepared and placed on patient's chart.
[2024-09-22 16:00] VITALS: BP 143/88; PULSE 83; RESP 18; TEMP 37; O2SAT 97
--- NOTE | 2024-09-22 16:30 | PC.SS ---
RAMY was informed by bedside nurse, Roel she received call from [facility] and they will contact [facility] for transportation. SS called Michelle and provided her with phone# to nurses station and Shoshana FELIZ
== END 2024-09-22 19:33 | disposition skilled nursing facility (03) | DRG 194 ==
LOC: SERX 14:43 → SERHOLD 09-21 02:00 → S3NX 09-21 06:26
PROVIDERS: Physician Assistant; Admitting Provider Student in an Organized Health Care Education/Training Program; Emergency Provider Emergency Medicine; Visit Provider Student in an Organized Health Care Education/Training Program
DX: J18.9 Pneumonia, unspecified organism (principal); C19 Malignant neoplasm of rectosigmoid junction; C78.01 Secondary malignant neoplasm of right lung; C78.02 Secondary malignant neoplasm of left lung; C78.7 Secondary malignant neoplasm of liver and intrahepatic bile duct; C79.72 Secondary malignant neoplasm of left adrenal gland; C79.51 Secondary malignant neoplasm of bone; C79.71 Secondary malignant neoplasm of right adrenal gland; Z59.00 Homelessness unspecified; E78.5 Hyperlipidemia, unspecified; G89.29 Other chronic pain; H40.9 Unspecified glaucoma; I10 Essential (primary) hypertension; N40.0 Benign prostatic hyperplasia without lower urinary tract symptoms; K59.00 Constipation, unspecified; D63.8 Anemia in other chronic diseases classified elsewhere; Z51.5 Encounter for palliative care; Z79.899 Other long term (current) drug therapy; Z87.891 Personal history of nicotine dependence; Z86.19 Personal history of other infectious and parasitic diseases
CPT/HCPCS: 36415; 70450; 71045; 71260; 74177; 80053; 80307; 80320; 81001; 82140; 82150; 83605; 83690; 83735; 84100; 84145; 84484; 85025; 85652; 86140; 87040; 87077; 87081; 87086; 87186; 87811; 93005; 96365; 96367; 99285; A4649; G0378; J0456; J0696; J1650; J7050; Q9967; A9270; G0480